=== PATIENT | female | born 1940 | race Asian ===

== ENCOUNTER → 2022-01-16 13:20 | Outpatient (BNVA) | payer MEDICARE, SELFPAY | PROVIDERS: PCP Internal Medicine; Visit Provider Internal Medicine Endocrinology, Diabetes & Metabolism | DX: E21.3 Hyperparathyroidism, unspecified (principal); E04.2 Nontoxic multinodular goiter; M81.0 Age-related osteoporosis without current pathological fracture; Z79.899 Other long term (current) drug therapy | CPT/HCPCS: 99212 ==

== ENCOUNTER 2022-01-29 13:47 | Outpatient (REF) | payer MEDICARE, SELFPAY ==
[2022-01-29 14:37] LABS: Calcium 11.3 mg/dL (8.4-10.2)
[2022-01-29 15:02] LABS: Vitamin D 25-OH Total 38.9 ng/mL (>30)
[2022-01-30 12:06] LABS: Calcium (PTHI) 11.1 mg/dL (8.6-10.4); PTHI 143 pg/mL (16-77)
== END 2022-01-29 13:48 | disposition home or self-care (01) ==
LOC: HO.LAB 13:47
PROVIDERS: Visit Provider Internal Medicine Endocrinology, Diabetes & Metabolism
DX: E21.3 Hyperparathyroidism, unspecified (principal)
CPT/HCPCS: 36415; 82040; 82306; 82310; 83970

== ENCOUNTER → 2022-02-14 14:29 | Outpatient (BNVA) | payer MEDICARE, SELFPAY | PROVIDERS: Visit Provider Internal Medicine Endocrinology, Diabetes & Metabolism | DX: E21.0 Primary hyperparathyroidism (principal) | CPT/HCPCS: 99212 ==

== ENCOUNTER 2022-03-18 13:24 | Outpatient (REF) | payer MEDICARE, SELFPAY ==
--- NOTE | ~2022-03-18 | MM_ITS ---
EXAMINATION: BONE DENSITOMETRY CLINICAL INDICATION: Hyperparathyroidism, unspecified. COMPARISON: Baseline BD dated 09/16/2018. This is the patient's baseline examination for the forearm radius 33%. TECHNIQUE: Using a [employer] DXA System (software version: 13.1) manufactured by [employer], dual-energy x-ray absorptiometry was performed of the lumbar spine, left hip, and left forearm radius 33%. The images are of good technical quality. Summary results are attached. FINDINGS: AP SPINE L1-L4: Current: BMD 0.753 g/cm2, Z-score -1.6, T-score -3.6, osteoporosis, 4.6% decrease from baseline (<5% change is not significant). Baseline: BMD 0.789 g/cm2. LEFT FEMUR, NECK: Current: BMD 0.623 g/cm2, Z-score -0.8, T-score -3.0, osteoporosis. Baseline: BMD 0.635 g/cm2. LEFT FEMUR, TOTAL: Current: BMD 0.554 g/cm2, Z-score -1.5, T-score -3.6, osteoporosis, 1.6% decrease from baseline (<5% change is not significant). Baseline: BMD 0.563 g/cm2. LEFT FOREARM RADIUS 33%: BMD 0.524 g/cm2, Z-score -1.3, T-score -4.0, osteoporosis. Prior: Not previously measured. IDENTIFIED RISK FACTORS: Osteoporosis, hyperparathyroidism, dementia. Early menopause, secondary osteoporosis. HISTORY OF FRACTURE: None listed. MEDICATIONS: Vitamin D. MM/XR DEXA axial skeleton IMPRESSION: 1. DIAGNOSIS: Osteoporosis based on the lowest T-score value of -4.0 in the forearm radius 33% applying World Health Organization criteria. 2. 10-YEAR FRACTURE RISK PREDICTION, FRAX: According to the guidelines, FRAX calculation should only be performed on patients in the osteopenia bone density category. Therefore, FRAX was not performed on this patient. 3. Treatment Recommendations: NOF guidelines recommend consideration for treatment in postmenopausal women and men age 50 and older presenting with the following: -A hip or vertebral (clinical or morphometric) fracture. -T-score less than or equal to -2.5 at the femoral neck or spine after appropriate evaluation to exclude secondary causes. -Low bone mass at the hip or spine and a 10-year fracture probability by FRAX of greater than or equal to 3% for hip fracture or greater than or equal to 20% for major osteoporotic fracture based on the [place] adapted WHO algorithm. 4. Other Recommendations: All treatment decisions require clinical judgment and consideration of individual patient factors, including patient preferences, comorbidities, previous drug use, risk factors not captured in the FRAX model (e.g. frailty, falls, vitamin D deficiency, increased bone turnover, interval significant decline in bone density) and possible under or overestimation of fracture risk by FRAX. Additional medical evaluation for secondary cause of low bone mineral density may be appropriate. FUTURE SCAN RECOMMENDATION: People with diagnosed cases of osteoporosis or at high risk for fracture should have regular bone mineral density tests. For patients eligible for Medicare, routine testing is allowed once every 2 years. The testing frequency can be increased to one year for patients who have rapidly progressing disease, those who are receiving or discontinuing medical therapy to restore bone mass, or have additional risk factors.
--- NOTE | ~2022-03-18 | US_ITS ---
EXAMINATION: US RETROPERITONEAL LIMITED (RENAL ONLY) CLINICAL INFORMATION: Hyperparathyroidism, unspecified. COMPARISON: None TECHNIQUE: Real-time imaging of the kidneys. FINDINGS: RIGHT KIDNEY: 9.0 x 4.4 x 4.5 cm (SAG x AP x TRV). The kidney is normal in size, contour, and echogenicity. Renal cortical thickness is normal. No calculi or focal parenchymal lesions. No hydronephrosis. LEFT KIDNEY: 10.2 x 5.1 x 4.6 cm (SAG x AP x TRV). The kidney is normal in size, contour, and echogenicity. Renal cortical thickness is normal. No calculi or focal parenchymal lesions. No hydronephrosis. US/US renal BI IMPRESSION: No hydronephrosis or nephrolithiasis.
== END 2022-03-18 13:25 | disposition home or self-care (01) ==
LOC: HO.US 13:24
PROVIDERS: Visit Provider Internal Medicine Endocrinology, Diabetes & Metabolism
DX: Z13.820 Encounter for screening for osteoporosis (principal); E21.3 Hyperparathyroidism, unspecified; Z78.0 Asymptomatic menopausal state; M81.0 Age-related osteoporosis without current pathological fracture
CPT/HCPCS: 76775; 77080

== ENCOUNTER 2022-05-26 10:55 | Outpatient (REF) | payer MEDICARE, SELFPAY ==
[2022-05-26 12:34] LABS: Albumin Level 4.1 g/dL (3.5-5.0); Calcium 10.1 mg/dL (8.4-10.2)
== END 2022-05-26 10:56 | disposition home or self-care (01) ==
LOC: HO.LAB 10:55
PROVIDERS: PCP Nurse Practitioner Family; Visit Provider Internal Medicine Endocrinology, Diabetes & Metabolism
DX: E21.3 Hyperparathyroidism, unspecified (principal)
CPT/HCPCS: 36415; 82040; 82310

== ENCOUNTER → 2022-05-27 10:28 | Outpatient (BNVA) | payer MEDICARE, SELFPAY | PROVIDERS: Visit Provider Internal Medicine Endocrinology, Diabetes & Metabolism | DX: E21.3 Hyperparathyroidism, unspecified (principal) | CPT/HCPCS: 99212 ==

== ENCOUNTER 2022-11-26 13:20 | Outpatient (REF) | payer OTHER, SELFPAY ==
[2022-11-26 15:31] LABS: Free T4 (Free Thyroxine) 0.98 ng/dL (0.71-1.85); Thyroid Stimulating Hormone 2.74 uIU/mL (0.32-4.0)
[2022-11-27 15:39] LABS: Calcium (PTHI) 9.5 mg/dL (8.6-10.4); PTHI 58 pg/mL (16-77)
== END 2022-11-26 13:21 | disposition home or self-care (01) ==
LOC: HO.LAB 13:20
PROVIDERS: Visit Provider Internal Medicine Endocrinology, Diabetes & Metabolism
DX: E21.3 Hyperparathyroidism, unspecified (principal); E04.2 Nontoxic multinodular goiter; M81.0 Age-related osteoporosis without current pathological fracture
CPT/HCPCS: 36415; 83970; 84439; 84443; 99212

== ENCOUNTER 2022-12-15 14:16 | Outpatient (REF) | payer OTHER, SELFPAY ==
--- NOTE | ~2022-12-15 | US_ITS ---
EXAMINATION: US THYROID CLINICAL INFORMATION: Nontoxic multinodular goiter. COMPARISON: Ultrasound thyroid 01/04/2020 and 11/04/2018. US-guided thyroid biopsy 12/30/2018. TECHNIQUE: Linear transducer grayscale and color Doppler examination with attention to the region of the thyroid. FINDINGS: SIZE: Measurements of the thyroid lobes and nodules are given in sagittal, anteroposterior and transverse dimensions respectively. Right Thyroid Lobe: 4.9 x 1.7 x 2.2 cm, volume 9.6 mL. Previously 5.6 x 1.7 x 2.1 cm, volume 10.6 mL. Parenchyma: The gland echotexture is heterogeneous. Thyroid vascularity is increased. Left Thyroid Lobe: 4.4 x 1.7 x 1.7 cm, volume 6.7 mL. Previously 5.0 x 1.4 x 1.6 cm, volume 6.0 mL. Parenchyma: The gland echotexture is heterogeneous. Thyroid vascularity is increased. Isthmus: 0.4 cm in maximum AP dimension. Previously 0.1 cm. Estimated total number of nodules greater than or equal to 1 cm: 4. [employer] nodules are described as follows: 1. Location: Right mid. Size: 2.8 x 1.3 x 1.8 cm, volume 3.4 mL. Previously: 2.3 x 1.3 x 1.9 cm, volume 3.0 mL. Nodule characteristics: Composition: Solid/almost completely solid (2). Echogenicity: Isoechoic (1). Shape: Not taller than wide (0). Margins: Ill-defined (0). Echogenic Foci: Punctate echogenic foci (3). ACR TI-RADS total points: 6 ACR TI-RADS category: 4 Significant change in size (>/= 20% in 2 dimensions and minimal increase of 2 mm or 50% or greater increase in volume): No Change in features: No Change in ACR TI-RADS risk category: No 2. Location: Right medial mid. Size: 0.9 x 0.4 x 0.8 cm, volume 0.1 mL. Previously: 0.9 x 0.4 x 0.7 cm, volume 0.1 mL. Nodule characteristics: Composition: Solid (2). Echogenicity: Isoechoic (1). Shape: Not taller than wide (0). Margins: Smooth (0). Echogenic Foci: None (0). ACR TI-RADS total points: 3 ACR TI-RADS category: 3 Significant change in size (>/= 20% in 2 dimensions and minimal increase of 2 mm or 50% or greater increase in volume): No Change in features: Change in ACR TI-RADS risk category: No 3. Location: Left superior. Size: 1.6 x 1.2 x 1.0 cm, volume 1.0 mL. Previously: New since the previous study. Nodule characteristics: Composition: Solid (2). Echogenicity: Isoechoic (1). Shape: Taller than wide (3). Margins: Ill-defined (0). Echogenic Foci: Punctate echogenic foci (3). ACR TI-RADS total points: 9 ACR TI-RADS category: 5 4. Location: Left mid. Size: 1.5 x 0.9 x 0.9 cm, volume 0.6 mL. Previously: 1.5 x 1.0 x 1.2 cm, volume 0.9 mL. Nodule characteristics: Composition: Solid/almost completely solid (2). Echogenicity: Isoechoic (1). Shape: Not taller than wide (0). Margins: Ill-defined (0). Echogenic Foci: Punctate echogenic foci (3). ACR TI-RADS total points: 6 ACR TI-RADS category: 4 Significant change in size (>/= 20% in 2 dimensions and minimal increase of 2 mm or 50% or greater increase in volume): No Change in features: No Change in ACR TI-RADS risk category: No 5. Location: Left inferior. Size: 1.4 x 0.8 x 1.2 cm, volume 0.7 mL. Previously: 1.7 x 0.6 x 1.3 cm, volume 0.7 mL. Nodule characteristics: Composition: Solid/almost completely solid (2). Echogenicity: Isoechoic (1). Shape: Not taller than wide (0). Margins: Smooth (0). Echogenic Foci: None (0). ACR TI-RADS total points: 3 ACR TI-RADS category: 3 Significant change in size (>/= 20% in 2 dimensions and minimal increase of 2 mm or 50% or greater increase in volume): No Change in features: No Change in ACR TI-RADS risk category: No NODES: No lymphadenopathy is seen in the tissue surrounding the thyroid gland. US/US thyroid IMPRESSION: 1. A 2.8 cm in maximal diameter right thyroid lobe interpolar nodule and a 1.6 cm in maximal diameter left thyroid lobe interpolar nodule meet ACR biopsy criteria and are amenable to ultrasound-guided biopsy, if clinically indicated and not already performed. 2. There is a mild asymmetric goiter, right lobe greater than left. 3. There is heterogeneous thyroid echotexture and increased vascularity, which can be associated with thyroiditis. ACR TI-RADS RECOMMENDATION REFERENCE: Ultrasound-guided fine-needle aspiration, followup ultrasound, no further follow up. * TR1 (0 point) and TR2 (2 points): No FNA or follow up. * TR3 (3 points): FNA if more than or equal to 2.5 cm in maximum dimension, followup ultrasound in 1, 3 and 5 years if 1.5 to 2.4 cm in maximum dimension. * TR4 (4-6 points): FNA if more than or equal to 1.5 cm in maximum dimension, followup ultrasound in 1, 2, 3 and 5 years if 1 to 1.4 cm in maximum dimension. * TR5 (more than or equal to 7 points): FNA if more than or equal to 1 cm in maximum dimension, followup ultrasound every year for 5 years if 0.5 to 0.9 cm in maximum dimension. * TR3, TR4 or TR5 nodules that are below the size threshold for followup receive no follow up.
== END 2022-12-15 14:17 | disposition home or self-care (01) ==
LOC: HO.US 14:16
PROVIDERS: Visit Provider Internal Medicine Endocrinology, Diabetes & Metabolism
DX: E04.2 Nontoxic multinodular goiter (principal)
CPT/HCPCS: 76536

== ENCOUNTER 2023-06-02 09:37 | Outpatient (AMB) | payer MEDICARE, SELFPAY ==
--- NOTE | 2023-06-02 09:41 | MHC.OFFVIS ---
Intake Vital Signs 06/02/23 09:45 Height 5 ft 5 in Weight 134 lb BMI 22.3 BP 137/74 Blood Pressure Location Lt brachial Pulse 72 Intake Visit Reasons: osteoporosis and MNG Intake Note: Patient presents for osteoporosis and MNG follow up visit. Information Interpreted: non-clinical & clinical (Mita Rojo) Accompanied by: Son Allergies No Known Allergies Allergy (Verified 06/02/23 09:47) Medication List - Last Reconciled 06/02/23 by Lamin Lazaro MD alendronate 70 mg PO QWEEK amlodipine 2.5 mg PO DAILY atorvastatin 10 mg PO DAILY cholecalciferol (vitamin D3) 50 mcg PO DAILY donepezil 10 mg PO BEDTIME HPI HPI Comments History of Present Illness Details This is a 83-year-old Mandarin female with a history of primary hyperparathyroidism and osteoporosis. s vitamin D3 2000 IU per day . No kidney stones in past. No fragility fx in past . S/P parathyroidectomy with removal of R inferor parathyroid She also has a history of a multinodular goiter status post FNA of a left midpole nodule and right nodule 12/30/2018 with benign cytology. Recent thyroid ultrasound November 2022 showed stability in size of the nodules On alendronate for osteoporosis [facility] Medical History (Updated 11/26/22 @ 13:56 by Lamin Lazaro MD) Hyperparathyroidism Multinodular goiter (nontoxic) Osteoporosis Surgical History History of back surgery Hx of oral surgery Family History Father Diabetes Mother No problems noted. Social History (Updated 11/26/22 @ 13:33 by SHELIA Herndon) Household Members: None Alcohol intake: never Patient Tobacco Use Status: Never used Tobacco Physical Exam Vital Signs: Last Vital Signs Pulse 72 06/02/23 09:45 BP 137/74 06/02/23 09:52 Const Other: Thyroid gland is normal size weighs by 15 g per day no thyroid nodules palpated. Reflexes 2+ DTR. Assessment & Plan Assessment & Plan (1) Osteoporosis: Code(s): M81.0 - Age-related osteoporosis without current pathological fracture Plan: Would stay on vitamin-D supplementation as well as alendronate. (2) Hyperparathyroidism: Code(s): E21.3 - Hyperparathyroidism, unspecified Plan: This 83-year-old female with a history of primary hyperparathyroidism status post parathyroidectomy with normalization of calcium and PTH (3) Multinodular goiter (nontoxic): Code(s): E04.2 - Nontoxic multinodular goiter Plan: She is status post FNA of a right and left thyroid nodule with benign cytology in the past. Ultrasound shows stability in the size of the nodules Will recheck TSH and free T4 . Continue to follow with serial ultrasound Orders: Orders Free T4 (Free Thyroxine) Today E04.2 - Nontoxic multinodular goiter, E21.3 - Hyperparathyroidism, unspecified, M81.0 - Age-related osteoporosis without current pathological fracture Thyroid Stimulating Hormone Today E04.2 - Nontoxic multinodular goiter, E21.3 - Hyperparathyroidism, unspecified, M81.0 - Age-related osteoporosis without current pathological fracture Coding Level of Care Code Est Pt Level 3 (28841) Diagnoses Osteoporosis M81.0 Hyperparathyroidism E21.3 Multinodular goiter (nontoxic) E04.2
[2023-06-02 09:45] VITALS: BP 137/74; PULSE 72; BMI 22.3
== END 2023-06-02 10:06 | disposition home or self-care (01) ==
PROVIDERS: PCP Internal Medicine; Referring Provider Internal Medicine; Visit Provider Internal Medicine Endocrinology, Diabetes & Metabolism
DX: M81.0 Age-related osteoporosis without current pathological fracture (principal); E21.3 Hyperparathyroidism, unspecified; E04.2 Nontoxic multinodular goiter
CPT/HCPCS: 99213

== ENCOUNTER → 2023-06-02 09:37 | Outpatient (BNVA) | payer MEDICARE, SELFPAY | PROVIDERS: Visit Provider Internal Medicine Endocrinology, Diabetes & Metabolism | DX: M81.0 Age-related osteoporosis without current pathological fracture (principal); E21.3 Hyperparathyroidism, unspecified; E04.2 Nontoxic multinodular goiter | CPT/HCPCS: 99212 ==

== ENCOUNTER 2023-06-02 10:09 | Outpatient (REF) | payer MEDICARE, SELFPAY ==
[2023-06-02 14:26] LABS: Free T4 (Free Thyroxine) 1.05 ng/dL (0.71-1.85)
== END 2023-06-02 10:10 | disposition home or self-care (01) ==
LOC: HO.10HDL 10:09
PROVIDERS: Visit Provider Internal Medicine Endocrinology, Diabetes & Metabolism
DX: M81.0 Age-related osteoporosis without current pathological fracture (principal); E04.2 Nontoxic multinodular goiter; E21.3 Hyperparathyroidism, unspecified
CPT/HCPCS: 36415; 84439; 84443

== ENCOUNTER 2024-06-03 11:47 | Outpatient (REF) | payer MEDICARE, SELFPAY ==
[2024-06-03 13:39] LABS: Vitamin D 25-OH Total 59.1 ng/mL (>30)
[2024-06-04 18:18] LABS: Calcium, Ionized 5.3 mg/dL (4.7-5.5)
== END 2024-06-03 11:48 | disposition home or self-care (01) ==
LOC: HO.LAB 11:47
PROVIDERS: Visit Provider Nurse Practitioner Adult Health
DX: M81.0 Age-related osteoporosis without current pathological fracture (principal)
CPT/HCPCS: 36415; 82040; 82306; 82310; 82330

== ENCOUNTER 2024-06-06 11:42 | Outpatient (REF) | payer MEDICARE, SELFPAY ==
[2024-06-12 16:09] LABS: N-Telopeptide 15 (see note); NTXCreaRU 101 mg/dL (20-275)
== END 2024-06-06 11:43 | disposition home or self-care (01) ==
LOC: HO.LNP 11:42
PROVIDERS: Visit Provider Nurse Practitioner Adult Health
DX: M81.0 Age-related osteoporosis without current pathological fracture (principal)
CPT/HCPCS: 82523

== ENCOUNTER 2024-06-07 09:10 | Outpatient (AMB) | payer MEDICARE, SELFPAY ==
--- NOTE | 2024-06-07 09:11 | A.OFFVIS_ITS ---
Vital Signs 06/07/24 09:15 Height 5 ft 3 in Weight 141 lb 5.061 oz BMI 25.0 BP 162/72 H Blood Pressure Location Lt brachial Position Sitting Pulse 59 Pulse Source Pulse Oximeter Intake Visit Reasons: osteoporosis and MNG/CONFIRMED Intake Note: Patient present today for Osteoporosis and MNG follow up visit. Transcribing Machine Operator Services: Transcribing Machine Operator Offered & Declined Accompanied by: Grand Child Allergies No Known Allergies Allergy (Verified 06/07/24 09:17) HPI Comments Details: This is a 84-year-old Mandarin female with a history of primary hyperparathyroidism and osteoporosis. s vitamin D3 2000 IU per day . No kidney stones in past. No fragility fx in past . S/P parathyroidectomy with removal of R inferor parathyroid She also has a history of a multinodular goiter status post FNA of a left midpole nodule and right nodule 12/30/2018 with benign cytology. Recent thyroid ultrasound November 2022 showed stability in size of the nodules On alendronate for osteoporosis. No fx since last visit [facility] Medical History (Updated 11/26/22 @ 13:56 by Lamin Lazaro MD) Osteoporosis Multinodular goiter (nontoxic) Hyperparathyroidism Surgical History History of back surgery Hx of oral surgery Family History Father Diabetes Mother No problems noted. Social History (Updated 11/26/22 @ 13:33 by SHELIA Herndon) Household Members: None Alcohol intake: never Patient Tobacco Use Status: Never used Tobacco Assessment & Plan Assessment & Plan (1) Osteoporosis: Code(s): M81.0 - Age-related osteoporosis without current pathological fracture Category: Medical Plan: Would stay on vitamin-D supplementation as well as alendronate. Urine NTX is pending Will check urine NTX when available (2) Hyperparathyroidism: Code(s): E21.3 - Hyperparathyroidism, unspecified Category: Medical Plan: This 83-year-old female with a history of primary hyperparathyroidism status post parathyroidectomy with normalization of calcium and PTH repeat calcium recently is normal (3) Multinodular goiter (nontoxic): Code(s): E04.2 - Nontoxic multinodular goiter Category: Medical Plan: She is status post FNA of a right and left thyroid nodule with benign cytology in the past. Ultrasound shows stability in the size of the nodules Will recheck TSH and free T4 . Will also obtain repeat thyroid ultrasound Orders: Orders Free T4 (Free Thyroxine) Today E04.2 - Nontoxic multinodular goiter Thyroid Stimulating Hormone Today E04.2 - Nontoxic multinodular goiter US thyroid Today E04.2 - Nontoxic multinodular goiter Coding Level of Care Code Est Pt Level 3 (82858) Diagnoses Osteoporosis M81.0 Hyperparathyroidism E21.3 Multinodular goiter (nontoxic) E04.2
[2024-06-07 09:15] VITALS: BP 162/72; PULSE 59; BMI 25.0
== END 2024-06-07 09:41 | disposition home or self-care (01) ==
PROVIDERS: PCP Internal Medicine; Visit Provider Internal Medicine Endocrinology, Diabetes & Metabolism
DX: M81.0 Age-related osteoporosis without current pathological fracture (principal); E21.3 Hyperparathyroidism, unspecified; E04.2 Nontoxic multinodular goiter
CPT/HCPCS: 99213

== ENCOUNTER → 2024-06-07 09:10 | Outpatient (BNVA) | payer MEDICARE, SELFPAY | PROVIDERS: PCP Internal Medicine; Visit Provider Internal Medicine Endocrinology, Diabetes & Metabolism | DX: M81.0 Age-related osteoporosis without current pathological fracture (principal); E21.3 Hyperparathyroidism, unspecified; E04.2 Nontoxic multinodular goiter | CPT/HCPCS: 99212 ==

== ENCOUNTER 2024-06-23 09:48 | Outpatient (REF) | payer MEDICARE, SELFPAY ==
--- NOTE | ~2024-06-23 | US_ITS ---
EXAMINATION: US THYROID CLINICAL INFORMATION: Nontoxic multinodular goiter, fine needle aspiration December 30, 2018. COMPARISON: 12/15/2022, 01/04/2020, 11/04/2018. TECHNIQUE: Linear transducer grayscale and color Doppler examination with attention to the region of the thyroid. FINDINGS: SIZE: Measurements of the thyroid lobes and nodules are given in sagittal, anteroposterior and transverse dimensions respectively. Right Thyroid Lobe: 5.0 x 1.5 x 2.5 cm, volume 9.6 mL. Parenchyma: The gland echotexture is heterogeneous. Thyroid vascularity is increased. Left Thyroid Lobe: 4.1 x 1.7 x 1.5 cm, volume 5.4 mL. Parenchyma: The gland echotexture is heterogeneous. Thyroid vascularity is increased. Isthmus: 0.2 cm in maximum AP dimension. Estimated total number of nodules greater than or equal to 1 cm: 4. [employer] nodules are described as follows: 1. Location: Right mid. Size: 2.7 x 1.4 x 1.9 cm, volume 3.8 mm, previously 2.8 x 1.3 x 1.8 cm, volume of 3.4 mL. Nodule characteristics: Composition: Solid/almost completely solid (2). Echogenicity: Isoechoic (1). Shape: Not taller than wide (0). Margins: Ill-defined (0). Echogenic Foci: Punctate echogenic foci (3). ACR TI-RADS total points: 6, previously 6. ACR TI-RADS category: 4, previously 4. 2. Location: Right medial midpole. Size: 0.8 x 0.3 x 1.1 cm, volume 0.1 mm, previously 0.9 x 0.4 x 0.8 cm, volume 0.1 mL. Nodule characteristics: Composition: Solid/almost completely solid (2). Echogenicity: Isoechoic (1). Shape: Not taller than wide (0). Margins: Smooth (0). Echogenic Foci: None (0). ACR TI-RADS total points: 3, previously 3. ACR TI-RADS category: 3, previously 3. 3. Location: Left upper. Size: 1.1 x 0.8 x 1.0 cm, volume 0.5 mL, volume 1.6 x 1.2 x 1.0 cm, volume 1.0 mL mL. Nodule characteristics: Composition: Solid (2). Echogenicity: Isoechoic (1). Shape: Not taller than wide (0). Margins: Ill-defined (0). Echogenic Foci: Punctate echogenic foci (3). ACR TI-RADS total points: 6, previously 9. ACR TI-RADS category: 4, previously 5. 4. Location: Left mid. Size: 1.3 x 0.8 x 1.1 cm, volume 0.6 mm, previously 1.5 x 0.9 x 0.9 cm, volume 0.6 mL. Nodule characteristics: Composition: Solid/almost completely solid (2). Echogenicity: Isoechoic (1). Shape: Not taller than wide (0). Margins: Ill-defined (0). Echogenic Foci: Punctate echogenic foci (3). ACR TI-RADS total points: 6, previously 6. ACR TI-RADS category: 4, previously 4. 5. Location: Left lower. Size: 1.7 x 0.9 x 1.4 cm, volume 1.1 mL, previously 1.4 x 0.8 x 1.2 cm, volume 0.7 mL Nodule characteristics: Composition: Solid/almost completely solid (2). Echogenicity: Isoechoic (1). Shape: Not taller than wide (0). Margins: Smooth (0). Echogenic Foci: None (0). ACR TI-RADS total points: 3, previously 3. ACR TI-RADS category: 3, previously 3. NODES: No lymphadenopathy is seen in the tissue surrounding the thyroid gland. US/US thyroid IMPRESSION: Multinodular thyroid gland. 2.7 cm right mid TR4 nodule meets criteria for biopsy. Fine-needle aspiration recommended if not already performed. Additional thyroid nodules as detailed above for which annual surveillance is recommended. ACR TI-RADS RECOMMENDATION REFERENCE: Ultrasound-guided fine-needle aspiration, followup ultrasound, no further follow up. * TR1 (0 point) and TR2 (2 points): No FNA or follow up. * TR3 (3 points): FNA if more than or equal to 2.5 cm in maximum dimension, followup ultrasound in 1, 3 and 5 years if 1.5 to 2.4 cm in maximum dimension. * TR4 (4-6 points): FNA if more than or equal to 1.5 cm in maximum dimension, followup ultrasound in 1, 2, 3 and 5 years if 1 to 1.4 cm in maximum dimension. * TR5 (more than or equal to 7 points): FNA if more than or equal to 1 cm in maximum dimension, followup ultrasound every year for 5 years if 0.5 to 0.9 cm in maximum dimension. * TR3, TR4 or TR5 nodules that are below the size threshold for followup receive no follow up. Electronically signed by: Jes Tang MD 07/06/2024 10:23 AM EDT
--- NOTE | ~2024-06-23 | MM_ITS ---
EXAMINATION: BONE DENSITOMETRY CLINICAL INDICATION: Hyperparathyroidism. COMPARISON: Previous BD dated 03/18/2022 and baseline BD dated 09/16/2018. TECHNIQUE: Using a [employer] DXA System (software version: 13.1) manufactured by [employer], dual-energy x-ray absorptiometry was performed of the lumbar spine, left hip, and left forearm radius 33%. The images are of good technical quality. Summary results are attached. FINDINGS: LEFT FEMUR, NECK: Current: BMD 0.634 g/cm2, Z-score -0.6, T-score -2.9, osteoporosis. Prior: BMD 0.623 g/cm2. Baseline: BMD 0.635 g/cm2. LEFT FEMUR, TOTAL: Current: BMD 0.570 g/cm2, Z-score -1.3, T-score -3.5, osteoporosis, 2.9% increase from previous, 1.2% increase from baseline (<5% change is not significant). Prior: BMD 0.554 g/cm2. Baseline: BMD 0.563 g/cm2. AP SPINE L1-L4: Current: BMD 0.855 g/cm2, Z-score -0.7, T-score -2.7, osteoporosis, 13.5% increase from previous, 8.4% increase from baseline (<5% change is not significant). Prior: BMD 0.753 g/cm2. Baseline: BMD 0.789 g/cm2. LEFT FOREARM RADIUS 33%: BMD 0.558 g/cm2, Z-score -0.7, T-score -3.6, osteoporosis, 6.5% increase from baseline (<5% change is not significant). Baseline: BMD 0.524 g/cm2. IDENTIFIED RISK FACTORS: Menopause, dementia, hyperparathyroidism. HISTORY OF FRACTURE: None listed. MEDICATIONS: Vitamin D. MM/XR DEXA appendicular skeleton IMPRESSION: 1. DIAGNOSIS: Osteoporosis based on the lowest T-score value of -3.6 in the forearm radius 33% applying World Health Organization criteria. 2. 10-YEAR FRACTURE RISK PREDICTION, FRAX: According to the guidelines, FRAX calculation should only be performed on patients in the osteopenia bone density category. Therefore, FRAX was not performed on this patient. 3. Treatment Recommendations: NOF guidelines recommend consideration for treatment in postmenopausal women and men age 50 and older presenting with the following: -A hip or vertebral (clinical or morphometric) fracture. -T-score less than or equal to -2.5 at the femoral neck or spine after appropriate evaluation to exclude secondary causes. -Low bone mass at the hip or spine and a 10-year fracture probability by FRAX of greater than or equal to 3% for hip fracture or greater than or equal to 20% for major osteoporotic fracture based on the [place] adapted WHO algorithm. 4. Other Recommendations: All treatment decisions require clinical judgment and consideration of individual patient factors, including patient preferences, comorbidities, previous drug use, risk factors not captured in the FRAX model (e.g. frailty, falls, vitamin D deficiency, increased bone turnover, interval significant decline in bone density) and possible under or overestimation of fracture risk by FRAX. Additional medical evaluation for secondary cause of low bone mineral density may be appropriate. FUTURE SCAN RECOMMENDATION: People with diagnosed cases of osteoporosis or at high risk for fracture should have regular bone mineral density tests. For patients eligible for Medicare, routine testing is allowed once every 2 years. The testing frequency can be increased to one year for patients who have rapidly progressing disease, those who are receiving or discontinuing medical therapy to restore bone mass, or have additional risk factors. Electronically signed by: Fredrick Hernandez MD 06/29/2024 09:03 AM [facility] HERNANDEZ
== END 2024-06-23 09:49 | disposition home or self-care (01) ==
LOC: HO.MAMMO 09:48
PROVIDERS: PCP Internal Medicine; Visit Provider Internal Medicine Endocrinology, Diabetes & Metabolism
DX: Z13.820 Encounter for screening for osteoporosis (principal); E21.3 Hyperparathyroidism, unspecified; E04.2 Nontoxic multinodular goiter
CPT/HCPCS: 76536; 77081

== ENCOUNTER 2024-10-07 09:12 | Outpatient (REF) | payer MEDICARE, SELFPAY ==
[2024-10-07 12:38] LABS: Albumin Level 4.2 g/dL (3.5-5.0); Anion Gap 11 (12-20); Blood Urea Nitrogen 18 mg/dL (9-16); Calcium 9.7 mg/dL (8.4-10.2); Carbon Dioxide 30 mmol/L (22-29); Chloride 108 mmol/L (96-108); Estimated Glomerular Filt Rate 53; Glucose Random 87 mg/dL (60-115); Potassium 4.2 mmol/L (3.3-5.1); Sodium 145 mmol/L (135-145)
[2024-10-07 12:51] LABS: Parathyroid Hormone Intact 53.3 pg/mL (8.7-77.1)
[2024-10-07 12:55] LABS: Free T4 (Free Thyroxine) 1.11 ng/dL (0.71-1.85); TSH reflex Free T4 2.63 uIU/mL (0.32-4.0); Vitamin D 25-OH Total 63.1 ng/mL (>30)
[2024-10-10 15:02] LABS: Calcium, Ionized 5.2 mg/dL (4.7-5.5)
[2024-10-13 15:49] LABS: Alkaline Phosphatase Bone 11.1 mcg/L (see note)
== END 2024-10-07 09:13 | disposition home or self-care (01) ==
LOC: HO.LAB 09:12
PROVIDERS: PCP Internal Medicine; Visit Provider Student in an Organized Health Care Education/Training Program
DX: E04.2 Nontoxic multinodular goiter (principal); M81.0 Age-related osteoporosis without current pathological fracture; M54.50 Low back pain, unspecified; G89.29 Other chronic pain
CPT/HCPCS: 36415; 80048; 82040; 82306; 82330; 83970; 84075; 84439; 84443; 99212

== ENCOUNTER 2024-10-07 09:12 | Outpatient (AMB) | payer MEDICARE, SELFPAY ==
--- NOTE | 2024-10-07 09:40 | MHC.OFFVIS ---
Vital Signs 10/07/24 09:42 Weight 143 lb 15.39 oz BP 140/68 H Blood Pressure Location Rt brachial Position Sitting Pulse 64 Pulse Source Pulse Oximeter Intake Visit Reasons: Multinodular goiter-confirmed Intake Note: Patient present today for Multinodular goiter office visit. Mathematics Department Chair Required: Yes Mathematics Department Chair [facility] Mathematics Department Chair Services: Mathematics Department Chair Offered & Declined Accompanied by: Son Allergies No Known Allergies Allergy (Verified 10/07/24 09:44) Medication List - Last Reconciled 10/07/24 by Angelica Land MD alendronate 70 mg PO QWEEK amlodipine 2.5 mg PO DAILY atorvastatin 10 mg PO DAILY cholecalciferol (vitamin D3) 50 mcg PO DAILY donepezil 10 mg PO BEDTIME memantine 10 mg PO QPM HPI Comments Details: This is a 84-year-old Mandarin female with a history of primary hyperparathyrodism s/p right inferior parathyroidectomy and osteoporosis. Also follows for MNG. primary hyperparathyroidism osteoporosis s/p right inferior parathyroidectomy 07/2022, with Dr. Eric Marie at [facility] , intraop PTH dropped from 420 to 27 osteoporosis. on fosamax 70 mg weekly unclear on how long she has been on this but patient sons endorses at least been on it for the past 5 years s vitamin D3 2000 IU per day . No kidney stones in past. No fragility fx Dexa 06/25 spine t score -2.7 ,13.7 %increase from 2022 in BMD , left femu nec k-2.9 and total femor -3.5 , 2.9 % increase from 2022 foraearm -3.6 6.5 % increase from baseline Lost 2 inches of height since 1 years Complaining of worsening back pain for the past 1 year HAd a recent fall as fell on knees last week, no known fractures She has all dentures MNG She also has a history of a multinodular goiter unclear year of diagnosis status post FNA of a left midpole nodule and right nodule 12/30/2018 with benign cytology. Recent thyroid ultrasound June 2024 showed stability in size of the nodules Denies compressive symptoms No hypo/hyperthyroid symptoms No family history of thyroid cancer No head or neck radiation history Physical exam General: sitting comfortably in no acute distress HEENT: normocephalic/atraumatic, moist oral mucosa Neck: supple, 2 cm palpable right-sided thyroid nodule , no dorsocervical or supraclavicular fat pads Cardiac: normal heart sounds Pulm: normal breath sounds B/L, no added breath sounds Abd: not distended, no tenderness Extremities: no edema, no signs of myxedema Neuro: AAO x3, Speech: normal, no facial droop, moving all 4 extremities MSK: Tenderness in lower back, as well as unstable gait Laboratory Tests 11/04/18 04/16/19 01/29/22 08:00 08:00 13:58 Calcium 11.3 H Ionized Calcium Albumin 4.0 N-Telopeptide X-linked 42 58 25-OH Vitamin D Total TSH Free T4 PTH Intact 143 H 05/26/22 11/26/22 06/02/23 11:10 14:18 10:15 Calcium 10.1 D Ionized Calcium Albumin 4.1 N-Telopeptide X-linked 25-OH Vitamin D Total TSH 2.70 Free T4 1.05 PTH Intact 58 06/03/24 06/06/24 12:04 09:15 Calcium 10.0 Ionized Calcium 5.3 Albumin 4.0 N-Telopeptide X-linked 15 25-OH Vitamin D Total 59.1 TSH Free T4 PTH Intact US THYROID 06/25 CLINICAL INFORMATION: Nontoxic multinodular goiter, fine needle aspiration December 30, 2018. COMPARISON: 12/15/2022, 01/04/2020, 11/04/2018. TECHNIQUE: Linear transducer grayscale and color Doppler examination with attention to the region of the thyroid. FINDINGS: SIZE: Measurements of the thyroid lobes and nodules are given in sagittal, anteroposterior and transverse dimensions respectively. Right Thyroid Lobe: 5.0 x 1.5 x 2.5 cm, volume 9.6 mL. Parenchyma: The gland echotexture is heterogeneous. Thyroid vascularity is increased. Left Thyroid Lobe: 4.1 x 1.7 x 1.5 cm, volume 5.4 mL. Parenchyma: The gland echotexture is heterogeneous. Thyroid vascularity is increased. Isthmus: 0.2 cm in maximum AP dimension. Estimated total number of nodules greater than or equal to 1 cm: 4. Strategic Debriefing Officer nodules are described as follows: 1. Location: Right mid. Size: 2.7 x 1.4 x 1.9 cm, volume 3.8 mm, previously 2.8 x 1.3 x 1.8 cm, volume of 3.4 mL. Nodule characteristics: Composition: Solid/almost completely solid (2). Echogenicity: Isoechoic (1). Shape: Not taller than wide (0). Margins: Ill-defined (0). Echogenic Foci: Punctate echogenic foci (3). ACR TI-RADS total points: 6, previously 6. ACR TI-RADS category: 4, previously 4. 2. Location: Right medial midpole. Size: 0.8 x 0.3 x 1.1 cm, volume 0.1 mm, previously 0.9 x 0.4 x 0.8 cm, volume 0.1 mL. Nodule characteristics: Composition: Solid/almost completely solid (2). Echogenicity: Isoechoic (1). Shape: Not taller than wide (0). Margins: Smooth (0). Echogenic Foci: None (0). ACR TI-RADS total points: 3, previously 3. ACR TI-RADS category: 3, previously 3. 3. Location: Left upper. Size: 1.1 x 0.8 x 1.0 cm, volume 0.5 mL, volume 1.6 x 1.2 x 1.0 cm, volume 1.0 mL mL. Nodule characteristics: Composition: Solid (2). Echogenicity: Isoechoic (1). Shape: Not taller than wide (0). Margins: Ill-defined (0). Echogenic Foci: Punctate echogenic foci (3). ACR TI-RADS total points: 6, previously 9. ACR TI-RADS category: 4, previously 5. 4. Location: Left mid. Size: 1.3 x 0.8 x 1.1 cm, volume 0.6 mm, previously 1.5 x 0.9 x 0.9 cm, volume 0.6 mL. Nodule characteristics: Composition: Solid/almost completely solid (2). Echogenicity: Isoechoic (1). Shape: Not taller than wide (0). Margins: Ill-defined (0). Echogenic Foci: Punctate echogenic foci (3). ACR TI-RADS total points: 6, previously 6. ACR TI-RADS category: 4, previously 4. 5. Location: Left lower. Size: 1.7 x 0.9 x 1.4 cm, volume 1.1 mL, previously 1.4 x 0.8 x 1.2 cm, volume 0.7 mL Nodule characteristics: Composition: Solid/almost completely solid (2). Echogenicity: Isoechoic (1). Shape: Not taller than wide (0). Margins: Smooth (0). Echogenic Foci: None (0). ACR TI-RADS total points: 3, previously 3. ACR TI-RADS category: 3, previously 3. NODES: No lymphadenopathy is seen in the tissue surrounding the thyroid gland. US/US thyroid IMPRESSION: Multinodular thyroid gland. 2.7 cm right mid TR4 nodule meets criteria for biopsy. Fine-needle aspiration recommended if not already performed. Additional thyroid nodules as detailed above for which annual surveillance is recommended. BONE DENSITOMETRY 06/25 CLINICAL INDICATION: Hyperparathyroidism. COMPARISON: Previous BD dated 03/18/2022 and baseline BD dated 09/16/2018. TECHNIQUE: Using a [employer] DXA System (software version: 13.1) manufactured by [employer], dual-energy x-ray absorptiometry was performed of the lumbar spine, left hip, and left forearm radius 33%. The images are of good technical quality. Summary results are attached. FINDINGS: LEFT FEMUR, NECK: Current: BMD 0.634 g/cm2, Z-score -0.6, T-score -2.9, osteoporosis. Prior: BMD 0.623 g/cm2. Baseline: BMD 0.635 g/cm2. LEFT FEMUR, TOTAL: Current: BMD 0.570 g/cm2, Z-score -1.3, T-score -3.5, osteoporosis, 2.9% increase from previous, 1.2% increase from baseline (<5% change is not significant). Prior: BMD 0.554 g/cm2. Baseline: BMD 0.563 g/cm2. AP SPINE L1-L4: Current: BMD 0.855 g/cm2, Z-score -0.7, T-score -2.7, osteoporosis, 13.5% increase from previous, 8.4% increase from baseline (<5% change is not significant). Prior: BMD 0.753 g/cm2. Baseline: BMD 0.789 g/cm2. LEFT FOREARM RADIUS 33%: BMD 0.558 g/cm2, Z-score -0.7, T-score -3.6, osteoporosis, 6.5% increase from baseline (<5% change is not significant). Baseline: BMD 0.524 g/cm2. IDENTIFIED RISK FACTORS: Menopause, dementia, hyperparathyroidism. HISTORY OF FRACTURE: None listed. MEDICATIONS: Vitamin D. [facility] Medical History (Updated 10/07/24 @ 10:43 by Angelica Land MD) Loss of height Back pain Osteoporosis Multinodular goiter (nontoxic) Hyperparathyroidism Surgical History Hx of oral surgery History of back surgery Family History Father Diabetes Mother No problems noted. Social History Household Members: None Alcohol intake: never Patient Tobacco Use Status: Never used Tobacco Physical Exam Vital Signs: Last Vital Signs Pulse 64 10/07/24 09:42 BP 140/68 H 10/07/24 09:42 Assessment & Plan Assessment & Plan (1) Multinodular goiter (nontoxic): Code(s): E04.2 - Nontoxic multinodular goiter Category: Medical Plan: 84-year-old female with no family history of thyroid cancer, with no personal history of head or neck radiation who has had thyroid nodules at least since 2019. status post FNA of a left midpole nodule and right nodule 12/30/2018 with benign cytology. Recent thyroid ultrasound June 2024 showed stability in size of the nodules Plan: -repeat thyroid ultrasound June 2025 -ordered TSH, free T4. To be done today (2) Osteoporosis: Code(s): M81.0 - Age-related osteoporosis without current pathological fracture Category: Medical Qualifiers: Osteoporosis type: age-related Presence of current pathological fracture: without current pathological fracture Qualified Code(s): M81.0 - Age-related osteoporosis without current pathological fracture Plan: Patient with a history of primary hyperparathyroidism, status post left inferior parathyroidectomy in July [address] Eric Barth at [facility] who subsequently had resolution of hypercalcemia as well as normalization of her parathyroid hormone levels. She has been on Fosamax 70 mg weekly for over 5 years, however most recent bone density done in June 2024 still shows persistent osteoporosis with spine t score -2.7 ,13.7 %increase from 2022 in BMD , left femur nec k-2.9 and total femor -3.5 , 2.9 % increase from 2022 foraearm -3.6 , 6.5 % increase from baseline Unfortunately I do not think the Fosamax was stopped to allow for adequate bone accrual. She has had significant increase in bone density of the lumbar spine as well as the forearm, however bone density in the hip remained stable. Her urine NTX level is also low at 15. I will also check her CTX levels. If those are also consistent with suppressed resorption and given persistent osteoporosis I think I would like to take her off Fosamax over the next year to allow for more bone accrual subsequent to her parathyroidectomy. I will see her back in 6 weeks with these results. We will plan to stop the Fosamax and then repeat a bone density in 2 years, as well as keep an eye on bone resorption markers at 6 months and 1 year marietta. If she continues to have severe osteoporosis with T-scores at -3.5, I might plan to start her on Prolia. She has had history of colon cancer, though no radiation therapy with given prior history of cancer, might stay away from anabolic. She is also complaining of worsening back pain for the past year and she has lost 2 in of height, we will evaluate for fractures in the back she is also having significant pain on the right side of her hip and she did have a fall about a week. We will evaluate with the x-rays. Plan: -do bone resorption markers with CTX and bone alkaline phosphatase levels -continue vitamin-D 2000 units daily -she has minimal nutritional intake of calcium, advised about taking 2-3 servings of calcium daily - ordered x-rays of the thoracic, lumbar spine as well as right hip, follow up in 6 weeks to discuss results (3) Back pain: Code(s): M54.9 - Dorsalgia, unspecified Category: Medical Qualifiers: Back pain location: low back pain Chronicity: chronic Back pain laterality: right Sciatica presence: without sciatica Qualified Code(s): M54.50 - Low back pain, unspecified; G89.29 - Other chronic pain Plan: See above (4) Loss of height: Code(s): R29.890 - Loss of height Category: Medical Plan: See above Plan I spent 40 minutes in reviewing the record, seeing the patient and documenting in the medical record. Orders: Orders Albumin Level Today E04.2 - Nontoxic multinodular goiter, M81.0 - Age-related osteoporosis without current pathological fracture Free T4 (Free Thyroxine) Today E04.2 - Nontoxic multinodular goiter, M81.0 - Age-related osteoporosis without current pathological fracture Vitamin D 25-OH Total Today E04.2 - Nontoxic multinodular goiter, M81.0 - Age-related osteoporosis without current pathological fracture Basic Metabolic Panel Today E04.2 - Nontoxic multinodular goiter, M81.0 - Age-related osteoporosis without current pathological fracture Parathyroid Hormone Intact Today E04.2 - Nontoxic multinodular goiter, M81.0 - Age-related osteoporosis without current pathological fracture XR thoracic spine 2V Today M54.9 - Dorsalgia, unspecified, M81.0 - Age-related osteoporosis without current pathological fracture, R29.890 - Loss of height XR lumbar spine 2-3V Today M54.9 - Dorsalgia, unspecified, M81.0 - Age-related osteoporosis without current pathological fracture, R29.890 - Loss of height US thyroid 06/12/25 E04.2 - Nontoxic multinodular goiter Collagen Type I C-Telopeptide Today E04.2 - Nontoxic multinodular goiter, M81.0 - Age-related osteoporosis without current pathological fracture Calcium Today E04.2 - Nontoxic multinodular goiter, M81.0 - Age-related osteoporosis without current pathological fracture TSH reflex Free T4 Today E04.2 - Nontoxic multinodular goiter, M81.0 - Age-related osteoporosis without current pathological fracture Alkaline Phosphatase Bone Today E04.2 - Nontoxic multinodular goiter, M81.0 - Age-related osteoporosis without current pathological fracture Calcium, Ionized Today E04.2 - Nontoxic multinodular goiter, M81.0 - Age-related osteoporosis without current pathological fracture XR hip RT min 2V Today M54.9 - Dorsalgia, unspecified, M81.0 - Age-related osteoporosis without current pathological fracture, R29.890 - Loss of height Patient Instructions: Do blood work today Do Xrays , someone will call you to schedule this Follow up in 6 weeks to discuss results Continue fosamax 70 mg weekly Continue vitamin D 2000 units daily Incorporate at least 2-3 servings of calcium rich foods in diet , milk, cheese , yogurt Coding Level of Care Code Est Pt Level 5 (08147) Diagnoses Multinodular goiter (nontoxic) E04.2 Age-related osteoporosis without current pathological fracture M81.0 Osteoporosis type: age-related Presence of current pathological fracture: without current pathological fracture Chronic right-sided low back pain without sciatica M54.50; G89.29 Back pain location: low back pain Chronicity: chronic Back pain laterality: right Sciatica presence: without sciatica Loss of height R29.890 Time Spent (min) 40
[2024-10-07 09:42] VITALS: BP 140/68; PULSE 64
== END 2024-10-07 10:32 | disposition home or self-care (01) ==
PROVIDERS: PCP Internal Medicine; Visit Provider Student in an Organized Health Care Education/Training Program
DX: E04.2 Nontoxic multinodular goiter (principal); M81.0 Age-related osteoporosis without current pathological fracture; M54.50 Low back pain, unspecified; G89.29 Other chronic pain
CPT/HCPCS: 99215

== ENCOUNTER 2024-10-08 08:34 | Outpatient (REF) | payer MEDICARE, SELFPAY ==
[2024-10-08 10:36] LABS: Calcium 9.6 mg/dL (8.4-10.2)
[2024-10-12 13:29] LABS: Collagen Type I C-Telopeptide 142 pg/mL (see note)
== END 2024-10-08 08:35 | disposition home or self-care (01) ==
LOC: HO.XRAY 08:34
PROVIDERS: Visit Provider Student in an Organized Health Care Education/Training Program
DX: M81.0 Age-related osteoporosis without current pathological fracture (principal); E04.2 Nontoxic multinodular goiter; M54.9 Dorsalgia, unspecified
CPT/HCPCS: 36415; 72070; 72100; 73502; 82310; 82523

== ENCOUNTER → 2024-12-02 09:45 | Outpatient (BNVA) | payer MEDICARE, SELFPAY | PROVIDERS: PCP Internal Medicine; Visit Provider Student in an Organized Health Care Education/Training Program | DX: M81.0 Age-related osteoporosis without current pathological fracture (principal); M54.50 Low back pain, unspecified; E04.2 Nontoxic multinodular goiter; G89.29 Other chronic pain | CPT/HCPCS: 99212 ==

== ENCOUNTER 2025-05-31 10:10 | Outpatient (REF) | payer MEDICARE, SELFPAY ==
--- NOTE | ~2025-05-31 | US_ITS ---
EXAMINATION: US THYROID HISTORY: E04.2 - Nontoxic multinodular goiter TECHNIQUE: Real-time grayscale ultrasound imaging was performed and images were reviewed. COMPARISON: Comparison is made with the prior examination dated 06/23/2024. FINDINGS: SIZE: The right thyroid lobe measures 5.3 x 1.7 x 2.2 cm. The left thyroid lobe measures 4.4 x 1.9 x 1.9 cm. The isthmus measures 3 mm. FLOW: Flow to the gland is increased. ECHOGENICITY: The echotexture of the gland is heterogeneous. NODULES: Multiple bilateral thyroid nodules are identified as described below: Nodule #: 1 Location: Midportion of the right thyroid lobe measuring 2.7 x 1.3 x 1.8 cm (previously 2.7 x 1.4 x 1.9 cm). Shape: Wider than tall (0 points) Margins: Smooth (0 points) Echotexture: Isoechoic (1 point) Composition: Mixed (1 point) Calcifications: Punctate calcifications (3 points) Total points: 5 TIRADS: TR4: Moderately suspicious. Nodule #: 2 Location: Mid to lower pole of the right thyroid lobe measuring 1.0 x 0.4 x 1.0 cm (previously 0.8 x 0.3 x 1.1 cm). Shape: Wider than tall (0 points) Margins: Smooth (0 points) Echotexture: Isoechoic (1 point) Composition: Mixed (1 point) Calcifications: Punctate calcifications (3 points) Total points: 5 TIRADS: TR4: Moderately suspicious. Nodule #: 3 Location: Upper pole of the left thyroid lobe measuring 1.7 x 1.1 x 1.2 cm (previously 1.0 x 0.8 x 1.3 cm). Shape: Wider than tall (0 points) Margins: Smooth (0 points) Echotexture: Isoechoic (1 point) Composition: Solid (2 points) Calcifications: None (0 points) Total points: 3 TIRADS: TR3: Mildly suspicious. Nodule #: 4 Location: Midportion of the left thyroid lobe measuring 2.1 x 1.0 x 1.6 cm (previously 0.7 x 0.9 x 1.4 cm). Shape: Wider than tall (0 points) Margins: Smooth (0 points) Echotexture: Isoechoic (1 point) Composition: Solid (2 points) Calcifications: None (0 points) Total points: 3 TIRADS: TR3: Mildly suspicious. Nodule #: 5 Location: Lower pole of the left thyroid lobe measuring 0.9 x 0.5 x 1.0 cm (not seen previously). Shape: Wider than tall (0 points) Margins: Smooth (0 points) Echotexture: Isoechoic (1 point) Composition: Mixed (1 point) Calcifications: None (0 points) Total points: 2 TIRADS: TR2: Not suspicious US/US thyroid IMPRESSION: Multinodular thyroid gland. Nodule #1 above in the midportion of the right thyroid lobe meets ACR TI-RADS guidelines for ultrasound-guided fine-needle aspiration if this has not already been performed. The remaining nodules can be followed. ACR TI-RADS Guidelines TR1 (0 points): Benign. No follow-up or biopsy required TR2 (2 points): Not Suspicious. No biopsy or follow up indicated TR3 (3 points): Mildly Suspicious. FNA if >= 2.5 cm, Follow if >= 1.5 cm TR4 (4-6 points): Moderately Suspicious. FNA if >= 1.5 cm, Follow if >= 1.0 cm TR5 (>=7 points): Highly Suspicious. FNA if >= 1.0 cm, Follow if >= 0.5 cm Electronically signed by: Lamin Mesa MD 05/31/2025 11:31 AM EDT
--- OUTSIDE RECORDS SUMMARY | 2025-05-31 11:00 | XMS_ITS | Encounter Summary ---
Author Organization [facility] Address [address] [place] [address] Phone Care Team Providers Care Threading Machine Tender Name Role Phone Jodie Holden MD Primary Care Pro vider Milton Houser MD Primary Care Provider [phone] Encounter Details Date Type Department Care Team (Late st Contact Info) Description 05/20/2022 Procedure Pass [facility] Associate Artistic Director Center [address] [address] [place] [address] Social History Tobacco Use Types Packs/Day Years Used Date Smoking Tobacco: Never Smokeless Tobacco: Never Alcohol Use Standard Drinks/Week Comments Never 0 (1 standard drink = 0.6 oz pur e alcohol) Comments Unknown Sex and Gender Information Value Date Recorded Sex Assigned at Not on file Legal Sex Female 2:48 PM EST Gender Identity Not on file Sexual Orientation Not on file documented as of this encounter Plan of Treatment Upcoming Encounters Date Type Department Care Team (Late st Contact Info) Description 06/13/2025 1:30 PM EDT Procedure visit [facility] [address] [place] [address] Gonzales Chappell MD, PhD [address] [facility] [place] [address] [email or web address] 06/29/2025 11:30 AM EDT Office Visit [facility] Department of Neurology [address] [place] [address] Mook Delgadillo PA-C [address] [place] [address] [email or web address] documented as of this encounter Visit Diagnoses Not on filedocumented in this encounter Care Teams Threading Machine Tender Relationship Specialty Start Date End Date Jodie Holden MD [address] [place] [address] PCP - General Internal Medicine 11/11/19 10/20/23 Milton Houser MD [address] [place] [id number] PCP - General Internal Medicine 10/21/23 documented as of this encounter Additional Source Comments The information contained in this document represents components of the legal health record. It is not the complete legal health record.[facility]
--- OUTSIDE RECORDS SUMMARY | 2025-05-31 11:00 | XMS_ITS | Clinical Summary ---
Author Organization [facility] [address] [facility] Building Address [address] [place] [address] Phone Care Team Providers Care Machine Hoop Maker Helper Name Role Phone Milton Houser MD Primary Care Provider [phone] Allergies No known active allergies Medications donepeziL (ARICEPT) 10 mg tablet Take 1 tablet (10 mg total) by mouth at bedtime. 02/26/20 23 Active loratadine (CLARITIN) 10 mg tablet Take 1 Tab by mouth daily as needed for Allergies (or ear symptoms) for up to 360 days. 01/16/20 20 Active UNABLE TO FIND Misc. 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 LOSS PREVENTION OPERATIONS MANAGER) Misc 1 Units by Does not apply route See Admin Instructions. Use to exercise legs twice daily for leg strengthening 12/08/19 19 Active memantine (NAMENDA) 10 mg tablet Take 1 tablet (10 mg total) by mouth 1 (one) time each day. 08/19/20 24 Active cholecalciferol (VITAMIN D-3) 25 mcg (1,000 unit) tablet TAKE 1 TABLET BY MOUTH TWICE A DAY 180 tablet 1 12/12/19 25 Active amLODIPine (NORVASC) 5 mg tabletIndication s:Primary hypertension TAKE 1 TABLET BY MOUTH 1 TIME EACH DAY. 90 tablet 1 02/28/20 25 Active atorvastatin (LIPITOR) 10 mg tabletIndication s:Hypercholester olemia TAKE 1 TABLET BY MOUTH 1 TIME EACH DAY. 90 tablet 1 02/28/20 25 Active Active Problems Problem Noted Date Diagnosed Date Postmenopausal bleeding 04/12/2025 Alzheimer's disease ([facility] V24, [facility] V28) 0 12/05/2024 History of colon cancer 10/11/2024 Assessment & Plan (04/27/2025 10:29 AM EDT): Pt declines further colonoscopies due to age Hx of parathyroidectomy 12/15/2022 Dermatochalasis of both eyelids 02/14/2021 Overview (08/05/2024): Skin overhanging upper lashes, visual field testing showing significant blockage, but patient declined to proceed with surgery; evaluated with Dr. Hilario at [facility] 02/14/2021 Insomnia 12/25/2019 Right knee pain 08/30/2017 Hyperparathyroidism ([facility] V24) 02/19/2017 Overview (08/05/2024): [facility], Dr. Kami Alan, declined surgical management Ongoing hypercalcemia and bone loss on sensipar and alendronate, has declined surgical management Vitamin D deficiency 10/29/2016 Overview (08/05/2024): PTH elevated Stable on 2000 IUs daily Hypertension 07/18/2016 Chronic gastritis 07/03/2016 Overview (08/05/2024): Upper endoscopy 2015 Hypercalcemia 06/11/2015 Iron deficiency anemia 06/11/2015 Mixed hyperlipidemia 06/11/2015 Osteoporosis 06/11/2015 Encounters Date Type Department Care Team Description 04/27/2025 10:10 AM EDT Consult Gastroenterology - [address] [place] [phone] Janneth Vaz, MIHIR Pain at surgical incision (Primary Dx); History of colon cancer 04/03/2025 Telephone Gastroenterology - [address] [place] [phone] Josh Vega MD 03/22/2025 9:30 AM EDT Office Visit [facility] - [facility] [address] [facility] [place] [phone] Malena Roberts NP Primary hypertension (Primary Dx); Mixed hyperlipidemia; Hyperparathyroidism ([facility] V24); Osteoporosis, unspecified osteoporosis type, unspecified pathological fracture presence; Iron deficiency anemia, unspecified iron deficiency anemia type; 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 ([facility] V24, [facility] V28); History of colon cancer from Last 3 Months Immunizations Name Administration Dates Next Due Influenza, Unspecified 09/18/2024 Pneumococcal conjugate 20 va lent (Prevnar 20, PCV 20) 2mo and older 03/21/2024 Surgical History Surgery Date Site/Laterality Comments OTHER SURGICAL HISTORY PROCEDURE: MAMMOGRAM UPPER GASTROINTESTINAL ENDOSCOPY 2015 PROCEDURE: UPPER GI ENDOSCOPY/EXAM COLONOSCOPY 12/21/2015 PROCEDURE: HISTORICAL COLONOSCOPY; COMMENT: repeat surveillance 07/15/17 [facility] 01/15/16 PROCEDURE: HISTORICAL BOWEL RESECTION; COMMENT: R hemicolectomy / adenocarcinoma Medical History Medical History Date Comments Mixed hyperlipidemia 06/11/2015 DX:Mixed hy perlipidemia Osteoporosis 06/11/2015 DX:Osteoporosis Hypercalcemia 06/11/2015 DX:Hypercalcemia Chronic gastritis 07/03/2016 DX:Chronic gas tritis; COMMENT: Upper endoscopy 2015 Colon cancer ([facility] V24, [facility] V28) 07/03/2016 DX:Colon cancer ([facility]); COMME NT: S/P right hemicolectomy 01/15/16 Iron deficiency anemia 06/11/2015 DX:Iron d eficiency anemia Family History Medical History Relation Name Comments Coronary artery disease Father HTN, Diabetes, age 75 Diabetes Sister 1 elevated choles terol Relation Name Status Comments Father Sister 1 Sister 2 Social History Tobacco Use Types Packs/Day Years Used Date Smoking Tobacco: Never Smokeless Tobacco: Never Tobacco Cessation:Counseling Given: Not Answered Alcohol Use Standard Drinks/Week Comments No 0 (1 standard drink = 0.6 oz pur e alcohol) Comments No Sex and Gender Information Value Date Recorded Sex Assigned at Female 11/22/2024 9:00 AM EST Legal Sex Female 10:31 PM EST Gender Identity Female 11/22/2024 9:00 AM EST Sexual Orientation Straight 11/22/2024 9: 00 AM EST Obstetrics History Last Filed Vital Signs Vital Sign Reading Time Taken Comments Blood Pressure 124/62 03/22/2025 9:33 AM EDT Pulse 66 03/22/2025 9:33 AM EDT Temperature - - Respiratory Rate - - Oxygen Saturation - - Inhaled Oxygen Concentration - - Weight 64.9 kg (143 lb) 04/27/2025 10:14 AM EDT Height 162.6 cm (5' 4 ) 04/27/2025 10:14 AM EDT Body Mass Index 24.55 04/27/2025 10:14 AM EDT Plan of Treatment Upcoming Encounters Date Type Department Care Team (Late st Contact Info) Description 07/24/2025 8:30 AM EDT Office Visit Internal Medicine - [address] [phone] Malena Roberts NP [address] [place] [id number] Health Maintenance Due Date Last Done Comments Hepatitis A Vaccines (1 of 2 - Risk 2-dose series) 1959 Zoster Vaccines (1 of 2) 1959 RSV Immunization Adult Patients (1 - 1-dose 75+ series) 2017 Falls Risk Assessment 10/11/2022 Medicare Annual Wellness Visit 10/11/2022 Social Influencers of Health Screening 10/11/2022 COVID-19 Vaccine ( season) 2024 04/17/2023, 08/18/2022, 12/09/2020, Additional history exists Depression Screening 11/02/2024 Influenza Vaccine (#1) 2025 09/18/2024, 2022 Colorectal Cancer Screening: Colonoscopy 08/09/2025 08/09/2020 Hypertension/CHF/CAD Annual BMP Blood Test 09/20/2025 09/20/2024, 06/29/2023 Cholesterol Screening (Lipid Panel) 09/20/2029 09/20/2024, 06/29/2023 Osteoporosis Screening (Bone Density Screening) 08/15/2031 08/15/2021 Pneumococcal Vaccine: 50+ Years Completed 03/21/2024 DTaP,Tdap,and Td Vaccines Discontinued HIB Vaccines Aged Out No longer eligi ble based on patient's age to complete this topic HPV Vaccines Aged Out No longer eligi ble based on patient's age to complete this topic Hepatitis B Vaccines Aged Out No long er eligible based on patient's age to complete this topic IPV Vaccines Aged Out No longer eligi ble based on patient's age to complete this topic MMR Vaccines Aged Out No longer eligi ble based on patient's age to complete this topic Meningococcal ACWY Vaccine Aged Out N o longer eligible based on patient's age to complete this topic Meningococcal B Vaccine Aged Out No l onger eligible based on patient's age to complete this topic RSV Immunization Patients Under 20 months Aged Out No longer eligible based on patient's age to complete this topic Varicella Vaccines Aged Out No longer eligible based on patient's age to complete this topic Procedures Procedure Name Priority Date/Time Associated Diagnosis Comments COMPREHENSIVE METABOLIC PANEL Routine 09/20/2024 9:05 AM EST Hypercholesterolemia LIPID PANEL WITH REFLEX TO DIRECT LDL Routine 09/20/2024 9:05 AM EST Hypercholesterolemia DXA BONE DENSITY STUDY 1+ SITS AXIAL SKEL Routine 08/15/2021 2:23 PM EDT Unspecified menopausal and perimenopausal disorder HM COLONOSCOPY Routine 08/09/2020 from Last 3 Months or Most Recently Relevant to Health Maintenance Results * Lipid panel with reflex to direct LDL (09/20/2024 9:05 AM EST) Cholesterol 157 0 - 200 mg/dL LAB CHEMISTRY METHOD 09/20/2024 12:18 PM [facility] Triglycerides 74 0 - 150 mg/dL LAB CHEMISTRY METHOD 09/20/2024 12:18 PM [facility] HDL 61 >=40 mg/dL LAB CHEMISTRY METHOD 09/20/2024 12:18 PM [facility] LDL Calculated 81 0 - 100 mg/dL LAB CHEMISTRY METHOD 09/20/2024 12:18 PM [facility] VLDL Cholesterol Rafal 14.8 mg/dL LAB CHEMISTRY METHOD 09/20/2024 12:18 PM [facility] Non HDL Chol. (LDL+VLDL) 96 <145 mg/dL LAB CHEMISTRY METHOD 09/20/2024 12:18 PM [facility] Chol/HDL Ratio 2.6 0.0 - 4.4 LAB CHEMISTRY METHOD 09/20/2024 12:18 PM [facility] Blood Venous blood specimen / Unknown Venipuncture / Unknown 09/20/2024 9:05 AM EST 09/20/2024 9:05 AM EST us Malena Roberts NP LAB BLOOD ORDERABLES Final Resul t [facility] [address] [place] [address], [place] [phone] * (ABNORMAL) Comprehensive metabolic panel (09/20/2024 9:05 AM EST) Sodium 145 133 - 145 mmol/L LAB CHEMISTRY METHOD 09/20/2024 12:18 PM [facility] Potassium 4.1 3.5 - 5.5 mmol/L LAB CHEMISTRY METHOD 09/20/2024 12:18 PM [facility] Chloride 110 96 - 110 mmol/L LAB CHEMISTRY METHOD 09/20/2024 12:18 PM [facility] CO2 28 21 - 32 mmol/L LAB CHEMISTRY METHOD 09/20/2024 12:18 PM [facility] Anion Gap 7 3 - 11 LAB CHEMISTRY METHOD 09/20/2024 12:18 PM [facility] Glucose 88 70 - 100 mg/dL LAB CHEMISTRY METHOD 09/20/2024 12:18 PM [facility] BUN 16 5 - 25 mg/dL LAB CHEMISTRY METHOD 09/20/2024 12:18 PM [facility] Creatinine 1.04 0.50 - 1.10 mg/dL LAB CHEMISTRY METHOD 09/20/2024 12:18 PM [facility] eGFR 54(L) >=60 mL/min/1. 73m2 LAB CHEMISTRY METHOD 09/20/2024 12:18 PM [facility] Comment:Calculation based on the Chronic Kidney Disease Epidemiology Collaboration (CKD-EPI) equation refit without adjustment for race. BUN/Creatinine Ratio 15.4 LAB CHEMISTRY METHOD 09/20/2024 12:18 PM [facility] Calcium 9.2 8.5 - 10.5 mg/dL LAB CHEMISTRY METHOD 09/20/2024 12:18 PM [facility] AST (SGOT) 18 10 - 42 unit/L LAB CHEMISTRY METHOD 09/20/2024 12:18 PM [facility] ALT (SGPT) 14 10 - 60 unit/L LAB CHEMISTRY METHOD 09/20/2024 12:18 PM [facility] Alkaline Phosphatase 61 42 - 121 unit/L LAB CHEMISTRY METHOD 09/20/2024 12:18 PM [facility] Total Protein 6.1 6.0 - 8.0 g/dL LAB CHEMISTRY METHOD 09/20/2024 12:18 PM [facility] Albumin 3.1(L) 3.2 - 5.0 g/dL LAB CHEMISTRY METHOD 09/20/2024 12:18 PM [facility] Total Bilirubin 0.5 0.0 - 1.4 mg/dL LAB CHEMISTRY METHOD 09/20/2024 12:18 PM [facility] Blood Venous blood specimen / Unknown Venipuncture / Unknown 09/20/2024 9:05 AM EST 09/20/2024 9:05 AM EST us Malena Roberts NP LAB BLOOD ORDERABLES Final Resul t [facility] [address] [place] [address], * DXA BONE DENSITY STUDY 1+ SITS AXIAL SKEL (08/15/2021 2:23 PM EDT) Anatomical Region Laterality Modality Bone Densitometr y 04/04/2021 3:29 PM EDT Narrative 08/15/2021 6:17 PM EDT BONE DENSITY Lumbar Spine T-score is -3.4 (SD relative to 20-29 y/o adult) Z-score is -0.7 (SD relative to age matched peers) This is consistent with osteoporosis by criteria defined by the WHO. Left Hip T-score is -3.6 Z-score is -1.3 This is consistent with osteoporosis by criteria defined by the WHO. Comparison exam(s): significant increase in bone density of lumbar spine when compared to most recent bone density examination Confidence level is +/-95%. Impression: Based on the World Health Organization criteria, Pamela Bustamante should be classified as having osteoporosis. The [facility] Department of Internal Medicine recommends using National Osteoporosis Foundation (NOF) guidelines in treatment decisions related to osteoporosis. NOF guidelines suggest considering treatment for postmenopausal women and men aged 50 or older presenting with the following: History of hip or vertebral fracture. T-score less than or equal to -2.5 (DXA) at the femoral neck, total hip, or spine, after appropriate evaluation to exclude secondary causes. Low bone mass (T-score between -1.0 and -2.5 at the femoral neck or spine) AND a 10-year probability of a hip fracture greater than or equal to 3% OR a 10-year probability of a major osteoporosis-related fracture greater than or equal to 20% based on the [place]-adapted WHO algorithm Please note that all treatment decisions require clinical judgment and consideration of individual patient factors, including patient preferences, co-morbidities, previous drug use, risk factors not captured in the FRAX model (e.g., frailty, falls, vitamin D deficiency, increased bone turnover, interval significant decline in bone density) and possible under- or over-estimation of fracture risk by FRAX. Procedure Note Sania Gomez MD - 10/21/2022 BONE DENSITY Lumbar Spine T-score is -3.4 (SD relative to 20-29 y/o adult) Z-score is -0.7 (SD relative to age matched peers) This is consistent with osteoporosis by criteria defined by the WHO. Left Hip T-score is -3.6 Z-score is -1.3 This is consistent with osteoporosis by criteria defined by the WHO. Comparison exam(s): significant increase in bone density of lumbar spinewhen compared to most recent bone density examination Confidence level is +/-95%. Impression: Based on the World Health Organization criteria, Pamela Bustamante should beclassified as having osteoporosis. The [facility] Department of Internal Medicine recommendsusing National Osteoporosis Foundation (NOF) guidelines in treatmentdecisions related to osteoporosis. NOF guidelines suggest consideringtreatment for postmenopausal women and men aged 50 or older presentingwith the following: History of hip or vertebral fracture. T-score less than or equal to -2.5 (DXA) at the femoral neck, total hip,or spine, after appropriate evaluation to exclude secondary causes. Low bone mass (T-score between -1.0 and -2.5 at the femoral neck or spine)AND a 10-year probability of a hip fracture greater than or equal to 3% ORa 10-year probability of a major osteoporosis-related fracture greaterthan or equal to 20% based on the [place]-adapted WHO algorithm Please note that all treatment decisions require clinical judgment andconsideration of individual patient factors, including patientpreferences, co-morbidities, previous drug use, risk factors not capturedin the FRAX model (e.g., frailty, falls, vitamin D deficiency, increasedbone turnover, interval significant decline in bone density) and possibleunder- or over-estimation of fracture risk by FRAX. Alfredito VALDES IMG DXA PROCEDURES Final Result * Colonoscopy (08/09/2020) [facility] Colonoscopy no interpretation , abstracted Anatomical Region Laterality Modality Other Historical Provider HEALTH MAINTENANCE Final Result from Last 3 Months or Most Recently Relevant to Health Maintenance Insurance MEDICAID - [place] [employer] MEDICARE Care Teams Machine Hoop Maker Helper Relationship Specialty Start Date End Date Milton Houser MD [address] [place] [id number] PCP - General Internal Medicine 09/14/24
[2025-05-31 12:38] LABS: Albumin Level 4.3 g/dL (3.5-5.0); Calcium 9.6 mg/dL (8.4-10.2); Magnesium 2.3 mg/dL (1.6-2.6)
[2025-05-31 13:51] LABS: Parathyroid Hormone Intact 37.0 pg/mL (8.7-77.1)
[2025-06-01 20:08] LABS: Calcium, Ionized 5.4 mg/dL (4.7-5.5)
[2025-06-02 22:39] LABS: Prot Elec - Albumin 4.0 g/dL (3.8-4.8); Prot Elec - Alpha1 0.3 g/dL (0.2-0.3); Prot Elec - Alpha2 0.8 g/dL (0.5-0.9); Prot Elec - Beta 1 0.4 g/dL (0.4-0.6); Prot Elec - Beta 2 0.3 g/dL (0.2-0.5); Prot Elec - Gamma 1.1 g/dL (0.8-1.7); Prot Elec - Total Protein 6.9 g/dL (6.1-8.1)
== END 2025-05-31 10:11 | disposition home or self-care (01) ==
LOC: HO.US 10:10
PROVIDERS: PCP Internal Medicine; Visit Provider Student in an Organized Health Care Education/Training Program
DX: M81.0 Age-related osteoporosis without current pathological fracture (principal); E04.2 Nontoxic multinodular goiter
CPT/HCPCS: 36415; 76536; 82040; 82306; 82310; 82330; 82784; 83735; 83970; 84075; 84100; 84165; 84443; 86334

== ENCOUNTER → 2025-05-31 10:40 | Outpatient (BNV) | payer MEDICARE, SELFPAY | PROVIDERS: PCP Internal Medicine; Visit Provider Radiology Diagnostic Radiology | DX: E04.2 Nontoxic multinodular goiter (principal) | CPT/HCPCS: 76536 ==

== ENCOUNTER 2025-06-02 08:01 | Outpatient (REF) | payer MEDICARE, SELFPAY ==
--- OUTSIDE RECORDS SUMMARY | 2025-06-02 08:05 | XMS_ITS | Encounter Summary ---
Author Organization [facility] Address [address] [place] [address] Phone Care Team Providers Care Improvement Intern Name Role Phone Jodie Holden MD Primary Care Pro vider Milton Houser MD Primary Care Provider [phone] Encounter Details Date Type Department Care Team (Late st Contact Info) Description 05/20/2022 Procedure Pass [facility] [address] [place] [address] Social History Tobacco Use Types Packs/Day Years [...] Description 06/13/2025 1:30 PM EDT Procedure visit [facility] [address] [place] [address] Gonzales Chappell MD, PhD [address] [facility] [place] [address] [email or web address] 06/29/2025 11:30 AM EDT Office Visit [facility] Department of Neurology [address] [place] [address] Mook Delgadillo PA-C [address] [place] [address] [email or web address] documented as of this encounter Visit Diagnoses Not on filedocumented in this encounter Care Teams Improvement Intern Relationship Specialty Start Date End Date Jodie Holden MD [address] [place] [address] PCP - General Internal Medicine 11/11/19 10/20/23 Milton Houser MD [address] [place] [id number] PCP - General Internal Medicine 10/21/23 documented as of this encounter Additional Source Comments The information contained in this document represents components of the legal health record. It is not the complete legal health record.[facility]
--- OUTSIDE RECORDS SUMMARY | 2025-06-02 08:06 | XMS_ITS | Clinical Summary ---
Author Organization [facility] [address] [facility] Building Address [address] [place] [address] Phone Care Team Providers Care De Icer Installer Name Role Phone Milton Houser MD Primary Care Provider [phone] Allergies No known active allergies Medications donepeziL (ARICEPT) 10 mg tablet Take 1 tablet (10 mg total) by mouth at bedtime. 02/26/20 23 Active loratadine (CLARITIN) 10 mg tablet Take 1 Tab by mouth daily as needed for Allergies (or ear symptoms) for up to 360 days. 01/16/20 20 Active UNABLE TO FIND Misc. 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 SPECIALIST) Misc 1 Units by Does not apply [...] Diagnosed Date Postmenopausal bleeding 04/12/2025 Alzheimer's disease ([facility] V24, [facility] V28) 0 12/05/2024 History of colon cancer 10/11/2024 Assessment & Plan (04/27/2025 10:29 AM EDT): Pt declines further colonoscopies due to age Hx of parathyroidectomy 12/15/2022 Dermatochalasis of both eyelids 02/14/2021 Overview (08/05/2024): Skin overhanging upper lashes, visual field testing showing significant blockage, but patient declined to proceed with surgery; evaluated with Dr. Hilario at [facility] 02/14/2021 Insomnia 12/25/2019 Right knee pain 08/30/2017 Hyperparathyroidism ([facility] V24) 02/19/2017 Overview (08/05/2024): [facility], Dr. Kami Alan, declined surgical [...] EDT Consult Gastroenterology - [address] [facility] [address] [place] [phone] Janneth Vaz, MIHIR Pain at surgical incision (Primary Dx); History of colon cancer 04/03/2025 Telephone Gastroenterology - [address] [place] [phone] Josh Vega MD 03/22/2025 9:30 AM EDT Office Visit Internal Medicine - [facility] [address] [facility] [place] [address] Malena Roberts NP Primary hypertension (Primary Dx); Mixed hyperlipidemia; Hyperparathyroidism ([facility] V24); Osteoporosis, unspecified osteoporosis type, unspecified pathological fracture presence; Iron deficiency anemia, unspecified iron deficiency anemia type; 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 ([facility] V24, [facility] V28); History of colon cancer from [...] tritis; COMMENT: Upper endoscopy 2015 Colon cancer ([facility] V24, [facility] V28) 07/03/2016 DX:Colon cancer ([facility]); COMME NT: S/P right hemicolectomy 01/15/16 [...] AM EDT Office Visit Internal Medicine - [address] [phone] Malena Roberts NP [address] [place] [id number] Health Maintenance Due Date Last Done Comments [...] Procedure Name Priority Date/Time Associated Diagnosis Comments EXTERNAL ULTRASOUND REPORT 05/31/2025 COMPREHENSIVE METABOLIC PANEL Routine 09/20/2024 9:05 AM EST Hypercholesterolemia LIPID PANEL WITH REFLEX TO DIRECT LDL Routine 09/20/2024 9:05 AM EST Hypercholesterolemia DXA BONE DENSITY STUDY 1+ SITS AXIAL SKEL Routine 08/15/2021 2:23 PM EDT Unspecified menopausal and perimenopausal disorder HM COLONOSCOPY Routine 08/09/2020 from Last 3 Months or Most Recently Relevant to Health Maintenance Results * External Ultrasound Report (05/31/2025) Anatomical Region Laterality Modality Ultrasound [facility] PROCEDURES Final Result * Lipid panel with reflex to direct LDL (09/20/2024 9:05 AM EST) Cholesterol 157 0 - 200 mg/dL LAB CHEMISTRY METHOD 09/20/2024 12:18 PM EST [facility] Triglycerides 74 0 - 150 mg/dL LAB CHEMISTRY METHOD 09/20/2024 12:18 PM EST [facility] HDL 61 >=40 mg/dL LAB CHEMISTRY METHOD 09/20/2024 12:18 PM EST [facility] LDL Calculated 81 0 - 100 mg/dL LAB CHEMISTRY METHOD 09/20/2024 12:18 PM [facility] VLDL Cholesterol Rafal 14.8 mg/dL LAB CHEMISTRY METHOD 09/20/2024 12:18 PM [facility] Non HDL Chol. (LDL+VLDL) 96 <145 mg/dL LAB CHEMISTRY METHOD 09/20/2024 12:18 PM [facility] Chol/HDL Ratio 2.6 0.0 - 4.4 LAB CHEMISTRY METHOD 09/20/2024 12:18 PM [facility] Blood Venous blood specimen / Unknown Venipuncture / Unknown 09/20/2024 9:05 AM EST 09/20/2024 9:05 AM EST us Malena Roberts NP LAB BLOOD ORDERABLES Final Resul t [facility] [address] [place] [address], * (ABNORMAL) Comprehensive metabolic panel (09/20/2024 9:05 AM EST) Sodium 145 133 - 145 mmol/L LAB CHEMISTRY METHOD 09/20/2024 12:18 PM [facility] Potassium 4.1 3.5 - 5.5 mmol/L LAB CHEMISTRY METHOD 09/20/2024 12:18 PM [facility] Chloride 110 96 - 110 mmol/L LAB CHEMISTRY METHOD 09/20/2024 12:18 PM [facility] CO2 28 21 - 32 mmol/L LAB CHEMISTRY METHOD 09/20/2024 12:18 PM [facility] Anion Gap 7 3 - 11 LAB CHEMISTRY METHOD 09/20/2024 12:18 PM [facility] Glucose 88 70 - 100 mg/dL LAB CHEMISTRY METHOD 09/20/2024 12:18 PM [facility] BUN 16 5 - 25 mg/dL LAB CHEMISTRY METHOD 09/20/2024 12:18 PM [facility] Creatinine 1.04 0.50 - 1.10 mg/dL LAB CHEMISTRY METHOD 09/20/2024 12:18 PM [facility] eGFR 54(L) >=60 mL/min/1. 73m2 LAB CHEMISTRY METHOD 09/20/2024 12:18 PM [facility] Comment:Calculation based on the Chronic Kidney Disease Epidemiology Collaboration (CKD-EPI) equation refit without adjustment for race. BUN/Creatinine Ratio 15.4 LAB CHEMISTRY METHOD 09/20/2024 12:18 PM [facility] Calcium 9.2 8.5 - 10.5 mg/dL LAB CHEMISTRY METHOD 09/20/2024 12:18 PM [facility] AST (SGOT) 18 10 - 42 unit/L LAB CHEMISTRY METHOD 09/20/2024 12:18 PM [facility] ALT (SGPT) 14 10 - 60 unit/L LAB CHEMISTRY METHOD 09/20/2024 12:18 PM [facility] Alkaline Phosphatase 61 42 - 121 unit/L LAB CHEMISTRY METHOD 09/20/2024 12:18 PM [facility] Total Protein 6.1 6.0 - 8.0 g/dL LAB CHEMISTRY METHOD 09/20/2024 12:18 PM [facility] Albumin 3.1(L) 3.2 - 5.0 g/dL LAB CHEMISTRY METHOD 09/20/2024 12:18 PM [facility] Total Bilirubin 0.5 0.0 - 1.4 mg/dL LAB CHEMISTRY METHOD 09/20/2024 12:18 PM [facility] Blood Venous blood specimen / Unknown Venipuncture / Unknown 09/20/2024 9:05 AM EST 09/20/2024 9:05 AM EST us Malena Roberts NP LAB BLOOD ORDERABLES Final Resul t [facility] [address] [place] [address], * DXA BONE DENSITY STUDY 1+ SITS [...] should be classified as having osteoporosis. [facility] Department of Internal Medicine recommends using National [...] [place] should beclassified as having osteoporosis. [facility] Department of Internal Medicine recommendsusing National Osteoporosis [...] of fracture risk by FRAX. Alfredito VALDES IMRupinder DXA PROCEDURES Final Result * Colonoscopy (08/09/2020) [facility] Colonoscopy no interpretation , abstracted Anatomical Region Laterality Modality Other Historical Provider HEALTH MAINTENANCE Final Result from Last 3 Months or Most Recently Relevant to Health Maintenance Insurance MEDICAID - [place] [employer] MEDICARE Care Teams De Icer Installer Relationship Specialty Start Date End Date Milton Houser MD [address] [place] [id number] PCP - General Internal Medicine 09/14/24
[2025-06-02 09:55] LABS: Creatinine, mg/dL 35.39
[2025-06-02 10:30] LABS: Total Volume 24 Hour Urine 2675 mL
[2025-06-03 16:19] LABS: Calcium/Creatinine Ratio 84 mg/g creat (30-275); Creatinine 24Hr Urine 0.99 g/24 h (0.50-2.15)
[2025-06-05 22:19] LABS: Collagen Type I C-Telopeptide 92 pg/mL (see note)
== END 2025-06-02 08:02 | disposition home or self-care (01) ==
LOC: HO.LAB 08:01
PROVIDERS: PCP Internal Medicine; Visit Provider Student in an Organized Health Care Education/Training Program
DX: M81.0 Age-related osteoporosis without current pathological fracture (principal); E04.2 Nontoxic multinodular goiter
CPT/HCPCS: 36415; 82340; 82523; 82570

== ENCOUNTER 2025-06-19 10:16 | Outpatient (AMB) | payer MEDICARE, SELFPAY ==
--- NOTE | 2025-06-19 10:18 | A.OFFVIS_ITS ---
Vital Signs 06/19/25 10:19 Height 5 ft 3 in Weight 145 lb 8.081 oz BMI 25.8 BP 156/78 H Blood Pressure Location Lt brachial Position Sitting Pulse 65 Pulse Source Pulse Oximeter Pulse Oximetry (%) 94 Oxygen Delivery Method Room Air Intake Visit Reasons: Multinodular goiter Intake Note: Patient present today for Multinodular goiter office visit. General Education Professor Required: Yes General Education Professor Language: Slovenian - Traditional General Education Professor Services: General Education Professor Offered & Declined Accompanied by: Son Allergies No Known Allergies Allergy (Verified 06/19/25 10:23) Medication List - Last Reconciled 06/19/25 by Angelica Land MD amlodipine 2.5 mg PO DAILY atorvastatin 10 mg PO DAILY cholecalciferol (vitamin D3) 50 mcg PO DAILY donepezil 10 mg PO BEDTIME memantine 10 mg PO QPM HPI Comments Details: This is a 84-year-old Mandarin female with a history of primary hyperparathyrodism s/p right inferior parathyroidectomy and osteoporosis. Also follows for MNG. primary hyperparathyroidism osteoporosis s/p right inferior parathyroidectomy 07/2022, with Dr. Eric Marie at [facility] , intraop PTH dropped from 420 to 27 osteoporosis. on fosamax 70 mg weekly unclear on how long she has been on this but patient sons endorses at least been on it for the past 5 years s vitamin D3 2000 IU per day . No kidney stones in past. No fragility fx Dexa 06/25 spine t score -2.7 ,13.7 %increase from 202 in BMD , left femu nec k-2.9 and total femor -3.5 , 2.9 % increase from 2022 foraearm -3.6 6.5 % increase from baseline Lost 2 inches of height since 1 years Complaining of worsening back pain for the past 1 year HAd a recent fall as fell on knees last week, no known fractures She has all dentures Interval history 12/02/24 Labs 10/07/2024 showed CTX of 142, vitamin-D level 63.1, GFR 53, calcium 9.7, with albumin of 4.2, ionized calcium 5.2, bone specific alkaline phosphatase 11.1, PTH 53.3 X-rays of the spine, hip did not show any fracture. Interval history 06/19/25 Stopped Fosamax November 2024 Vitamin D 2000 units daily Calcium 300 mg BID tablet daily, no milk yogurt cheese No falls or fractures Labs from May 2025 showed normal protein electrophoresis, normal immunofixation, low 24 hour urine calcium levels, normal calcium, PTH, vitamin-D of 66. CTX 92, BSAP 11. MNG She also has a history of a multinodular goiter unclear year of diagnosis status post FNA of a left midpole nodule and right nodule 12/30/2018 with benign cytology. Recent thyroid ultrasound June 2024 showed stability in size of the nodules Denies compressive symptoms No hypo/hyperthyroid symptoms No family history of thyroid cancer No head or neck radiation history Interval history Normal TFTs from this year summer 2024 Ultrasound thyroid 05/31/2025, I reviewed the images myself which show right mid lobe nodule 2.7 cm TR 4 category remained stable in size. Right mid to lower pole 1 cm nodule TR 4 category also remained stable in size. The left superior nodule has increased in size but it is a TR 3 nodule which measures 1.7 cm in still does not meet criteria for biopsy. We will continue to monitor this. The left mid lobe nodule has also increased significantly in size to 2.1 cm in the largest dimension from 1.4 cm in the largest dimension previously, it is a TR 3 nodule. This likely the nodule that was biopsied in 2019 with benign cytology however now with significant increase in size, meets criteria for biopsy. A 0.9 cm left inferior pole TR 2 category nodule noted. Physical exam General: sitting comfortably in no acute distress HEENT: normocephalic/atraumatic, moist oral mucosa Neck: supple, 2 cm palpable right-sided thyroid nodule , no dorsocervical or supraclavicular fat pads Cardiac: normal heart sounds Pulm: normal breath sounds B/L, no added breath sounds Abd: not distended, no tenderness Extremities: no edema, no signs of myxedema Neuro: AAO x3, Speech: normal, no facial droop, moving all 4 extremities Laboratory Tests 11/04/18 04/16/19 01/29/22 08:00 08:00 13:58 Calcium 11.3 H Ionized Calcium Albumin 4.0 N-Telopeptide X-linked 42 58 25-OH Vitamin D Total TSH Free T4 PTH Intact 143 H 05/26/22 11/26/22 06/02/23 11:10 14:18 10:15 Calcium 10.1 D Ionized Calcium Albumin 4.1 N-Telopeptide X-linked 25-OH Vitamin D Total TSH 2.70 Free T4 1.05 PTH Intact 58 06/03/24 06/06/24 12:04 09:15 Calcium 10.0 Ionized Calcium 5.3 Albumin 4.0 N-Telopeptide X-linked 15 25-OH Vitamin D Total 59.1 TSH Free T4 PTH Intact Laboratory Tests 10/07/24 10/08/24 11:17 09:04 Sodium 145 Potassium 4.2 Creatinine 1.00 Estimated GFR 53 Random Glucose 87 Calcium 9.7 9.6 Ionized Calcium 5.2 Alk Phos Bone Specific 11.1 Albumin 4.2 Collgn I C-Telopeptide 142 25-OH Vitamin D Total 63.1 TSH 2.63 Free T4 1.11 PTH Intact 53.3 Laboratory Tests 10/07/24 10/08/24 05/31/25 11:17 09:04 10:37 Creatinine 1.00 Estimated GFR 53 Calcium 9.6 Ionized Calcium 5.4 Phosphorus 3.7 Alk Phos Bone Specific 11.0 Albumin 4.3 Collgn I C-Telopeptide 142 25-OH Vitamin D Total 66.5 TSH 2.80 PTH Intact 37.0 Ur 24 Hour Volume Ur Creatinine mg/dL Ur Creatinine 24 Hour Ur Calcium 24 Hr Calcium/Creat 24 Hr IgG Total 1094 IgA Total 246 IgM 144 06/02/25 06/02/25 07:00 08:08 Creatinine Estimated GFR Calcium Ionized Calcium Phosphorus Alk Phos Bone Specific Albumin Collgn I C-Telopeptide 92 25-OH Vitamin D Total TSH PTH Intact Ur 24 Hour Volume 2675 Ur Creatinine mg/dL 35.39 Ur Creatinine 24 Hour 0.9 L Ur Calcium 24 Hr 83 Calcium/Creat 24 Hr 84 IgG Total IgA Total IgM EXAMINATION: US THYROID 05/31/25 HISTORY: E04.2 - Nontoxic multinodular goiter TECHNIQUE: Real-time grayscale ultrasound imaging was performed and images were reviewed. COMPARISON: Comparison is made with the prior examination dated 06/23/2024. FINDINGS: SIZE: The right thyroid lobe measures 5.3 x 1.7 x 2.2 cm. The left thyroid lobe measures 4.4 x 1.9 x 1.9 cm. The isthmus measures 3 mm. FLOW: Flow to the gland is increased. ECHOGENICITY: The echotexture of the gland is heterogeneous. NODULES: Multiple bilateral thyroid nodules are identified as described below: Nodule #: 1 Location: Midportion of the right thyroid lobe measuring 2.7 x 1.3 x 1.8 cm (previously 2.7 x 1.4 x 1.9 cm). Shape: Wider than tall (0 points) Margins: Smooth (0 points) Echotexture: Isoechoic (1 point) Composition: Mixed (1 point) Calcifications: Punctate calcifications (3 points) Total points: 5 TIRADS: TR4: Moderately suspicious. Nodule #: 2 Location: Mid to lower pole of the right thyroid lobe measuring 1.0 x 0.4 x 1.0 cm (previously 0.8 x 0.3 x 1.1 cm). Shape: Wider than tall (0 points) Margins: Smooth (0 points) Echotexture: Isoechoic (1 point) Composition: Mixed (1 point) Calcifications: Punctate calcifications (3 points) Total points: 5 TIRADS: TR4: Moderately suspicious. Nodule #: 3 Location: Upper pole of the left thyroid lobe measuring 1.7 x 1.1 x 1.2 cm (previously 1.0 x 0.8 x 1.3 cm). Shape: Wider than tall (0 points) Margins: Smooth (0 points) Echotexture: Isoechoic (1 point) Composition: Solid (2 points) Calcifications: None (0 points) Total points: 3 TIRADS: TR3: Mildly suspicious. Nodule #: 4 Location: Midportion of the left thyroid lobe measuring 2.1 x 1.0 x 1.6 cm (previously 0.7 x 0.9 x 1.4 cm). Shape: Wider than tall (0 points) Margins: Smooth (0 points) Echotexture: Isoechoic (1 point) Composition: Solid (2 points) Calcifications: None (0 points) Total points: 3 TIRADS: TR3: Mildly suspicious. Nodule #: 5 Location: Lower pole of the left thyroid lobe measuring 0.9 x 0.5 x 1.0 cm (not seen previously). Shape: Wider than tall (0 points) Margins: Smooth (0 points) Echotexture: Isoechoic (1 point) Composition: Mixed (1 point) Calcifications: None (0 points) Total points: 2 TIRADS: TR2: Not suspicious US/US thyroid IMPRESSION: Multinodular thyroid gland. Nodule #1 above in the midportion of the right thyroid lobe meets ACR TI-RADS guidelines for ultrasound-guided fine-needle aspiration if this has not already been performed. The remaining nodules can be followed. US THYROID 06/25 CLINICAL INFORMATION: Nontoxic multinodular goiter, fine needle aspiration December 30, 2018. COMPARISON: 12/15/2022, 01/04/2020, 11/04/2018. TECHNIQUE: Linear transducer grayscale and color Doppler examination with attention to the region of the thyroid. FINDINGS: SIZE: Measurements of the thyroid lobes and nodules are given in sagittal, anteroposterior and transverse dimensions respectively. Right Thyroid Lobe: 5.0 x 1.5 x 2.5 cm, volume 9.6 mL. Parenchyma: The gland echotexture is heterogeneous. Thyroid vascularity is increased. Left Thyroid Lobe: 4.1 x 1.7 x 1.5 cm, volume 5.4 mL. Parenchyma: The gland echotexture is heterogeneous. Thyroid vascularity is increased. Isthmus: 0.2 cm in maximum AP dimension. Estimated total number of nodules greater than or equal to 1 cm: 4. Bowling Floor Manager nodules are described as follows: 1. Location: Right mid. Size: 2.7 x 1.4 x 1.9 cm, volume 3.8 mm, previously 2.8 x 1.3 x 1.8 cm, volume of 3.4 mL. Nodule characteristics: Composition: Solid/almost completely solid (2). Echogenicity: Isoechoic (1). Shape: Not taller than wide (0). Margins: Ill-defined (0). Echogenic Foci: Punctate echogenic foci (3). ACR TI-RADS total points: 6, previously 6. ACR TI-RADS category: 4, previously 4. 2. Location: Right medial midpole. Size: 0.8 x 0.3 x 1.1 cm, volume 0.1 mm, previously 0.9 x 0.4 x 0.8 cm, volume 0.1 mL. Nodule characteristics: Composition: Solid/almost completely solid (2). Echogenicity: Isoechoic (1). Shape: Not taller than wide (0). Margins: Smooth (0). Echogenic Foci: None (0). ACR TI-RADS total points: 3, previously 3. ACR TI-RADS category: 3, previously 3. 3. Location: Left upper. Size: 1.1 x 0.8 x 1.0 cm, volume 0.5 mL, volume 1.6 x 1.2 x 1.0 cm, volume 1.0 mL mL. Nodule characteristics: Composition: Solid (2). Echogenicity: Isoechoic (1). Shape: Not taller than wide (0). Margins: Ill-defined (0). Echogenic Foci: Punctate echogenic foci (3). ACR TI-RADS total points: 6, previously 9. ACR TI-RADS category: 4, previously 5. 4. Location: Left mid. Size: 1.3 x 0.8 x 1.1 cm, volume 0.6 mm, previously 1.5 x 0.9 x 0.9 cm, volume 0.6 mL. Nodule characteristics: Composition: Solid/almost completely solid (2). Echogenicity: Isoechoic (1). Shape: Not taller than wide (0). Margins: Ill-defined (0). Echogenic Foci: Punctate echogenic foci (3). ACR TI-RADS total points: 6, previously 6. ACR TI-RADS category: 4, previously 4. 5. Location: Left lower. Size: 1.7 x 0.9 x 1.4 cm, volume 1.1 mL, previously 1.4 x 0.8 x 1.2 cm, volume 0.7 mL Nodule characteristics: Composition: Solid/almost completely solid (2). Echogenicity: Isoechoic (1). Shape: Not taller than wide (0). Margins: Smooth (0). Echogenic Foci: None (0). ACR TI-RADS total points: 3, previously 3. ACR TI-RADS category: 3, previously 3. NODES: No lymphadenopathy is seen in the tissue surrounding the thyroid gland. US/US thyroid IMPRESSION: Multinodular thyroid gland. 2.7 cm right mid TR4 nodule meets criteria for biopsy. Fine-needle aspiration recommended if not already performed. Additional thyroid nodules as detailed above for which annual surveillance is recommended. BONE DENSITOMETRY 06/25 CLINICAL INDICATION: Hyperparathyroidism. COMPARISON: Previous BD dated 03/18/2022 and baseline BD dated 09/16/2018. TECHNIQUE: Using a Vitrue DXA System (software version: 13.1) manufactured by [employer], dual-energy x-ray absorptiometry was performed of the lumbar spine, left hip, and left forearm radius 33%. The images are of good technical quality. Summary results are attached. FINDINGS: LEFT FEMUR, NECK: Current: BMD 0.634 g/cm2, Z-score -0.6, T-score -2.9, osteoporosis. Prior: BMD 0.623 g/cm2. Baseline: BMD 0.635 g/cm2. LEFT FEMUR, TOTAL: Current: BMD 0.570 g/cm2, Z-score -1.3, T-score -3.5, osteoporosis, 2.9% increase from previous, 1.2% increase from baseline (<5% change is not significant). Prior: BMD 0.554 g/cm2. Baseline: BMD 0.563 g/cm2. AP SPINE L1-L4: Current: BMD 0.855 g/cm2, Z-score -0.7, T-score -2.7, osteoporosis, 13.5% increase from previous, 8.4% increase from baseline (<5% change is not significant). Prior: BMD 0.753 g/cm2. Baseline: BMD 0.789 g/cm2. LEFT FOREARM RADIUS 33%: BMD 0.558 g/cm2, Z-score -0.7, T-score -3.6, osteoporosis, 6.5% increase from baseline (<5% change is not significant). Baseline: BMD 0.524 g/cm2. IDENTIFIED RISK FACTORS: Menopause, dementia, hyperparathyroidism. HISTORY OF FRACTURE: None listed. MEDICATIONS: Vitamin D. XR THORACIC SPINE 10/08/24 CLINICAL INFORMATION: Age-related osteoporosis without current pathological fracture M81.0. COMPARISON: None available TECHNIQUE: 3 views of the thoracic spine were obtained. FINDINGS: There are 12 rib-bearing thoracic vertebral bodies. Vertebral body heights are maintained. Intervertebral disc spaces are relatively preserved. Pedicles are intact. There is prominence of the left paraspinal soft tissues possibly indicating dilated thoracic aorta. XR/XR thoracic spine 2V IMPRESSION: Left paraspinal soft tissue prominence. Consider cross-sectional imaging correlation. Electronically signed by: Amadou Nobles MD 11/30/2024 09:57 AM EST RP XR HIP RIGHT 10/08/24 CLINICAL INFORMATION: Loss of height R29.890. COMPARISON: None available. TECHNIQUE: Two views of the right hip. FINDINGS: Mild axial cartilage space loss with hypertrophic lipping and buttressing of the femoral head neck junction. No displaced fracture or dislocation. Small sclerotic foci are seen within the right femoral neck and the right iliac bone. XR/XR hip RT min 2V IMPRESSION: Mild osteoarthritis of the right hip. Electronically signed by: Amadou Nobles MD 11/30/2024 09:50 AM EST RP XR LUMBOSACRAL SPINE 10/08/24 CLINICAL INFORMATION: Age-related osteoporosis without current pathological fracture M81.0. COMPARISON: None available. TECHNIQUE: 3 views of the lumbosacral spine. FINDINGS: The bones are osteopenic. There are 5 nonrib-bearing lumbar vertebral bodies. There is leftward curvature of the lumbar spine centered at L3-L4. Relative straightening of the lumbar lordosis. Vertebral body heights are maintained. Intervertebral disc spaces are relatively preserved. Ventral bridging osteophytes at L2-L3. Facet hypertrophy at L5-S1. Possible fusion of the superior sacroiliac joints. Atherosclerotic changes of the abdominal aorta. XR/XR lumbar spine 2-3V IMPRESSION: No acute abnormality. Electronically signed by: Amadou Nobles MD 11/30/2024 09:53 AM EST RP [facility] Medical History (Updated 10/07/24 @ 10:43 by Angelica Land MD) Loss of height Back pain Osteoporosis Multinodular goiter (nontoxic) Hyperparathyroidism Surgical History Hx of oral surgery History of back surgery Family History Father Diabetes Mother No problems noted. Social History Household Members: None Alcohol intake: never Patient Tobacco Use Status: Never used Tobacco Physical Exam Vital Signs: Last Vital Signs Pulse 65 06/19/25 10:19 BP 156/78 H 06/19/25 10:19 Pulse Ox 94 06/19/25 10:19 Oxygen Delivery Method Room Air 06/19/25 10:19 BMI result Body Mass Index 25.8 Assessment & Plan Assessment & Plan (1) Multinodular goiter (nontoxic): Code(s): E04.2 - Nontoxic multinodular goiter Category: Medical Plan: 84-year-old female with no family history of thyroid cancer, with no personal history of head or neck radiation who has had thyroid nodules at least since 2019. status post FNA of a left midpole nodule and right nodule 12/30/2018 with benign cytology. Normal TFTs from this year summer 2024 Ultrasound thyroid 05/31/2025, I reviewed the images myself which show right mid lobe nodule 2.7 cm TR 4 category remained stable in size. Right mid to lower pole 1 cm nodule TR 4 category also remained stable in size. The left superior nodule has increased in size but it is a TR 3 nodule which measures 1.7 cm in still does not meet criteria for biopsy. We will continue to monitor this. The left mid lobe nodule has also increased significantly in size to 2.1 cm in the largest dimension from 1.4 cm in the largest dimension previously, it is a TR 3 nodule. This likely the nodule that was biopsied in 2019 with benign cytology however now with significant increase in size, meets criteria for biopsy. A 0.9 cm left inferior pole TR 2 category nodule noted. I explained that it is common to have thyroid nodules. About 95% of the time these nodules are benign. However if the nodule is > 1 cm in size or suspicious on ultrasound then a fine need aspiration biopsy is recommended. We discussed that a FNAB involves 4-5 passes with a small gauge needle and material obtained is sent off for cytology.If the cytopathology is benign then the nodule will be followed annually with repeat ultrasounds. However if it is suspicious or malignant, we will need to discuss further management. Indeterminate cytology can be further investigated with repeat FNA, genetic testing or empiric lobectomy. Malignant cytology is managed with either lobectomy or total thyroidectomy. We discussed briefly that thyroid cancer is, in most patients, an indolent disease that does not affect mortality. We will arrange for FNA of the left mid 2.1 cm nodule at next available opening and patient will follow up with me in clinic thereafter for results and further decision making. Plan: -scheduled for FNA of the left mid 2.1 cm thyroid nodule and follow up 2 weeks after to discuss results (2) Osteoporosis: Code(s): M81.0 - Age-related osteoporosis without current pathological fracture Category: Medical Qualifiers: Osteoporosis type: age-related Presence of current pathological fracture: without current pathological fracture Qualified Code(s): M81.0 - Age- related osteoporosis without current pathological fracture Plan: Patient with a history of primary hyperparathyroidism, status post left inferior parathyroidectomy in July [address] Eric Barth at [facility] who subsequently had resolution of hypercalcemia as well as normalization of her parathyroid hormone levels. She has been on Fosamax 70 mg weekly for over 5 years, however most recent bone density done in June 2024 still shows persistent osteoporosis with spine t score -2.7 ,13.7 %increase from 2022 in BMD , left femur nec k-2.9 and total femor -3.5 , 2.9 % increase from 2022 foraearm -3.6 , 6.5 % increase from baseline Unfortunately I do not think the Fosamax was stopped to allow for adequate bone accrual. She has had significant increase in bone density of the lumbar spine as well as the forearm, however bone density in the hip remained stable. Her urine NTX level is also low at 15 from June 2024. Labs 10/07/2024 showed CTX of 142, vitamin-D level 63.1, GFR 53, calcium 9.7, with albumin of 4.2, ionized calcium 5.2, bone specific alkaline phosphatase 11.1, PTH 53.3 Since her bone markers are consistent with suppressed resorption and given persistent osteoporosis we stopped Fosamax November 2024 to allow for more bone accrual subsequent to her parathyroidectomy. CTX remains low at 92 from April 2025. Secondary workup from June 2025 shows low 24 hour urine calcium levels indicating poor nutritional intake. Advised on increasing calcium intake. Given persistent osteoporosis, she would benefit from an anabolic agents such as Tymlos or Forteo or Evenity, though she has a history of colon cancer this does not usually have risk of bone metastasis and she does not have any history of radiation to her bones. Given history of hyperparathyroidism in the past, I would prefer Evenity in her case given bone density last in June 2024 showed severe osteoporosis with low T-scores such as-3.5 with a total femur-3.6 at the forearm.. After that would consider switching to Prolia after 1 year of therapy. Plan: -start Evenity monthly injections -continue vitamin-D 2000 units daily -she has minimal nutritional intake of calcium, advised about taking 2-3 servings of calcium daily , if she can not meet 2000 mg daily requirement she can supplement with 600 mg of calcium supplement - fall precautions discussed -30 minutes of walking encouraged daily Plan I spent 45 minutes in reviewing the record, seeing the patient and documenting in the medical record. Orders: Orders US biopsy thyroid Today E04.2 - Nontoxic multinodular goiter Medications: New romosozumab-aqqg (Evenity) 210 mg (2.34 mL) subcut QMONTH 2.34 mL 12RF 12 months Patient Instructions: We will see you on Thursday for your biopsy and a fup 2 weeks after to discuss results in office Continue vitamin D as it is Try to eat more calcium rich foods such as broccoli, spinach, kale,try almond milk, calcium fortified orange juice We plan to start her on a monthly injection called Evenity if insurance approves but if it doesnt we will discuss other options Coding Level of Care Code Est Pt Level 5 (42261) Diagnoses Multinodular goiter (nontoxic) E04.2 Age-related osteoporosis without current pathological fracture M81.0 Osteoporosis type: age-related Presence of current pathological fracture: without current pathological fracture Time Spent (min) 45
[2025-06-19 10:19] VITALS: BP 156/78; PULSE 65; O2SAT 94; BMI 25.8
--- OUTSIDE RECORDS SUMMARY | 2025-06-19 11:15 | XMS_ITS | Encounter Summary ---
Author Organization [facility] Address [address] [place] [address] Phone Care Team Providers Care Preschool Assistant Name Role Phone Jodie Holden MD Primary Care Pro vider Milton Houser MD Primary Care Provider [phone] Encounter Details Date Type Department Care Team (Late st Contact Info) Description 05/20/2022 Procedure Pass [facility] [address] [place] [address] Social History Tobacco Use Types Packs/Day Years [...] Care Team (Late st Contact Info) Description 06/29/2025 11:30 AM EDT Office Visit [facility] Department of Neurology [address] [place] [address] Mook Delgadillo PA-C [address] [place] [email or web address] 07/25/2025 1:20 PM EDT Procedure visit [place] [address] [place] [address] Gonzales Chappell MD, PhD [address] [address] [email or web address] documented as of this encounter Visit Diagnoses Not on filedocumented in this encounter Care Teams Preschool Assistant Relationship Specialty Start Date End Date Jodie Holden MD [address] [place] [address] PCP - General Internal Medicine 11/11/19 10/20/23 Milton Houser MD [address] [place] [id number] PCP - General Internal Medicine 10/21/23 documented as of this encounter Additional Source Comments The information contained in this document represents components of the legal health record. It is not the complete legal health record.[facility]
--- OUTSIDE RECORDS SUMMARY | 2025-06-19 11:15 | XMS_ITS | Clinical Summary ---
Author Organization [facility] [address] Counts include 234 beds at the [facility] Building Address [address] [place] [address] Phone Care Team Providers Care Classified Advertising Supervisor Name Role Phone Milton Houser MD Primary Care Provider [phone] Allergies No known active allergies Medications donepeziL (ARICEPT) 10 mg tablet Take 1 tablet (10 mg total) by mouth at bedtime. 02/26/20 23 Active loratadine (CLARITIN) 10 mg tablet Take 1 Tab by mouth daily as needed for Allergies (or ear symptoms) for up to 360 days. 01/16/20 20 Active UNABLE TO FIND Misc. 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 ICE SKATING COACH) Misc 1 Units by Does not apply [...] Diagnosed Date Postmenopausal bleeding 04/12/2025 Alzheimer's disease ([facility] V24, [facility] V28) 0 12/05/2024 History of colon cancer 10/11/2024 Assessment & Plan (04/27/2025 10:29 AM EDT): Pt declines further colonoscopies due to age Hx of parathyroidectomy 12/15/2022 Dermatochalasis of both eyelids 02/14/2021 Overview (08/05/2024): Skin overhanging upper lashes, visual field testing showing significant blockage, but patient declined to proceed with surgery; evaluated with Dr. Hilario at [facility] 02/14/2021 Insomnia 12/25/2019 Right knee pain 08/30/2017 Hyperparathyroidism ([facility] V24) 02/19/2017 Overview (08/05/2024): [facility], Dr. Kami Alan, declined surgical management Ongoing hypercalcemia and bone loss on sensipar and alendronate, has declined surgical management Vitamin D deficiency 10/29/2016 Overview (08/05/2024): PTH elevated Stable on 2000 IUs daily Hypertension 07/18/2016 Chronic gastritis 07/03/2016 Overview (08/05/2024): Upper endoscopy 2016 Hypercalcemia 06/11/2015 Iron deficiency anemia 06/11/2015 Mixed hyperlipidemia 06/11/2015 Osteoporosis 06/11/2015 Encounters Date Type Department Care Team Description 06/13/2025 Telephone Internal Medicine - [facility] [address] [place] [address] Meka Morgan MA Medicare Annual Wellness Visit Subsequent (AWV DUE after 03/11/2025) 04/27/2025 10:10 AM EDT Consult Gastroenterology - [address] [facility] [address] [place] [address] Janneth Vaz, BODY MECHANIC APPRENTICE Pain at surgical incision (Primary Dx); History of colon cancer 04/03/2025 Telephone Gastroenterology - [address] [facility] [address] [place] [address] Josh Vega MD 03/22/2025 9:30 AM EDT 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 ([facility] V24, [facility] V28); History of colon cancer from [...] tritis; COMMENT: Upper endoscopy 2015 Colon cancer ([facility] V24, [facility] V28) 07/03/2016 DX:Colon cancer ([facility]); COMME NT: S/P right hemicolectomy 01/15/16 [...] Care Team (Late st Contact Info) Description 07/06/2025 10:00 AM EDT Clinical Support Internal Medicine - [address] [address] 07/24/2025 8:30 AM EDT Office Visit Internal Medicine - [address] [address] Malena Roberts NP [address] [place] [address] Health Maintenance Due Date Last Done Comments [...] Name Priority Date/Time Associated Diagnosis Comments EXTERNAL CLINICAL LAB 06/06/2025 EXTERNAL CLINICAL LAB 06/06/2025 EXTERNAL CLINICAL LAB 06/05/2025 EXTERNAL CLINICAL LAB 06/05/2025 EXTERNAL CLINICAL LAB 06/02/2025 EXTERNAL ULTRASOUND REPORT 05/31/2025 COMPREHENSIVE METABOLIC PANEL Routine 09/20/2024 9:05 AM EST Hypercholesterolemia LIPID PANEL WITH REFLEX TO DIRECT LDL Routine 09/20/2024 9:05 AM EST Hypercholesterolemia DXA BONE DENSITY STUDY 1+ SITS AXIAL SKEL Routine 08/15/2021 2:23 PM EDT Unspecified menopausal and perimenopausal disorder HM COLONOSCOPY Routine 08/09/2020 from Last 3 Months or Most Recently Relevant to Health Maintenance Results * External clinical lab (06/06/2025) Only the most recent of5 resultswithin the time period is included. us Provider [facility] LAB BLOOD ORDERABLES Fin al Result * External Ultrasound Report (05/31/2025) Anatomical Region Laterality Modality Ultrasound us Provider [facility] IMG US PROCEDURES Final Result * Lipid panel with reflex to direct LDL (09/20/2024 9:05 AM EST) Cholesterol 157 0 - 200 mg/dL LAB CHEMISTRY METHOD 09/20/2024 12:18 PM EST [facility] Triglycerides 74 0 - 150 mg/dL LAB CHEMISTRY METHOD 09/20/2024 12:18 PM EST [facility] HDL 61 >=40 mg/dL LAB CHEMISTRY METHOD 09/20/2024 12:18 PM [facility] LDL Calculated 81 0 - 100 mg/dL LAB CHEMISTRY METHOD 09/20/2024 12:18 PM EST [facility] VLDL Cholesterol Rafal 14.8 mg/dL LAB CHEMISTRY METHOD 09/20/2024 12:18 PM EST [facility] Non HDL Chol. (LDL+VLDL) 96 <145 mg/dL LAB CHEMISTRY METHOD 09/20/2024 12:18 PM EST [facility] Chol/HDL Ratio 2.6 0.0 - 4.4 LAB CHEMISTRY METHOD 09/20/2024 12:18 PM EST [facility] Blood Venous blood specimen / Unknown Venipuncture / Unknown 09/20/2024 9:05 AM EST 09/20/2024 9:05 AM EST Malena Roberts NP LAB BLOOD ORDERABLES Final Resul t [facility] [address] [place] [address], [place] [phone] * (ABNORMAL) Comprehensive metabolic panel (09/20/2024 9:05 AM EST) Sodium 145 133 - 145 mmol/L LAB CHEMISTRY METHOD 09/20/2024 12:18 PM [facility] Potassium 4.1 3.5 - 5.5 mmol/L LAB CHEMISTRY METHOD 09/20/2024 12:18 PM [facility] Chloride 110 96 - 110 mmol/L LAB CHEMISTRY METHOD 09/20/2024 12:18 PM [facility] CO2 28 21 - 32 mmol/L LAB CHEMISTRY METHOD 09/20/2024 12:18 PM [facility] Anion Gap 7 3 - 11 LAB CHEMISTRY METHOD 09/20/2024 12:18 PM [facility] Glucose 88 70 - 100 mg/dL LAB CHEMISTRY METHOD 09/20/2024 12:18 PM [facility] BUN 16 5 - 25 mg/dL LAB CHEMISTRY METHOD 09/20/2024 12:18 PM [facility] Creatinine 1.04 0.50 - 1.10 mg/dL LAB CHEMISTRY METHOD 09/20/2024 12:18 PM [facility] eGFR 54(L) >=60 mL/min/1. 73m2 LAB CHEMISTRY METHOD 09/20/2024 12:18 PM [facility] Comment:Calculation based on the Chronic Kidney Disease Epidemiology Collaboration (CKD-EPI) equation refit without adjustment for race. BUN/Creatinine Ratio 15.4 LAB CHEMISTRY METHOD 09/20/2024 12:18 PM [facility] Calcium 9.2 8.5 - 10.5 mg/dL LAB CHEMISTRY METHOD 09/20/2024 12:18 PM [facility] AST (SGOT) 18 10 - 42 unit/L LAB CHEMISTRY METHOD 09/20/2024 12:18 PM [facility] ALT (SGPT) 14 10 - 60 unit/L LAB CHEMISTRY METHOD 09/20/2024 12:18 PM [facility] Alkaline Phosphatase 61 42 - 121 unit/L LAB CHEMISTRY METHOD 09/20/2024 12:18 PM EST [facility] Total Protein 6.1 6.0 - 8.0 g/dL LAB CHEMISTRY METHOD 09/20/2024 12:18 PM EST [facility] Albumin 3.1(L) 3.2 - 5.0 g/dL LAB CHEMISTRY METHOD 09/20/2024 12:18 PM EST [facility] Total Bilirubin 0.5 0.0 - 1.4 mg/dL LAB CHEMISTRY METHOD 09/20/2024 12:18 PM EST [facility] Blood Venous blood specimen / Unknown Venipuncture / Unknown 09/20/2024 9:05 AM EST 09/20/2024 9:05 AM EST Malena Roberts NP LAB BLOOD ORDERABLES Final Resul t [facility] [address] [place] [address], * DXA BONE DENSITY STUDY 1+ SITS [...] should be classified as having osteoporosis. The [facility] Department of Internal Medicine recommends [...] [place] should beclassified as having osteoporosis. The [facility] Department of Internal Medicine recommendsusing [...] DXA PROCEDURES Final Result * Colonoscopy (08/09/2020) Colonoscopy no interpretation , abstracted Anatomical Region Laterality Modality Other Historical Provider HEALTH MAINTENANCE Final Result from Last 3 Months or Most Recently Relevant to Health Maintenance Insurance [place]ICA[place] - [place] [employer] MEDICARE Care Teams Classified Advertising Supervisor Relationship Specialty Start Date End Date Milton Houser MD [facility] [address] PCP - General Internal Medicine 09/14/24
== END 2025-06-19 10:58 | disposition home or self-care (01) ==
LOC: HO.ENCR 10:16
PROVIDERS: PCP Internal Medicine; Visit Provider Student in an Organized Health Care Education/Training Program
DX: E04.2 Nontoxic multinodular goiter (principal); M81.0 Age-related osteoporosis without current pathological fracture
CPT/HCPCS: 99215

== ENCOUNTER → 2025-06-19 10:16 | Outpatient (BNVA) | payer MEDICARE, SELFPAY | PROVIDERS: PCP Internal Medicine; Visit Provider Student in an Organized Health Care Education/Training Program | DX: E04.2 Nontoxic multinodular goiter (principal); M81.0 Age-related osteoporosis without current pathological fracture | CPT/HCPCS: 99212 ==

== ENCOUNTER 2025-06-21 07:43 | Outpatient (REF) | payer MEDICARE, SELFPAY ==
--- OUTSIDE RECORDS SUMMARY | 2025-06-21 07:46 | XMS_ITS | Encounter Summary ---
Author Organization [facility] Address [address] [place] [address] Phone Care Team Providers Care Ash Kier Boiler Name Role Phone Jodie Holden MD Primary Care Pro vider Milton Houser MD Primary Care Provider [phone] Encounter Details Date Type Department Care Team (Late st Contact Info) Description 05/20/2022 Procedure Pass [facility] [address] [facility] [address] [place] [address] Social History Tobacco Use Types Packs/Day Years [...] Description 06/29/2025 11:30 AM EDT Office Visit [facility] Department of Neurology [address] [place] [address] Mook Delgadillo PA-C [address] [place] [phone] [email or web address] 07/25/2025 1:20 PM EDT Procedure visit [place] [address] [address] [place] [address] Gonzales Chappell MD, PhD [address] [facility] [address] [email or web address] documented as of this encounter Visit Diagnoses Not on filedocumented in this encounter Care Teams Ash Kier Boiler Relationship Specialty Start Date End Date Jodie Holden MD [address] [place] [address] PCP - General Internal Medicine 11/11/19 10/20/23 Milton Huoser MD [address] [place] [address] PCP - General Internal Medicine 10/21/23 documented as of this encounter Additional Source Comments The information contained in this document represents components of the legal health record. It is not the complete legal health record.[facility]
--- OUTSIDE RECORDS SUMMARY | 2025-06-21 07:46 | XMS_ITS | Clinical Summary ---
Author Organization [facility] [address] [facility] Building Address [address] [place] [address] Phone Care Team Providers Care General Store Manager Name Role Phone Milton Houser MD Primary Care Provider [phone] Allergies No known active allergies Medications donepeziL (ARICEPT) 10 mg tablet Take 1 tablet (10 mg total) by mouth at bedtime. 02/26/20 23 Active loratadine (CLARITIN) 10 mg tablet Take 1 Tab by mouth daily as needed for Allergies (or ear symptoms) for up to 360 days. 01/16/20 20 Active UNABLE TO FIND Misc. 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 TUGBOAT CAPTAIN) Misc 1 Units by Does not apply [...] Diagnosed Date Postmenopausal bleeding 04/12/2025 Alzheimer's disease ([facility] V24, [facility] V28) 0 12/05/2024 History of colon cancer 10/11/2024 Assessment & Plan (04/27/2025 10:29 AM EDT): Pt declines further colonoscopies due to age Hx of parathyroidectomy 12/15/2022 Dermatochalasis of both eyelids 02/14/2021 Overview (08/05/2024): Skin overhanging upper lashes, visual field testing showing significant blockage, but patient declined to proceed with surgery; evaluated with Dr. Hilario at [facility] 02/14/2021 Insomnia 12/25/2019 Right knee pain 08/30/2017 Hyperparathyroidism ([facility] V24) 02/19/2017 Overview (08/05/2024): [facility], Dr. Kami Alan, declined [...] Telephone Internal Medicine - [facility] [address] [place] [address] Meka Morgan [place] Medicare Annual Wellness Visit Subsequent (AWV DUE after 03/11/2025) 04/27/2025 10:10 AM EDT Consult Gastroenterology - [address] [facility] [address] [place] [address] Jnaneth Vaz, MOLD YARD CRANE OPERATOR Pain at surgical incision (Primary Dx); History of colon cancer 04/03/2025 Telephone Gastroenterology - [address] [facility] [address] [place] [address] Josh Vega MD 03/22/2025 9:30 AM EDT [facility] [address] [place] [address] Malena Roberts NP Primary hypertension (Primary Dx); Mixed hyperlipidemia; Hyperparathyroidism ([facility] V24); Osteoporosis, unspecified osteoporosis type, unspecified pathological fracture presence; Iron deficiency anemia, unspecified iron deficiency anemia type; 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 ([facility] V24, [facility] V28); History of colon cancer from [...] tritis; COMMENT: Upper endoscopy 2015 Colon cancer ([facility], [facility] [place] V28) 07/03/2016 DX:Colon cancer ([facility]); COMME NT: S/P right hemicolectomy 01/15/16 [...] AM EDT Clinical Support Internal Medicine - [address] [address] 07/24/2025 8:30 AM EDT Office Visit Internal Medicine - [address] [address] Malena Roberts NP [address] [place] [phone] Health Maintenance Due Date Last Done Comments [...] LAB CHEMISTRY METHOD 09/20/2024 12:18 PM EST [facility] Triglycerides 74 0 - 150 mg/dL LAB CHEMISTRY METHOD 09/20/2024 12:18 PM EST [facility] HDL 61 >=40 mg/dL LAB CHEMISTRY METHOD 09/20/2024 12:18 PM [facility] LDL Calculated 81 0 - 100 mg/dL LAB CHEMISTRY METHOD 09/20/2024 12:18 PM EST [facility] VLDL Cholesterol Rafal 14.8 mg/dL LAB CHEMISTRY METHOD 09/20/2024 12:18 PM EST [facility] Non HDL Chol. (LDL+VLDL) 96 <145 mg/dL LAB CHEMISTRY METHOD 09/20/2024 12:18 PM EST [facility] Chol/HDL Ratio 2.6 0.0 - 4.4 LAB CHEMISTRY METHOD 09/20/2024 12:18 PM EST [facility] Blood Venous blood specimen / Unknown Venipuncture / Unknown 09/20/2024 9:05 AM EST 09/20/2024 9:05 AM EST Malena Roberts NP LAB BLOOD ORDERABLES Final Resul t [facility] [address] [place] [address], [place] [phone] * (ABNORMAL) Comprehensive metabolic panel (09/20/2024 9:05 AM EST) Sodium 145 133 - 145 mmol/L LAB CHEMISTRY METHOD 09/20/2024 12:18 PM [facility] Potassium 4.1 3.5 - 5.5 mmol/L LAB CHEMISTRY METHOD 09/20/2024 12:18 PM [facility] Chloride 110 96 - 110 mmol/L LAB CHEMISTRY METHOD 09/20/2024 12:18 PM [facility] CO2 28 21 - 32 mmol/L LAB CHEMISTRY METHOD 09/20/2024 12:18 PM [facility] Anion Gap 7 3 - 11 LAB CHEMISTRY METHOD 09/20/2024 12:18 PM [facility] Glucose 88 70 - 100 mg/dL LAB CHEMISTRY METHOD 09/20/2024 12:18 PM [facility] BUN 16 5 - 25 mg/dL LAB CHEMISTRY METHOD 09/20/2024 12:18 PM [facility] Creatinine 1.04 0.50 - 1.10 mg/dL LAB CHEMISTRY METHOD 09/20/2024 12:18 PM [facility] eGFR 54(L) >=60 mL/min/1. 73m2 LAB CHEMISTRY METHOD 09/20/2024 12:18 PM [facility] Comment:Calculation based on the Chronic Kidney Disease Epidemiology Collaboration (CKD-EPI) equation refit without adjustment for race. BUN/Creatinine Ratio 15.4 LAB CHEMISTRY METHOD 09/20/2024 12:18 PM [facility] Calcium 9.2 8.5 - 10.5 mg/dL LAB CHEMISTRY METHOD 09/20/2024 12:18 PM [facility] AST (SGOT) 18 10 - 42 unit/L LAB CHEMISTRY METHOD 09/20/2024 12:18 PM [facility] ALT (SGPT) 14 10 - 60 unit/L LAB CHEMISTRY METHOD 09/20/2024 12:18 PM [facility] Alkaline Phosphatase 61 42 - 121 unit/L LAB CHEMISTRY METHOD 09/20/2024 12:18 PM EST [facility] Total Protein 6.1 6.0 - 8.0 g/dL LAB CHEMISTRY METHOD 09/20/2024 12:18 PM EST [facility] Albumin 3.1(L) 3.2 - 5.0 g/dL LAB CHEMISTRY METHOD 09/20/2024 12:18 PM EST [facility] Total Bilirubin 0.5 0.0 - 1.4 mg/dL LAB CHEMISTRY METHOD 09/20/2024 12:18 PM EST [facility] Blood Venous blood specimen / Unknown Venipuncture / Unknown 09/20/2024 9:05 AM EST 09/20/2024 9:05 AM EST Malena Roberts NP LAB BLOOD ORDERABLES Final Resul t [facility] [address] [place] [address], * DXA BONE DENSITY STUDY 1+ SITS [...] should be classified as having osteoporosis. The [facility] Department of Internal Medicine recommends using [...] [place] should beclassified as having osteoporosis. The [facility] Department of Internal Medicine recommendsusing National [...] - [place] UNITED [employer] MEDICARE Care Teams General Store Manager Relationship Specialty Start Date End Date Milton Houser MD [facility] [place] [address] PCP - General Internal Medicine 09/14/24
--- NOTE | 2025-06-21 08:32 | PM.PROC ---
Brief Operative Note Date of procedure: 06/21/25 Pre-op diagnosis: left mid 2.1 cm thyroid nodule FNA biopsy Post-op diagnosis: same Procedure: THYROID FINE NEEDLE ASPIRATION PROCEDURE NOTE ? PROCEDURE PERFORMED: Ultrasound-guided FNA of thyroid nodule ? OPERATORS: Dr. Angelica Land ? INDICATION: left mid 2.1 cm thyroid nodule ; FNA performed to assess for malignancy ? DESCRIPTION OF PROCEDURE: The indications for FNA (to assess for malignancy) were reviewed with the patient in detail. Potential complications (e.g., bleeding, infection, damage to local structures, absence of clear diagnosis after FNA) were reviewed. Alternatives to FNA including conservative observation or surgery were described. The patient understood and agreed to proceed. This was documented by the signing of the written informed consent form. A time-out was performed to confirm the patient's identity and the site of planned FNA. The nodule of interest was identified using ultrasound (14 MHz linear array probe). The site of FNA was then draped in the usual fashion and carefully cleaned and prepared using alcohol swabs. The skin at the previously-identified site of needle insertion was iced and sprayed with numbing spray. Under ultrasound guidance, _4_ passes were performed using a 1.5-inch, 25-gauge needle, and sample was obtained via capillary action. The needle tip was clearly visualized to be within the nodule at the time of sampling for 4__ of 4__ passes The patient tolerated the procedure well. There were no immediate complications. A small adhesive bandage was applied, and the patient was advised to take acetaminophen (rather than NSAIDs) for any discomfort and to report any signs of inflammation/infection or marked swelling. IMPRESSION: Technically successful ultrasound-guided fine needle aspiration of left mid 2.1 cm thyroid nodule. PLAN: The patient was advised that I will provide follow-up regarding the cytology result and any subsequent plans. Angelica Land MD Endocrinology Attending Condition: stable Disposition: same day
== END 2025-06-21 07:44 | disposition home or self-care (01) ==
LOC: HO.US 07:43
PROVIDERS: PCP Internal Medicine; Visit Provider Student in an Organized Health Care Education/Training Program
DX: E04.2 Nontoxic multinodular goiter (principal)
CPT/HCPCS: 10005; 88173; 88305

== ENCOUNTER → 2025-06-21 07:43 | Outpatient (BNV) | payer MEDICARE, SELFPAY | PROVIDERS: PCP Internal Medicine; Visit Provider Student in an Organized Health Care Education/Training Program | DX: E04.1 Nontoxic single thyroid nodule (principal) | CPT/HCPCS: 10005 ==

== ENCOUNTER 2025-07-05 13:52 | Outpatient (AMB) | payer MEDICARE, SELFPAY ==
--- OUTSIDE RECORDS SUMMARY | 2025-07-04 15:30 | XMS_ITS | Encounter Summary ---
Author Organization [facility] Address [address] [place] [address] Care Team Providers Care Sleever Name Role Phone Milton Houser MD Primary Care Provider [phone] Reason for Visit * Reason Comments Medicare Annual Wellness Visit Subsequen t Encounter Details Date Type Department Care Team (Late st Contact Info) Description 07/04/2025 3:30 PM EDT [facility] [address] [place] [phone] Malena Roberts, MIHIR [address] [place] [phone] Primary hypertension (Primary Dx); Mixed hyperlipidemia; Hyperparathyroidism (CMS/HCC V24); Osteoporosis, unspecified osteoporosis type, unspecified pathological fracture presence; History of iron deficiency anemia; Alzheimer's disease (CMS/HCC V24, CMS/HCC V28); History of colon cancer; Colonoscopy refused; Encounter for subsequent annual wellness visit (AWV) in Medicare patient Social History Tobacco Use Types Packs/Day Years Used Date Smoking Tobacco: Never Smokeless Tobacco: Never Tobacco Cessation:Counseling Given: Not Answered Alcohol Use Standard Drinks/Week Comments No 0 (1 standard drink = 0.6 oz pur e alcohol) Housing Instability Answer Date Recorde d Are you worried that in the next 2 months you may not have stable housing? No 07/04/2025 Food Access & Nutrition Answer Date Rec orded Do you have access to a vari ety of food including fruits and vegetables? Yes 07/04/2025 Access to Healthcare Answer Date Record ed Within the last 3 months, ho w many times did you visit the emergency department for your medical care? 0 07/04/2025 Financial Risk Answer Date Recorded How hard is it for you to pa y for the very basics like food, housing, medical care, and air conditioning / heating? Not very hard 07/04/2025 Transportation Answer Date Recorded Has the lack of transportati on kept you from meetings, work, or from getting things needed for daily living? No Has the lack of transportati on kept you from medical appointments or from getting medications? No 07/04/2025 Food Risk Answer Date Recorded Within the past 12 months we worried whether our food would run out before we got money to buy more. Never true 07/04/2025 Within the past 12 months th e food we bought just didn't last and we didn't have money to get more. Never true 07/04/2025 Living Situation Answer Date Recorded What is your living situation? 0 07/04/2025 Comments No Sex and Gender Information Value Date Recorded Sex Assigned at Female 11/22/2024 9:00 AM EST Legal Sex Female 10:31 PM EST Gender Identity Female 11/22/2024 9:00 AM EST Sexual Orientation Straight 11/22/2024 9: 00 AM EST documented as of this encounter Last Filed Vital Signs Vital Sign Reading Time Taken Comments Blood Pressure 120/56 07/04/2025 3:11 PM EDT Pulse 66 07/04/2025 3:11 PM EDT Temperature - - Respiratory Rate - - Oxygen Saturation - - Inhaled Oxygen Concentration - - Weight 66 kg (145 lb 9.6 oz) 07/04/2025 3:11 PM EDT Height - - Body Mass Index 24.99 04/27/2025 10:14 AM EDT documented in this encounter Progress Notes * Malena Roberts NP - 07/04/2025 3:30 PM EDT [address] [id number] * Malena Roberts NP - 07/04/2025 3:30 PM EDT CHIEF COMPLAINT: Medicare Annual Wellness Visit Subsequent HPI: Mp Bustamante is a 85 y.o. female here for regular follow up on chronic issues and annual wellness visit. Accompanied by her son. - HTN on Amlodipine 5 mg daily, BP 120/ 56 today, tolerating medication well, denies headache, dizzness, chest pain or dyspnea - HLD on Atorvastatin 10 mg daily. Cholesterol 157. LDL 81 in . Will check LP and CMP - Hyperparathyroidism and thyroid nodules, followed by Endocrinology in [place] Dr. Lazaro every 6-12 months. S/p parathyroidecomy [place] [address] Barth Endocrine surgery - Osteoporosis, no longer taking Fosamax 70 mg weekly. Instructed to d/c Fosamax by Dr. Villagomez. She takes vitamin D daily. - SÁNCHEZ, last Iron pill in 2021, RBC 3.7. H/H 11.3/ 36.5 in 09/2024. UA revealed large amount of blood in 2023. She was seen by Urology in 2024. Will check CBC - Alzheimer's dementia on Aricept 10 mg daily and memantine 10 mg daily, followed by Neurology regularly, every 6 months - History of colon cancer, colonoscopy in 2019 which was reassuring with 5- year follow-up recommended. Seen by complaint clerk, declined colonoscopy ROS: GENERAL: No malaise, significant weight loss or fever RESPIRATORY: No cough, wheezing or shortness of breath CARDIOVASCULAR: No chest pain, leg swelling or palpitations : see HPI Musculoskeletal see HPI: PSYCH: see HPI ENDOCRINE: see HPI. NEURO: No persistent headache, syncope, seizures, weakness or numbness PAST MEDICAL HISTORY: Patient Active Problem List Diagnosis Date Noted Postmenopausal bleeding 04/12/2025 Alzheimer's disease ([facility]/HCC V24, [facility] V28) 12/05/2024 History of colon cancer 10/11/2024 Hx of parathyroidectomy 12/15/2022 Dermatochalasis of both eyelids 02/14/2021 Insomnia 12/25/2019 Right knee pain 08/30/2017 Hyperparathyroidism ([facility] V24) 02/19/2017 Vitamin D deficiency 10/29/2016 Hypertension 07/18/2016 Chronic gastritis 07/03/2016 Hypercalcemia 06/11/2015 Iron deficiency anemia 06/11/2015 Mixed hyperlipidemia 06/11/2015 Osteoporosis 06/11/2015 PASTSURGICAL HSTORY: Past Surgical History: Procedure Laterality Date BOWEL RESECTION 01/15/16 PROCEDURE: HISTORICAL BOWEL RESECTION; COMMENT: R hemicolectomy / adenocarcinoma COLONOSCOPY 12/21/2015 PROCEDURE: HISTORICAL COLONOSCOPY; COMMENT: repeat surveillance 07/15/17 Nancy OTHER SURGICAL HISTORY PROCEDURE: MAMMOGRAM UPPER GASTROINTESTINAL ENDOSCOPY 2015 PROCEDURE: UPPER GI ENDOSCOPY/EXAM IMMUNIZATIONS/INJECTIONS: Most Recent Immunizations Administered Date(s) Administered Influenza, Unspecified 09/18/2024 Pfizer (ages 12 & older) Bivalent, COVID-19 04/17/2023 Pfizer SARS-CoV-2 COVID-19, mRNA, LNP-S, preservative free 12/09/2020 Pneumococcal conjugate 20 valent (Prevnar 20, PCV 20) 2mo and older 03/21/2024 SOCIAL HISTORY: Social History Tobacco Use Smoking status: Never Smokeless tobacco: Never Substance Use Topics Alcohol use: No Drug use: No FAMILY HISTORY: Family History Problem Relation Name Age of Onset Coronary artery disease Father HTN, Diabetes, age 75 Diabetes Sister elevated cholesterol MEDICATIONS DISCONTINUED/REORDERED: There are no discontinued medications. ACTIVE MEDICATIONS: Outpatient Medications Marked as Taking for the 07/04/25 encounter (Office Visit) with Malena Roberts NP Medication Sig Dispense Refill amLODIPine (NORVASC) 5 mg tablet TAKE 1 TABLET BY MOUTH 1 TIME EACH DAY. 90 tablet 1 atorvastatin (LIPITOR) 10 mg tablet TAKE 1 TABLET BY MOUTH 1 TIME EACH DAY. 90 tablet 1 calcium carbonate (CALCIUM ORAL) Take 600 mg by mouth 1 (one) time each day. cholecalciferol (VITAMIN D-3) 25 mcg (1,000 unit) tablet TAKE 1 TABLET BY MOUTH TWICE A DAY 180 tablet 1 donepeziL (ARICEPT) 10 mg tablet Take 1 tablet (10 mg total) by mouth at bedtime. loratadine (CLARITIN) 10 mg tablet Take 1 Tab by mouth daily as needed for Allergies (or ear symptoms) for up to 360 days. memantine (NAMENDA) 10 mg tablet Take 1 tablet (10 mg total) by mouth 1 (one) time each day. UNABLE TO FIND Misc. 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 CERTIFIED REHABILITATION COUNSELOR) Misc 1 Units by Does not apply route See Admin Instructions. Use to exercise legs twice daily for leg strengthening ALLERGIES: No Known Allergies PHYSICAL EXAM: Visit Vitals BP 120/56 Pulse 66 Wt 66 kg (145 lb 9.6 oz) BMI 24.99 kg/m?? OB Status Postmenopausal Smoking Status Never BSA 1.71 m?? Body mass index is 24.99 kg/m??. APPEARANCE: Alert and in no acute distress EYES: PERRL, conjunctiva and sclera normal HEART: RRR with normal S1 and S2 LUNG: clear to auscultation EXTREMITIES: Extremities warm, no edema NEURO: Awake, alert and oriented x 3. Cranial nerves II-XII intact LABS: LABS/IMAGING: Lab Results Component Value Date WBC 7.4 09/20/2024 HGB 11.3 (L) 09/20/2024 HCT 36.5 09/20/2024 MCV 100.0 (H) 09/20/2024 Lab Results Component Value Date NA 145 09/20/2024 K 4.1 09/20/2024 CO2 28 09/20/2024 CL 110 09/20/2024 BUN 16 09/20/2024 ALKPHOS 61 09/20/2024 Lab Results Component Value Date CHOL 157 09/20/2024 LDL 85 06/29/2023 HDL 61 09/20/2024 TRIG 74 09/20/2024 IMPRESSION / Plan 1. Primary hypertension 2. Mixed hyperlipidemia Lipid panel with reflex to direct LDL Comprehensive metabolic panel 3. Hyperparathyroidism ([facility] V24) 4. Osteoporosis, unspecified osteoporosis type, unspecified pathological fracture presence 5. History of iron deficiency anemia CBC and differential 6. Alzheimer's disease ([facility] V24, [facility] V28) 7. History of colon cancer 8. Colonoscopy refused 9. Encounter for subsequent annual wellness visit (AWV) in Medicare patient - HTN, well controlled, continue Amlodipine 5 mg daily - HLD, stable, continue Atorvastatin 10 mg daily. Will check LP and CMP - Hyperparathyroidism and thyroid nodules, s/p parathyroidecomy, follow up with Endocrinology in [place] Dr. Lazaro. - Osteoporosis, stable, encouraged diet rich in calcium and vitamin D. Dairy products. - History of SÁNCHEZ, stable, follow up with urology for hematuria. Will check CBC - Dementia, stable, continue Aricept 10 mg daily and memantine 10 mg daily, follow up with Neurology - RTO in 4 months or sooner with PCP care team Malena Roberts NP on 07/04/2025 at 4:38 PM EDT Medicare Annual Wellness Visit Note Patient Name: Mp Bustamante Date of : 1940 Race: Other Ethnicity: Not Hispan/Lat Date of Service: 07/04/2025 Mp is a 85 y.o. female presenting for Medicare Annual Wellness Visit Subsequent History of Present Illness HPI Comprehensive Medical and Social History: Patient Active Problem List Diagnosis Chronic gastritis Dermatochalasis of both eyelids Hypercalcemia Hyperparathyroidism ([facility] V24) Hypertension Insomnia Iron deficiency anemia Mixed hyperlipidemia Osteoporosis Right knee pain Vitamin D deficiency History of colon cancer Postmenopausal bleeding Hx of parathyroidectomy Alzheimer's disease ([facility] V24, [facility] V28) No Known Allergies Current Outpatient Medications Medication Sig Dispense Refill amLODIPine (NORVASC) 5 mg tablet TAKE 1 TABLET BY MOUTH 1 TIME EACH DAY. 90 tablet 1 atorvastatin (LIPITOR) 10 mg tablet TAKE 1 TABLET BY MOUTH 1 TIME EACH DAY. 90 tablet 1 calcium carbonate (CALCIUM ORAL) Take 600 mg by mouth 1 (one) time each day. cholecalciferol (VITAMIN D-3) 25 mcg (1,000 unit) tablet TAKE 1 TABLET BY MOUTH TWICE A DAY 180 tablet 1 donepeziL (ARICEPT) 10 mg tablet Take 1 tablet (10 mg total) by mouth at bedtime. loratadine (CLARITIN) 10 mg tablet Take 1 Tab by mouth daily as needed for Allergies (or ear symptoms) for up to 360 days. memantine (NAMENDA) 10 mg tablet Take 1 tablet (10 mg total) by mouth 1 (one) time each day. UNABLE TO FIND Misc. 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 CERTIFIED REHABILITATION COUNSELOR) Misc 1 Units by Does not apply route See Admin Instructions. Use to exercise legs twice daily for leg strengthening No current facility-administered medications for this visit. Past Medical History: Diagnosis Date Chronic gastritis 07/03/2016 DX:Chronic gastritis; COMMENT: Upper endoscopy 2016 Colon cancer ([facility] V24, [facility] V28) 07/03/2016 DX:Colon cancer ([facility]); COMMENT: S/P right hemicolectomy 01/15/16 Hypercalcemia 06/11/2015 DX:Hypercalcemia Iron deficiency anemia 06/11/2015 DX:Iron deficiency anemia Mixed hyperlipidemia 06/11/2015 DX:Mixed hyperlipidemia Osteoporosis 06/11/2015 DX:Osteoporosis Past Surgical History: Procedure Laterality Date BOWEL RESECTION 01/15/16 PROCEDURE: HISTORICAL BOWEL RESECTION; COMMENT: R hemicolectomy / adenocarcinoma COLONOSCOPY 12/21/2015 PROCEDURE: HISTORICAL COLONOSCOPY; COMMENT: repeat surveillance 07/15/17 Nancy OTHER SURGICAL HISTORY PROCEDURE: MAMMOGRAM UPPER GASTROINTESTINAL ENDOSCOPY 2015 PROCEDURE: UPPER GI ENDOSCOPY/EXAM Social History Socioeconomic History Marital status: Spouse name: None Number of children: None Years of education: None Highest education level: None Occupational History None Tobacco Use Smoking status: Never Smokeless tobacco: Never Substance and Sexual Activity Alcohol use: No Drug use: No Sexual activity: None Other Topics Concern None Social History Narrative Lives with From [place] in her 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 Family History Problem Relation Name Age of Onset Coronary artery disease Father HTN, Diabetes, age 75 Diabetes Sister elevated cholesterol Immunizations: Immunization History Administered Date(s) Administered Influenza, Unspecified 09/18/2024 Pfizer (ages 12 & older) Bivalent, COVID-19 08/18/2022, 04/17/2023 Pfizer SARS-CoV-2 COVID-19, mRNA, LNP-S, preservative free 11/18/2020, 12/09/2020 Pneumococcal conjugate 20 valent (Prevnar 20, PCV 20) 2mo and older 03/21/2024 Hospitalization in the last year: Has not been hospitalized in last year Current Providers and Suppliers: Patient Care Team: Milton Houser MD as PCP - General (Internal Medicine) Patient does not have/use current medical supplier Risk Assessments: Cognitive Function Assessment Mini-Cognitive screening performed, results reviewed Clock Drawing Test: Abnormal Word Recall: Two Words Mini Cog Score: 2 Mini Cog Results: Positive screen for dementia Depression Screening (PHQ2/9): Depression Screening Over the last 2 weeks, how often have you been bothered by little interest or pleasure in doing things?: Several days Over the last 2 weeks, how often have you been bothered by feeling down, depressed, or hopeless?: Several days Depression Risk: 2 PHQ9 Full Set of Questions Over the last 2 weeks, how often have you been bothered by little interest or pleasure in doing things?: Several days Over the last 2 weeks, how often have you been bothered by feeling down, depressed, or hopeless?: Several days PHQ -9 Depression Risk Score: 2 Screening Result: Negative Risk Category: Negative Depression Plan : Screen was negative Pain: Pain Medications: Patient does not take any opioid medications BMI: Body mass index is 24.99 kg/m??. The BMI is in the acceptable range. Functional Ability and Level of Safety Review Health Status: In general, the patient reports health as: fair In general, patient reports life as: fair Patient reports sleep pattern as: restless Have you seen a dentist in the last year?: No Activity of Daily Living (ADLs): No data recorded Instrumental Activities of Daily Living (IADLs): Do you need help with using the telephone?: No Do you need help with shopping?: Yes Do you need help with food preparation?: Yes Do you need help with housekeeping?: Yes Do you need help with laundry?: Yes Do you need help handling finances?: Yes Do you drive?: No Do you manage your own medication?: No Physical Activity: Do you exercise for about 20 minutes or more three days a week?: Yes, sometimes Nutritional Assessment: Do you eat a balanced diet including daily serving of fruits, vegetables, and whole grains?: Yes, sometimes Social Influencer of Health (SIOH): Social Influencers of Health Who provided answers?: Daughter/Son Within the past 12 months we worried whether our food would run out before we got money to buy more.: Never true Within the past 12 months the food we bought just didn't last and we didn't have money to get more.: Never true How hard is it for you to pay for the very basics like food, housing, medical care, and air conditioning / heating?: Not very hard Are you worried that in the next 2 months you may not have stable housing?: No Do you have access to a variety of food including fruits and vegetables?: Yes Within the last 3 months, how many times did you visit the emergency department for your medical care?: 0 Has the lack of transportation kept you from meetings, work, or from getting things needed for daily living?: No Has the lack of transportation kept you from medical appointments or from getting medications?: No Sexual Health: Have you been bothered by sexual problems: No Fall Risk: Have you fallen in the past year? yes. Are you worried about falling? yes. . Hearing: No data recorded Vision Screening: Required for Medicare Initial Preventative Physical Exam (IPPE) No data recorded Additional Screenings if indicated: Review of Systems Review of Systems Objective BP 120/56 Pulse 66 Wt 66 kg (145 lb 9.6 oz) BMI 24.99 kg/m?? Physical Exam ASSESSMENT AND PLAN: Patient presented today for an Subsequent Medicare Wellness Visit with management of chronic condition(s). ASSESSMENT AND PLAN - Colonoscopy, mammogram, bone density maintenance reviewed with patient. Pt is up to date - Covid/pneumonia/influenza/shingles vaccine reviewed and discussed with patient. Pt is uptodate. Pt has received the COVID 19 vaccine and booster - Pt did not express any significant concerns at this time. - Advised to follow up routinely for continued monitoring of chronic medical problems and preventive care BMI SCREENING REVIEWED: The patient is overweight. Approaches towards weight loss are encouraged, including burning more calories than one takes in by avoiding eating before bedtime DEPRESSION SCREENING REVIEWED: Clinical Depression Screening was performed and patient is negative for significant depression. No alarming signs; interacting appropriattely; good eye contact. FUNCTIONAL ASSESSMENT (ADL/I-ADL) SCREENING REVIEWED: Functional Assessment: functional ability hasremained stable. No immediate concerns. FALL RISK SCREENING REVIEWED: Future Fall Risk Screening: patient is NEGATIVE for future fall risk (no falls in the past 6 months). HOME SAFETY REVIEWED: Home accomodations discussed if indicated. Otherwise, Home Safety screen unremarkable. COGNITIVE SCREENING REVIEWED: No evidence of significant cognitive impairment. Answering questions appropriattely, no gross acute neuro deficits or concerns. PAIN ASSESSMENT REVIEWED: Chronic Pain adequately controlled. ADVANCE DIRECTIVES REVIEWED: Reviewed with patient, and full code. Malena Roberts NP INTERNAL MEDICINE - [address] Dept: [phone] Dept documented in this encounter Plan of Treatment Upcoming Encounters Date Type Department Care Team (Late st Contact Info) Description 01/02/2026 9:45 AM EST Office Visit Internal Medicine - [address] [phone] Malena Roberts NP [address] [place] [address] documented as of this encounter Results * (ABNORMAL) Comprehensive metabolic panel (07/05/2025 8:46 AM EDT) Sodium 143 133 - 145 mmol/L LAB CHEMISTRY METHOD 07/05/2025 1:[address] [facility] Potassium 4.6 3.5 - 5.5 mmol/L LAB CHEMISTRY METHOD 07/05/2025 1:[address] [facility] Chloride 108 96 - 110 mmol/L LAB CHEMISTRY METHOD 07/05/2025 1:[address] [facility] CO2 30 21 - 32 mmol/L LAB CHEMISTRY METHOD 07/05/2025 1:[address] [facility] Anion Gap 5 3 - 11 LAB CHEMISTRY METHOD 07/05/2025 1:[address] [facility] Glucose 85 70 - 100 mg/dL LAB CHEMISTRY METHOD 07/05/2025 1:[address] [facility] BUN 18 5 - 25 mg/dL LAB CHEMISTRY METHOD 07/05/2025 1:[address] [facility] Creatinine 1.04 0.50 - 1.10 mg/dL LAB CHEMISTRY METHOD 07/05/2025 1:[address] [facility] eGFR 53(L) >=60 mL/min/1. 73m2 LAB CHEMISTRY METHOD 07/05/2025 1:[address] [facility] Comment:Calculation based on the Chronic Kidney Disease Epidemiology Collaboration (CKD-EPI) equation refit without adjustment for race. BUN/Creatinine Ratio 17.3 LAB CHEMISTRY METHOD 07/05/2025 1:[address] [facility] Calcium 9.6 8.5 - 10.5 mg/dL LAB CHEMISTRY METHOD 07/05/2025 1:[address] [facility] AST (SGOT) 24 10 - 42 unit/L LAB CHEMISTRY METHOD 07/05/2025 1:[address] [facility] ALT (SGPT) 22 10 - 60 unit/L LAB CHEMISTRY METHOD 07/05/2025 1:43 PM EDT [facility] Alkaline Phosphatase 74 42 - 121 unit/L LAB CHEMISTRY METHOD 07/05/2025 1:43 PM EDT [facility] Total Protein 6.6 6.0 - 8.0 g/dL LAB CHEMISTRY METHOD 07/05/2025 1:43 PM EDT [facility] Albumin 3.6 3.2 - 5.0 g/dL LAB CHEMISTRY METHOD 07/05/2025 1:43 PM EDT [facility] Total Bilirubin 0.5 0.0 - 1.4 mg/dL LAB CHEMISTRY METHOD 07/05/2025 1:43 PM EDT [facility] Blood Venous blood specimen / Unknown Venipuncture / Unknown 07/05/2025 8:46 AM EDT 07/05/2025 8:46 AM EDT us Malena Roberts NP LAB BLOOD ORDERABLES Final Resul t [facility] [address] [place] [address], * Lipid panel with reflex to direct LDL (07/05/2025 8:46 AM EDT) Cholesterol 163 0 - 200 mg/dL LAB CHEMISTRY METHOD 07/05/2025 1:43 PM EDT [facility] Triglycerides 95 0 - 150 mg/dL LAB CHEMISTRY METHOD 07/05/2025 1:43 PM EDT [facility] HDL 70 >=40 mg/dL LAB CHEMISTRY METHOD 07/05/2025 1:43 PM EDT [facility] LDL Calculated 74 0 - 100 mg/dL LAB CHEMISTRY METHOD 07/05/2025 1:43 PM EDT [facility] Comment:Estimated LDL Calcul ated using equation: Total cholesterol - HDL cholesterol - (Triglycerides/5) VLDL Cholesterol Rafal 19 mg/dL LAB CHEMISTRY METHOD 07/05/2025 1:43 PM EDT [facility] Non HDL Chol. (LDL+VLDL) 93 <145 mg/dL LAB CHEMISTRY METHOD 07/05/2025 1:43 PM EDT [facility] Chol/HDL Ratio 2.3 0.0 - 4.4 LAB CHEMISTRY METHOD 07/05/2025 1:43 PM EDT [facility] Blood Venous blood specimen / Unknown Venipuncture / Unknown 07/05/2025 8:46 AM EDT 07/05/2025 8:46 AM EDT us Malena Roberts NP LAB BLOOD ORDERABLES Final Resul t [facility] [address] [place] [address], documented in this encounter Visit Diagnoses Diagnosis Primary hypertension- Primary Unspecified essential hypertension Mixed hyperlipidemia Hyperparathyroidism (CMS/[facility] V24) Hyperparathyroidism, unspecified Osteoporosis, unspecified osteoporosis type, unspecified pathological fracture presence History of iron deficiency anemia Personal history of diseases of blood and blood-forming organs Alzheimer's disease (CMS/HCC V24, CMS/[facility] V28) Alzheimer's disease History of colon cancer Personal history of malignant neoplasm of large intestine Colonoscopy refused Encounter for subsequent annual wellness visit (AWV) in Medicare patient documented in this encounter Historical Medications * This list may reflect changes made after this encounter. calcium carbonate (CALCIUM ORAL) Take 600 mg by mouth 1 (one) time each day. added in this encounter Additional Health Concerns Assessment Noted Time PHQ-9 Depression Total Score: 2 07/04/20 25 4:06 PM EDT documented as of this encounter Care Teams Sleever Relationship Specialty Start Date End Date Milton Houser MD [address] [place] [address] PCP - General Internal Medicine 09/14/24 documented as of this encounter
[2025-07-05 13:55] VITALS: BP 146/86; PULSE 68; O2SAT 96; BMI 25.7
--- NOTE | 2025-07-05 13:55 | MHC.OFFVIS ---
Vital Signs 07/05/25 13:55 Height 5 ft 3 in Weight 144 lb 13.499 oz BMI 25.7 BP 146/86 H Blood Pressure Location Lt brachial Position Sitting Pulse 68 Pulse Source Pulse Oximeter Pulse Oximetry (%) 96 Oxygen Delivery Method Room Air Intake Visit Reasons: Biopsy f/u Intake Note: Patient present today for biopsy follow up visit. Track Equipment Operator Required: Yes Track Equipment Operator Language: Citizen Of [place] - Traditional Track Equipment Operator Services: Track Equipment Operator Offered & Declined Accompanied by: Son Allergies No Known Allergies Allergy (Verified 07/05/25 14:01) Medication List - Last Reconciled 07/05/25 by Angelica Land MD amlodipine 2.5 mg PO DAILY atorvastatin 10 mg PO DAILY cholecalciferol (vitamin D3) 50 mcg PO DAILY donepezil 10 mg PO BEDTIME memantine 10 mg PO QPM [id number] (Evenity) 210 mg (2.34 mL) subcut QMONTH 12 months HPI Comments Details: This is a 85-year-old Mandarin female with a history of primary hyperparathyrodism s/p right inferior parathyroidectomy and osteoporosis. Also follows for MNG. primary hyperparathyroidism osteoporosis s/p right inferior parathyroidectomy 07/2022, with Dr. Eric Marie at [facility] , intraop PTH dropped from 420 to 27 osteoporosis. on fosamax 70 mg weekly unclear on how long she has been on this but patient sons endorses at least been on it for the past 5 years s vitamin D3 2000 IU per day . No kidney stones in past. No fragility fx Dexa 06/25 spine t score -2.7 ,13.7 %increase from 2021 in BMD , left femu nec k-2.9 and total femor -3.5 , 2.9 % increase from 2022 foraearm -3.6 6.5 % increase from baseline Lost 2 inches of height since 1 years Complaining of worsening back pain for the past 1 year HAd a recent fall as fell on knees last week, no known fractures She has all dentures Interval history 12/02/24 Labs 10/07/2024 showed CTX of 142, vitamin-D level 63.1, GFR 53, calcium 9.7, with albumin of 4.2, ionized calcium 5.2, bone specific alkaline phosphatase 11.1, PTH 53.3 X-rays of the spine, hip did not show any fracture. Interval history 06/19/25 Stopped Fosamax November 2024 Vitamin D 2000 units daily Calcium 300 mg BID tablet daily, no milk yogurt cheese No falls or fractures Labs from May 2025 showed normal protein electrophoresis, normal immunofixation, low 24 hour urine calcium levels, normal calcium, PTH, vitamin-D of 66. CTX 92, BSAP 11. Interval history 07/05/2025 Evenity has been approved, pending start of injections MNG She also has a history of a multinodular goiter unclear year of diagnosis status post FNA of a left midpole nodule and right nodule 12/30/2018 with benign cytology. Recent thyroid ultrasound June 2024 showed stability in size of the nodules Denies compressive symptoms No hypo/hyperthyroid symptoms No family history of thyroid cancer No head or neck radiation history Normal TFTs from this year summer 2024 Ultrasound thyroid 05/31/2025, I reviewed the images myself which show right mid lobe nodule 2.7 cm TR 4 category remained stable in size. Right mid to lower pole 1 cm nodule TR 4 category also remained stable in size. The left superior nodule has increased in size but it is a TR 3 nodule which measures 1.7 cm in still does not meet criteria for biopsy. We will continue to monitor this. The left mid lobe nodule has also increased significantly in size to 2.1 cm in the largest dimension from 1.4 cm in the largest dimension previously, it is a TR 3 nodule. This likely the nodule that was biopsied in 2018 with benign cytology however now with significant increase in size, meets criteria for biopsy. A 0.9 cm left inferior pole TR 2 category nodule noted. Interval history 06/21/25: Status post FNA of the left mid 2.1 cm thyroid nodule which came back as nondiagnostic, Clare category 1, rare colloid and rare follicular cells seen with predominantly blood. Physical exam General: sitting comfortably in no acute distress HEENT: normocephalic/atraumatic, moist oral mucosa Neck: supple, 2 cm palpable right-sided thyroid nodule , no dorsocervical or supraclavicular fat pads Cardiac: normal heart sounds Pulm: normal breath sounds B/L, no added breath sounds Abd: not distended, no tenderness Extremities: no edema, no signs of myxedema Neuro: AAO x3, Speech: normal, no facial droop, moving all 4 extremities Laboratory Tests 11/04/18 04/16/19 01/29/22 08:00 08:00 13:58 Calcium 11.3 H Ionized Calcium Albumin 4.0 N-Telopeptide X-linked 42 58 25-OH Vitamin D Total TSH Free T4 PTH Intact 143 H 05/26/22 11/26/22 06/02/23 11:10 14:18 10:15 Calcium 10.1 D Ionized Calcium Albumin 4.1 N-Telopeptide X-linked 25-OH Vitamin D Total TSH 2.70 Free T4 1.05 PTH Intact 58 06/03/24 06/06/24 12:04 09:15 Calcium 10.0 Ionized Calcium 5.3 Albumin 4.0 N-Telopeptide X-linked 15 25-OH Vitamin D Total 59.1 TSH Free T4 PTH Intact Laboratory Tests 10/07/24 10/08/24 11:17 09:04 Sodium 145 Potassium 4.2 Creatinine 1.00 Estimated GFR 53 Random Glucose 87 Calcium 9.7 9.6 Ionized Calcium 5.2 Alk Phos Bone Specific 11.1 Albumin 4.2 Collgn I C-Telopeptide 142 25-OH Vitamin D Total 63.1 TSH 2.63 Free T4 1.11 PTH Intact 53.3 Laboratory Tests 10/07/24 10/08/24 05/31/25 11:17 09:04 10:37 Creatinine 1.00 Estimated GFR 53 Calcium 9.6 Ionized Calcium 5.4 Phosphorus 3.7 Alk Phos Bone Specific 11.0 Albumin 4.3 Collgn I C-Telopeptide 142 25-OH Vitamin D Total 66.5 TSH 2.80 PTH Intact 37.0 Ur 24 Hour Volume Ur Creatinine mg/dL Ur Creatinine 24 Hour Ur Calcium 24 Hr Calcium/Creat 24 Hr IgG Total 1094 IgA Total 246 IgM 144 06/02/25 06/02/25 07:00 08:08 Creatinine Estimated GFR Calcium Ionized Calcium Phosphorus Alk Phos Bone Specific Albumin Collgn I C-Telopeptide 92 25-OH Vitamin D Total TSH PTH Intact Ur 24 Hour Volume 2675 Ur Creatinine mg/dL 35.39 Ur Creatinine 24 Hour 0.9 L Ur Calcium 24 Hr 83 Calcium/Creat 24 Hr 84 IgG Total IgA Total IgM EXAMINATION: US THYROID 05/31/25 HISTORY: E04.2 - Nontoxic multinodular goiter TECHNIQUE: Real-time grayscale ultrasound imaging was performed and images were reviewed. COMPARISON: Comparison is made with the prior examination dated 06/23/2024. FINDINGS: SIZE: The right thyroid lobe measures 5.3 x 1.7 x 2.2 cm. The left thyroid lobe measures 4.4 x 1.9 x 1.9 cm. The isthmus measures 3 mm. FLOW: Flow to the gland is increased. ECHOGENICITY: The echotexture of the gland is heterogeneous. NODULES: Multiple bilateral thyroid nodules are identified as described below: Nodule #: 1 Location: Midportion of the right thyroid lobe measuring 2.7 x 1.3 x 1.8 cm (previously 2.7 x 1.4 x 1.9 cm). Shape: Wider than tall (0 points) Margins: Smooth (0 points) Echotexture: Isoechoic (1 point) Composition: Mixed (1 point) Calcifications: Punctate calcifications (3 points) Total points: 5 TIRADS: TR4: Moderately suspicious. Nodule #: 2 Location: Mid to lower pole of the right thyroid lobe measuring 1.0 x 0.4 x 1.0 cm (previously 0.8 x 0.3 x 1.1 cm). Shape: Wider than tall (0 points) Margins: Smooth (0 points) Echotexture: Isoechoic (1 point) Composition: Mixed (1 point) Calcifications: Punctate calcifications (3 points) Total points: 5 TIRADS: TR4: Moderately suspicious. Nodule #: 3 Location: Upper pole of the left thyroid lobe measuring 1.7 x 1.1 x 1.2 cm (previously 1.0 x 0.8 x 1.3 cm). Shape: Wider than tall (0 points) Margins: Smooth (0 points) Echotexture: Isoechoic (1 point) Composition: Solid (2 points) Calcifications: None (0 points) Total points: 3 TIRADS: TR3: Mildly suspicious. Nodule #: 4 Location: Midportion of the left thyroid lobe measuring 2.1 x 1.0 x 1.6 cm (previously 0.7 x 0.9 x 1.4 cm). Shape: Wider than tall (0 points) Margins: Smooth (0 points) Echotexture: Isoechoic (1 point) Composition: Solid (2 points) Calcifications: None (0 points) Total points: 3 TIRADS: TR3: Mildly suspicious. Nodule #: 5 Location: Lower pole of the left thyroid lobe measuring 0.9 x 0.5 x 1.0 cm (not seen previously). Shape: Wider than tall (0 points) Margins: Smooth (0 points) Echotexture: Isoechoic (1 point) Composition: Mixed (1 point) Calcifications: None (0 points) Total points: 2 TIRADS: TR2: Not suspicious US/US thyroid IMPRESSION: Multinodular thyroid gland. Nodule #1 above in the midportion of the right thyroid lobe meets ACR TI-RADS guidelines for ultrasound-guided fine-needle aspiration if this has not already been performed. The remaining nodules can be followed. US THYROID 06/25 CLINICAL INFORMATION: Nontoxic multinodular goiter, fine needle aspiration December 30, 2018. COMPARISON: 12/15/2022, 01/04/2020, 11/04/2018. TECHNIQUE: Linear transducer grayscale and color Doppler examination with attention to the region of the thyroid. FINDINGS: SIZE: Measurements of the thyroid lobes and nodules are given in sagittal, anteroposterior and transverse dimensions respectively. Right Thyroid Lobe: 5.0 x 1.5 x 2.5 cm, volume 9.6 mL. Parenchyma: The gland echotexture is heterogeneous. Thyroid vascularity is increased. Left Thyroid Lobe: 4.1 x 1.7 x 1.5 cm, volume 5.4 mL. Parenchyma: The gland echotexture is heterogeneous. Thyroid vascularity is increased. Isthmus: 0.2 cm in maximum AP dimension. Estimated total number of nodules greater than or equal to 1 cm: 4. 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 Location: Right mid. Size: 2.7 x 1.4 x 1.9 cm, volume 3.8 mm, previously 2.8 x 1.3 x 1.8 cm, volume of 3.4 mL. Nodule characteristics: Composition: Solid/almost completely solid (2). Echogenicity: Isoechoic (1). Shape: Not taller than wide (0). Margins: Ill-defined (0). Echogenic Foci: Punctate echogenic foci (3). ACR TI-RADS total points: 6, previously 6. ACR TI-RADS category: 4, previously 4. 2. Location: Right medial midpole. Size: 0.8 x 0.3 x 1.1 cm, volume 0.1 mm, previously 0.9 x 0.4 x 0.8 cm, volume 0.1 mL. Nodule characteristics: Composition: Solid/almost completely solid (2). Echogenicity: Isoechoic (1). Shape: Not taller than wide (0). Margins: Smooth (0). Echogenic Foci: None (0). ACR TI-RADS total points: 3, previously 3. ACR TI-RADS category: 3, previously 3. 3. Location: Left upper. Size: 1.1 x 0.8 x 1.0 cm, volume 0.5 mL, volume 1.6 x 1.2 x 1.0 cm, volume 1.0 mL mL. Nodule characteristics: Composition: Solid (2). Echogenicity: Isoechoic (1). Shape: Not taller than wide (0). Margins: Ill-defined (0). Echogenic Foci: Punctate echogenic foci (3). ACR TI-RADS total points: 6, previously 9. ACR TI-RADS category: 4, previously 5. 4. Location: Left mid. Size: 1.3 x 0.8 x 1.1 cm, volume 0.6 mm, previously 1.5 x 0.9 x 0.9 cm, volume 0.6 mL. Nodule characteristics: Composition: Solid/almost completely solid (2). Echogenicity: Isoechoic (1). Shape: Not taller than wide (0). Margins: Ill-defined (0). Echogenic Foci: Punctate echogenic foci (3). ACR TI-RADS total points: 6, previously 6. ACR TI-RADS category: 4, previously 4. 5. Location: Left lower. Size: 1.7 x 0.9 x 1.4 cm, volume 1.1 mL, previously 1.4 x 0.8 x 1.2 cm, volume 0.7 mL Nodule characteristics: Composition: Solid/almost completely solid (2). Echogenicity: Isoechoic (1). Shape: Not taller than wide (0). Margins: Smooth (0). Echogenic Foci: None (0). ACR TI-RADS total points: 3, previously 3. ACR TI-RADS category: 3, previously 3. NODES: No lymphadenopathy is seen in the tissue surrounding the thyroid gland. US/US thyroid IMPRESSION: Multinodular thyroid gland. 2.7 cm right mid TR4 nodule meets criteria for biopsy. Fine-needle aspiration recommended if not already performed. Additional thyroid nodules as detailed above for which annual surveillance is recommended. BONE DENSITOMETRY 06/25 CLINICAL INDICATION: Hyperparathyroidism. COMPARISON: Previous BD dated 03/18/2022 and baseline BD dated 09/16/2018. TECHNIQUE: Using a QUIQ DXA System (software version: 13.1) manufactured by [employer], dual-energy x-ray absorptiometry was performed of the lumbar spine, left hip, and left forearm radius 33%. The images are of good technical quality. Summary results are attached. FINDINGS: LEFT FEMUR, NECK: Current: BMD 0.634 g/cm2, Z-score -0.6, T-score -2.9, osteoporosis. Prior: BMD 0.623 g/cm2. Baseline: BMD 0.635 g/cm2. LEFT FEMUR, TOTAL: Current: BMD 0.570 g/cm2, Z-score -1.3, T-score -3.5, osteoporosis, 2.9% increase from previous, 1.2% increase from baseline (<5% change is not significant). Prior: BMD 0.554 g/cm2. Baseline: BMD 0.563 g/cm2. AP SPINE L1-L4: Current: BMD 0.855 g/cm2, Z-score -0.7, T-score -2.7, osteoporosis, 13.5% increase from previous, 8.4% increase from baseline (<5% change is not significant). Prior: BMD 0.753 g/cm2. Baseline: BMD 0.789 g/cm2. LEFT FOREARM RADIUS 33%: BMD 0.558 g/cm2, Z-score -0.7, T-score -3.6, osteoporosis, 6.5% increase from baseline (<5% change is not significant). Baseline: BMD 0.524 g/cm2. IDENTIFIED RISK FACTORS: Menopause, dementia, hyperparathyroidism. HISTORY OF FRACTURE: None listed. MEDICATIONS: Vitamin D. XR THORACIC SPINE 10/08/24 CLINICAL INFORMATION: Age-related osteoporosis without current pathological fracture M81.0. COMPARISON: None available TECHNIQUE: 3 views of the thoracic spine were obtained. FINDINGS: There are 12 rib-bearing thoracic vertebral bodies. Vertebral body heights are maintained. Intervertebral disc spaces are relatively preserved. Pedicles are intact. There is prominence of the left paraspinal soft tissues possibly indicating dilated thoracic aorta. XR/XR thoracic spine 2V IMPRESSION: Left paraspinal soft tissue prominence. Consider cross-sectional imaging correlation. Electronically signed by: Amadou Nobles MD 11/30/2024 09:57 AM EST RP XR HIP RIGHT 10/08/24 CLINICAL INFORMATION: Loss of height R29.890. COMPARISON: None available. TECHNIQUE: Two views of the right hip. FINDINGS: Mild axial cartilage space loss with hypertrophic lipping and buttressing of the femoral head neck junction. No displaced fracture or dislocation. Small sclerotic foci are seen within the right femoral neck and the right iliac bone. XR/XR hip RT min 2V IMPRESSION: Mild osteoarthritis of the right hip. Electronically signed by: Amadou Nobles MD 11/30/2024 09:50 AM EST RP XR LUMBOSACRAL SPINE 10/08/24 CLINICAL INFORMATION: Age-related osteoporosis without current pathological fracture M81.0. COMPARISON: None available. TECHNIQUE: 3 views of the lumbosacral spine. FINDINGS: The bones are osteopenic. There are 5 nonrib-bearing lumbar vertebral bodies. There is leftward curvature of the lumbar spine centered at L3-L4. Relative straightening of the lumbar lordosis. Vertebral body heights are maintained. Intervertebral disc spaces are relatively preserved. Ventral bridging osteophytes at L2-L3. Facet hypertrophy at L5-S1. Possible fusion of the superior sacroiliac joints. Atherosclerotic changes of the abdominal aorta. XR/XR lumbar spine 2-3V IMPRESSION: No acute abnormality. Electronically signed by: Amadou Nobles MD 11/30/2024 09:53 AM EST RP [facility] Medical History (Updated 10/07/24 @ 10:43 by Angelica Land MD) Loss of height Back pain Osteoporosis Multinodular goiter (nontoxic) Hyperparathyroidism Surgical History Hx of oral surgery History of back surgery Family History Father Diabetes Mother No problems noted. Social History Household Members: None Alcohol intake: never Patient Tobacco Use Status: Never used Tobacco Physical Exam Vital Signs: Last Vital Signs Pulse 68 07/05/25 13:55 BP 146/86 H 07/05/25 13:55 Pulse Ox 96 07/05/25 13:55 Oxygen Delivery Method Room Air 07/05/25 13:55 BMI result Body Mass Index 25.7 Assessment & Plan Assessment & Plan (1) Multinodular goiter (nontoxic): Code(s): E04.2 - Nontoxic multinodular goiter Category: Medical Plan: 84-year-old female with no family history of thyroid cancer, with no personal history of head or neck radiation who has had thyroid nodules at least since 2019. status post FNA of a left midpole nodule and right nodule 12/30/2018 with benign cytology. Normal TFTs from this year summer 2024 Ultrasound thyroid 05/31/2025, I reviewed the images myself which show right mid lobe nodule 2.7 cm TR 4 category remained stable in size. Right mid to lower pole 1 cm nodule TR 4 category also remained stable in size. The left superior nodule has increased in size but it is a TR 3 nodule which measures 1.7 cm in still does not meet criteria for biopsy. We will continue to monitor this. The left mid lobe nodule has also increased significantly in size to 2.1 cm in the largest dimension from 1.4 cm in the largest dimension previously, it is a TR 3 nodule. This likely the nodule that was biopsied in 2019 with benign cytology however now with significant increase in size, meets criteria for biopsy. A 0.9 cm left inferior pole TR 2 category nodule noted. 06/21/25: Status post FNA of the left mid 2.1 cm thyroid nodule which came back as nondiagnostic, Clare category 1, rare colloid and rare follicular cells seen with predominantly blood. I discussed with the patient and her son that nondiagnostic results yield a 5-20% risk of malignancy. At this point we have 2 options 1 would be to repeat the biopsy, and there is usually a 60-80% chance to get a diagnostic result on a 2nd try. Versus continuing with ultrasound surveillance. At this time they would like to proceed with the biopsy. Plan: -scheduled for repeat FNA of the left mid 2.1 cm thyroid nodule in about 3 months from the last 1 and follow up 2 weeks after to discuss results (2) Osteoporosis: Code(s): M81.0 - Age-related osteoporosis without current pathological fracture Category: Medical Qualifiers: Osteoporosis type: age-related Presence of current pathological fracture: without current pathological fracture Qualified Code(s): M81.0 - Age-related osteoporosis without current pathological fracture Plan: Patient with a history of primary hyperparathyroidism, status post left inferior parathyroidectomy in July [address] Eric Barth at [facility] who subsequently had resolution of hypercalcemia as well as normalization of her parathyroid hormone levels. She has been on Fosamax 70 mg weekly for over 5 years, however most recent bone density done in June 2024 still shows persistent osteoporosis with spine t score -2.7 ,13.7 %increase from 2022 in BMD , left femur nec k-2.9 and total femor -3.5 , 2.9 % increase from 2022 foraearm -3.6 , 6.5 % increase from baseline Unfortunately I do not think the Fosamax was stopped to allow for adequate bone accrual. She has had significant increase in bone density of the lumbar spine as well as the forearm, however bone density in the hip remained stable. Her urine NTX level is also low at 15 from June 2024. Labs 10/07/2024 showed CTX of 142, vitamin-D level 63.1, GFR 53, calcium 9.7, with albumin of 4.2, ionized calcium 5.2, bone specific alkaline phosphatase 11.1, PTH 53.3 Since her bone markers are consistent with suppressed resorption and given persistent osteoporosis we stopped Fosamax November 2024 to allow for more bone accrual subsequent to her parathyroidectomy. CTX remains low at 92 from April 2025. Secondary workup from June 2025 shows low 24 hour urine calcium levels indicating poor nutritional intake. Advised on increasing calcium intake. Given persistent osteoporosis, she would benefit from an anabolic agents such as Tymlos or Forteo or Evenity, though she has a history of colon cancer this does not usually have risk of bone metastasis and she does not have any history of radiation to her bones. Given history of hyperparathyroidism in the past, I would prefer Evenity in her case given bone density last in June 2024 showed severe osteoporosis with low T-scores such as-3.5 with a total femur-3.6 at the forearm.. After that would consider switching to Prolia after 1 year of therapy. Plan: -start Evenity monthly injections -continue vitamin-D 2000 units daily -she has minimal nutritional intake of calcium, advised about taking 2-3 servings of calcium daily , if she can not meet 2000 mg daily requirement she can supplement with 600 mg of calcium supplement - fall precautions discussed -30 minutes of walking encouraged daily Plan See above Orders: Orders US biopsy thyroid Today E04.2 - Nontoxic multinodular goiter Coding Level of Care Code Est Pt Level 3 (05226) Diagnoses Multinodular goiter (nontoxic) E04.2 Age-related osteoporosis without current pathological fracture M81.0 Osteoporosis type: age-related Presence of current pathological fracture: without current pathological fracture
--- OUTSIDE RECORDS SUMMARY | 2025-07-05 16:01 | XMS_ITS | Clinical Summary ---
Author Organization [facility] [address] [facility] Building Address [address] [place] [address] Phone Care Team Providers Care Resolution Rep Name Role Phone Milton Houser MD Primary Care Provider [phone] Allergies No known active allergies Medications donepeziL (ARICEPT) 10 mg tablet Take 1 tablet (10 mg total) by mouth at bedtime. 02/26/20 23 Active loratadine (CLARITIN) 10 mg tablet Take 1 Tab by mouth daily as needed for Allergies (or ear symptoms) for up to 360 days. 01/16/20 20 Active UNABLE TO FIND Misc. 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 DOMESTIC FREIGHT FORWARDER) Misc 1 Units by Does not apply [...] DAY. 90 tablet 1 02/28/20 25 Active calcium carbonate (CALCIUM ORAL) Take 600 mg by mouth 1 (one) time each day. Active Active Problems Problem Noted Date Diagnosed Date Postmenopausal bleeding 04/12/2025 Alzheimer's disease ([facility] V24, [facility] V28) 0 12/05/2024 History of colon cancer 10/11/2024 Assessment & Plan (04/27/2025 10:29 AM EDT): Pt declines further colonoscopies due to age Hx of parathyroidectomy 12/15/2022 Dermatochalasis of both eyelids 02/14/2021 Overview (08/05/2024): Skin overhanging upper lashes, visual field testing showing significant blockage, but patient declined to proceed with surgery; evaluated with Dr. Hilario at [facility] 02/14/2021 Insomnia 12/25/2019 Right knee pain 08/30/2017 Hyperparathyroidism ([facility] V24) 02/19/2017 Overview (08/05/2024): [facility], Dr. Kami Alan, declined surgical management Ongoing hypercalcemia and bone loss on sensipar and alendronate, has declined surgical management Vitamin D deficiency 10/29/2016 Overview (08/05/2024): PTH elevated Stable on 2000 IUs daily Hypertension 07/18/2016 Chronic gastritis 07/03/2016 Overview (08/05/2024): Upper endoscopy 2015 Hypercalcemia 06/11/2015 Iron deficiency anemia 06/11/2015 Mixed hyperlipidemia 06/11/2015 Osteoporosis 06/11/2015 Encounters Date Type Department Care Team Description 07/04/2025 3:30 PM EDT Office Visit Internal Medicine - [facility] [address] [facility] [address] Malena Roberts, MIHIR Primary hypertension (Primary Dx); Mixed hyperlipidemia; Hyperparathyroidism ([facility] V24); Osteoporosis, unspecified osteoporosis type, unspecified pathological fracture presence; History of iron deficiency anemia; Alzheimer's disease ([facility] V24, [facility] V28); History of colon cancer; Colonoscopy refused; Encounter for subsequent annual wellness visit (AWV) in Medicare patient 06/13/2025 Telephone Internal Medicine - [facility] [address] [place] [address] Meka Morgan MA 04/27/2025 10:10 AM EDT Consult Gastroenterology - [address] [place] [address] Janneth Vaz, MIHIR Pain at surgical incision (Primary Dx); History of colon cancer from Last 3 [...] tritis; COMMENT: Upper endoscopy 2015 Colon cancer (CMS/HCC V24, C MS/HCC V28) 07/03/2016 DX:Colon cancer (HCC); COMME NT: S/P right hemicolectomy 01/15/16 Iron [...] 9.6 oz) 07/04/2025 3:11 PM EDT Height 162.6 cm (5' 4 ) 04/27/2025 10:14 AM EDT Body Mass Index 24.99 04/27/2025 10:14 AM EDT Plan of Treatment Upcoming Encounters Date Type Department Care Team (Late st Contact Info) Description 01/02/2026 9:45 AM EST Office Visit Internal Medicine - [address] [address] Malena Roberts NP [address] [place] [phone] Health Maintenance Due Date Last Done Comments Hepatitis A Vaccines (1 of 2 - Risk 2-dose series) 1961 Zoster Vaccines (1 of 2) 1961 RSV Immunization Adult Patients (1 - 1-dose 75+ series) 2017 COVID-19 Vaccine ( season) 2025 04/17/2023, 08/18/2022, 12/09/2020, Additional history exists Influenza Vaccine (#1) 2025 09/18/2024, 2022 Colorectal Cancer Screening: Colonoscopy 08/09/2025 08/09/2020 Falls Risk Assessment 07/04/2026 07/04/2025, 025 Medicare Annual Wellness Visit 07/04/2026 07/04/2025 Social Influencers of Health Screening 07/04/2026 07/04/2025 Hypertension/CHF/CAD Annual BMP Blood Test 07/05/2026 07/05/2025, 09/20/2024, 06/29/2023 Cholesterol Screening (Lipid Panel) 07/05/2030 07/05/2025, 09/20/2024, 06/29/2023 Osteoporosis Screening (Bone Density Screening) 08/15/2031 08/15/2021 Pneumococcal Vaccine: 50+ Years Completed 03/21/2024 Depression Screening Completed 07/04/2025 DTaP,Tdap,and Td Vaccines Discontinued HIB Vaccines Aged [...] Procedure Name Priority Date/Time Associated Diagnosis Comments CBC WITH AUTO DIFFERENTIAL Routine 07/05/2025 8:46 AM EDT History of iron deficiency anemia LIPID PANEL WITH REFLEX TO DIRECT LDL Routine 07/05/2025 8:46 AM EDT Mixed hyperlipidemia COMPREHENSIVE METABOLIC PANEL Routine 07/05/2025 8:46 AM EDT Mixed hyperlipidemia CBC AND DIFFERENTIAL Routine 07/05/2025 8:46 AM EDT History of iron deficiency anemia EXTERNAL CLINICAL LAB 06/06/2025 EXTERNAL CLINICAL LAB 06/06/2025 EXTERNAL CLINICAL LAB 06/05/2025 EXTERNAL CLINICAL LAB 06/05/2025 EXTERNAL CLINICAL LAB 06/02/2025 EXTERNAL ULTRASOUND REPORT 05/31/2025 DXA BONE DENSITY STUDY 1+ SITS AXIAL SKEL Routine 08/15/2021 2:23 PM EDT Unspecified menopausal and perimenopausal disorder HM COLONOSCOPY Routine 08/09/2020 from Last 3 Months or Most Recently Relevant to Health Maintenance Results * Lipid panel with reflex to direct LDL (07/05/2025 8:46 AM EDT) Cholesterol 163 0 - 200 mg/dL LAB CHEMISTRY METHOD 07/05/2025 1:43 PM EDT [facility] Triglycerides 95 0 - 150 mg/dL LAB CHEMISTRY METHOD 07/05/2025 1:43 PM EDT [facility] HDL 70 >=40 mg/dL LAB CHEMISTRY METHOD 07/05/2025 1:43 PM EDT [facility] LDL Calculated 74 0 - 100 mg/dL LAB CHEMISTRY METHOD 07/05/2025 1:43 PM EDT [facility] Comment:Estimated LDL Calcul ated using equation: Total cholesterol - HDL cholesterol - (Triglycerides/5) VLDL Cholesterol Rafal 19 mg/dL LAB CHEMISTRY METHOD 07/05/2025 1:43 PM EDT [facility] Non HDL Chol. (LDL+VLDL) 93 <145 mg/dL LAB CHEMISTRY METHOD 07/05/2025 1:43 PM EDT [facility] Chol/HDL Ratio 2.3 0.0 - 4.4 LAB CHEMISTRY METHOD 07/05/2025 1:43 PM EDT [facility] Blood Venous blood specimen / Unknown Venipuncture / Unknown 07/05/2025 8:46 AM EDT 07/05/2025 8:46 AM EDT us Malena Roberts NP LAB BLOOD ORDERABLES Final Resul t [facility] [address] [place] [address], * (ABNORMAL) CBC auto differential (07/05/2025 8:46 AM EDT) WBC 7.4 4.8 - 10.8 K/mcL LAB HEMETOLOGY METHOD 07/05/2025 12:38 PM EDT [facility] RBC 4.10 3.80 - 4.80 M/mcL LAB HEMETOLOGY METHOD 07/05/2025 12:38 PM [facility] Hemoglobin 12.7 11.5 - 16.0 g/dL LAB HEMETOLOGY METHOD 07/05/2025 12:38 PM EDT [facility] Hematocrit 40.7 35.0 - 47.0 % LAB HEMETOLOGY METHOD 07/05/2025 12:38 PM T [facility] MCV 98.8(H) 79.0 - 98.0 FL LAB HEMETOLOGY METHOD 07/05/2025 12:38 PM T [facility] MCH 30.8 27.0 - 32.0 pcg LAB HEMETOLOGY METHOD 07/05/2025 12:38 PM EDT [facility] MCHC 31.2(L) 32.0 - 37.0 g/dL LAB HEMETOLOGY METHOD [facility]05[facility]25 [facility] RDW 13.2 11.0 - 15.0 % LAB HEMETOLOGY METHOD 07/05/2025 12:38 PM [facility] Platelets 248 130 - 400 K/mcL LAB HEMETOLOGY METHOD 07/05/2025 12:38 PM T [facility] MPV 9.6 7.0 - 11.0 FL LAB HEMETOLOGY METHOD 07/05/2025 12:38 PM [facility] NRBC 0.0 <1.0 % LAB HEMETOLOGY METHOD 07/05/2025 12:38 PM [facility] NRBC Absolute 0.00 <0.10 K/mcL LAB HEMETOLOGY METHOD 07/05/2025 12:38 PM [facility] Neutrophils Relative 55.5 % LAB HEMETOLOGY METHOD 07/05/2025 12:38 PM [facility] Lymphocytes Relative 29.4 % LAB HEMETOLOGY METHOD 07/05/2025 12:38 PM [facility] Monocytes Relative 8.1 % LAB HEMETOLOGY METHOD 07/05/2025 12:38 PM [facility] Eosinophils Relative 5.7 % LAB HEMETOLOGY METHOD 07/05/2025 12:38 PM [facility] Basophils Relative 0.9 % LAB HEMETOLOGY METHOD 07/05/2025 12:38 PM [facility] Immature Granulocytes Relative 0.4 % LAB HEMETOLOGY METHOD 07/05/2025 12:38 PM [facility] Neutrophils Absolute 4.11 1.50 - 7.00 K/mcL LAB HEMETOLOGY METHOD 07/05/2025 12:38 PM EDT [facility] Lymphocytes Absolute 2.18 1.00 - 5.00 K/[facility] HEMETOLOGY METHOD 07/05/2025 12:38 PM EDT [facility] Monocytes Absolute 0.60 0.20 - 1.00 K/[facility] HEMETOLOGY METHOD 07/05/2025 12:38 PM EDT [facility] Eosinophils Absolute 0.42 0.00 - 0.50 K/[facility] HEMETOLOGY METHOD 07/05/2025 12:38 PM EDT [facility] Basophils Absolute 0.07 0.00 - 0.20 K/[facility] HEMETOLOGY METHOD 07/05/2025 12:38 PM EDT [facility] Immature Granulocytes Absolute 0.03 0.00 - 0.03 K/[facility] HEMETOLOGY METHOD 07/05/2025 12:38 PM EDT [facility] Blood Venous blood specimen / Unknown Venipuncture / Unknown 07/05/2025 8:46 AM EDT 07/05/2025 8:46 AM EDT us Malnea Roberts NP LAB BLOOD ORDERABLES Final Resul t [facility] [address] [place] [address], * (ABNORMAL) Comprehensive metabolic panel (07/05/2025 8:46 AM EDT) Sodium 143 133 - 145 mmol/L LAB CHEMISTRY METHOD 07/05/2025 1:43 PM EDT [facility] Potassium 4.6 3.5 - 5.5 mmol/L LAB CHEMISTRY METHOD 07/05/2025 1:43 PM EDT [facility] Chloride 108 96 - 110 mmol/L LAB CHEMISTRY METHOD 07/05/2025 1:43 PM EDT [facility] CO2 30 21 - 32 mmol/L LAB CHEMISTRY METHOD 07/05/2025 1:43 PM [facility] Anion Gap 5 3 - 11 LAB CHEMISTRY METHOD 07/05/2025 1:43 PM [facility] Glucose 85 70 - 100 mg/dL LAB CHEMISTRY METHOD 07/05/2025 1:43 PM [facility] BUN 18 5 - 25 mg/dL LAB CHEMISTRY METHOD 07/05/2025 1:43 PM [facility] Creatinine 1.04 0.50 - 1.10 mg/dL LAB CHEMISTRY METHOD 07/05/2025 1:43 PM [facility] eGFR 53(L) >=60 mL/min/1. 73m2 LAB CHEMISTRY METHOD 07/05/2025 1:43 PM [facility] Comment:Calculation based on the Chronic Kidney Disease Epidemiology Collaboration (CKD-EPI) equation refit without adjustment for race. BUN/Creatinine Ratio 17.3 LAB CHEMISTRY METHOD 07/05/2025 1:43 PM [facility] Calcium 9.6 8.5 - 10.5 mg/dL LAB CHEMISTRY METHOD 07/05/2025 1:43 PM [facility] AST (SGOT) 24 10 - 42 unit/L LAB CHEMISTRY METHOD 07/05/2025 1:43 PM [facility] ALT (SGPT) 22 10 - 60 unit/L LAB CHEMISTRY METHOD 07/05/2025 1:43 PM [facility] Alkaline Phosphatase 74 42 - 121 unit/L LAB CHEMISTRY METHOD 07/05/2025 1:43 PM [facility] Total Protein 6.6 6.0 - 8.0 g/dL LAB CHEMISTRY METHOD 07/05/2025 1:43 PM [facility] Albumin 3.6 3.2 - 5.0 g/dL LAB CHEMISTRY METHOD 07/05/2025 1:43 PM EDT [facility] Total Bilirubin 0.5 0.0 - 1.4 mg/dL LAB CHEMISTRY METHOD 07/05/2025 1:43 PM EDT [facility] Blood Venous blood specimen / Unknown Venipuncture / Unknown 07/05/2025 8:46 AM EDT 07/05/2025 8:46 AM EDT us Malena Roberts NP LAB BLOOD ORDERABLES Final Resul t [facility] [address] [place] [address], [place] [phone] * External clinical lab (06/06/2025) Only the most recent of5 resultswithin the time period is included. us Provider [facility] LAB BLOOD ORDERABLES Fin al Result * External Ultrasound Report (05/31/2025) Anatomical Region Laterality Modality Ultrasound us Provider [facility] IMG US PROCEDURES Final Result * DXA BONE DENSITY STUDY 1+ SITS [...] should be classified as having osteoporosis. [facility] Department of Internal Medicine recommends using [...] [place] should beclassified as having osteoporosis. [facility] Department of Internal Medicine recommendsusing National [...] Insurance MEDICAID - [place] [address] Care Teams Resolution Rep Relationship Specialty Start Date End Date Milton Houser MD [facility] [place] [address] PCP - General Internal Medicine 09/14/24
--- OUTSIDE RECORDS SUMMARY | 2025-07-05 16:01 | XMS_ITS | Encounter Summary ---
Author Organization [facility] Address [address] [place] [address] Phone Care Team Providers Care Cocktail Server Name Role Phone Jodie Holden MD Primary Care Pro vider Milton Houser MD Primary Care Provider [phone] Encounter Details Date Type Department Care Team (Late st Contact Info) Description 05/20/2022 Procedure Pass [facility] [address] [place] [address] Social History Tobacco Use Types Packs/Day Years [...] Care Team (Late st Contact Info) Description 07/25/2025 1:20 PM EDT Procedure visit [facility] [address] [place] [address] Gonzales Chappell MD, PhD [address] [facility] [place] [address] [email or web address] 01/18/2026 11:00 AM EDT Office Visit [facility] Department of Neurology [address] [place] [address] Mook Delgadillo PA-C [address] [place] [address] [email or web address] documented as of this encounter Visit Diagnoses Not on filedocumented in this encounter Care Teams Cocktail Server Relationship Specialty Start Date End Date Jodie Holden MD [address] [place] [address] PCP - General Internal Medicine 11/11/19 10/20/23 Milton Houser MD [address] [place] [address] PCP - General Internal Medicine 10/21/23 documented as of this encounter Additional Source Comments The information contained in this document represents components of the legal health record. It is not the complete legal health record.[facility]
--- OUTSIDE RECORDS SUMMARY | 2025-07-05 16:01 | XMS_ITS | Clinical Summary ---
Author Organization [facility] Address [address] [place] [address] [place] [phone] Phone Care Team Providers Care Digital Imager Name Role Phone Milton Houser MD Primary Care Provider [phone] Allergies No known active allergies Medications amLODIPine (NORVASC) 2.5 MG tablet Take 5 mg by mouth. 09/11/2020 Active atorvastatin (LIPITOR) 10 MG tablet Take 1 tablet by mouth daily. 07/21/2022 Active memantine (NAMENDA) 10 MG tablet TAKE 1 TABLET BY MOUTH EVERY DAY 90 tablet 1 12/12/2024 Active donepeziL (ARICEPT) 10 MG tablet Take 1 tablet (10 mg total) by mouth nightly at bedtime. 90 tablet 3 02/28/2025 Active Active Problems Problem Noted Date Diagnosed Date Alzheimer's disease 12/05/2024 Encounters Date Type Department Care Team Description 06/29/2025 11:30 AM EDT Office Visit [facility] Department of Neurology [address] [place] [address] Mook Delgadillo PA-C Alzheimer's disease (Primary Dx); Memory loss 06/13/2025 1:30 PM EDT Procedure visit [facility] [address] [place] [address] Gonzales Chappell MD, PhD Exudative age-related macular degeneration of right eye with active choroidal neovascularization (Primary Dx) 04/26/2025 10:40 AM EDT Procedure visit [facility] Retina [facility] [address] [place] [address] Gonzales Chappell MD, PhD Exudative age-related macular degeneration of right eye with active choroidal neovascularization (Primary Dx) from Last 3 Months Family History Medical History Relation Comments Diabetes Neg Hx Glaucoma Neg Hx Macular degeneration Neg Hx Social History Tobacco Use Types Packs/Day Years Used Date Smoking Tobacco: Never Smokeless Tobacco: Never Tobacco Cessation:Counseling Given: Not Answered Alcohol Use Standard Drinks/Week Comments Never 0 (1 standard drink = 0.6 oz pur e alcohol) Education Answer Date Recorded Are you interested in more education? Not on valerie e 02/27/2023 Are you concerned about learning? Not on file 02/27/2023 No 02/27/2023 No 02/27/2023 Digital Access Answer Date Recorded No 03/27/2023 No 03/27/2023 Reliable internet access at home? Not on file 03/27/2023 Device with a working camera? Not on file Intimate Partner Violence Answer Date R ecorded Are you denied basic needs s uch as food, clothing, or medical care? No 12/05/2024 In the past 12 months have y ou been in a relationship with a person who hurts, threatens, or tries to control you? No 12/05/2024 Are you denied basic needs s uch as food, clothing, or medical care? No 12/05/2024 In the past 12 months have y ou been in a relationship with a person who hurts, threatens, or tries to control you? No 12/05/2024 Comments Unknown Sex and Gender Information Value Date Recorded Sex Assigned at Not on file Legal Sex Female 2:48 PM EST Gender Identity Not on file Sexual Orientation Not on file Last Filed Vital Signs Vital Sign Reading Time Taken Comments Blood Pressure 153/74 12/05/2024 1:01 PM EST Pulse 73 12/05/2024 1:01 PM EST Temperature 36.7 C (98 F) 12/05/2024 1:01 PM EST Respiratory Rate 16 03/15/2024 11:32 AM EDT Oxygen Saturation 96% 12/05/2024 1:01 PM EST Inhaled Oxygen Concentration - - Weight 67.3 kg (148 lb 6.4 oz) 12/05/2024 1:01 P M EST Height 162.6 cm (5' 4 ) 03/15/2024 11:32 AM EDT Body Mass Index 25.47 03/15/2024 11:32 AM EDT Plan of Treatment Upcoming Encounters Date Type Department Care Team (Late st Contact Info) Description 07/25/2025 1:20 PM EDT Procedure visit [facility] [address] [place] [address] Gonzales Chappell MD, PhD [address] [facility] [place] [address] [email or web address] 01/18/2026 11:00 AM EDT [facility] Visit [facility] Department of Neurology [address] [place] [address] Mook Delgadillo PA-C [address] [place] [address] [email or web address] Health Maintenance Due Date Last Done Comments Adult Td,Tdap Booster 1940 ZOSTER VACCINES (1 of 2) 02/08/1992 OSTEOPOROSIS SCREENING INITIAL (ONE-TIME) 2007 RSV VACCINE (1 - 1-dose 75+ series) 2017 INFLUENZA VACCINE (#1) 2025 09/18/2024, 2022 COVID-19 VACCINE ( season) 2025 04/17/2023, 08/18/2022, 12/09/2020, Additional history exists DEPRESSION SCREENING 12/05/2025 12/05/2024 PNEUMOCOCCAL VACCINES (50+ years) Completed 03/21/2024 HEPATITIS A VACCINES Aged Out No long er eligible based on patient's age to complete this topic HIB VACCINES Aged Out No longer eligi ble based on patient's age to complete this topic MENINGOCOCCAL VACCINES (ACWY) Aged Out No longer eligible based on patient's age to complete this topic MENINGOCOCCAL VACCINES (B) Aged Out N o longer eligible based on patient's age to complete this topic Medical Devices Not on file Procedures Procedure Name Priority Date/Time Associated Diagnosis Comments OCT, RETINA - OU - BOTH EYES Routine 06/13/2025 2:20 PM EDT Exudative age-related macular degeneration of right eye with active choroidal neovascularization INTRAVITREAL INJECTION, PHARMACOLOGIC AGENT - OD - RIGHT EYE Routine 06/13/2025 2:20 PM EDT Exudative age-related macular degeneration of right eye with active choroidal neovascularization INTRAVITREAL INJECTION, PHARMACOLOGIC AGENT - OD - RIGHT EYE Routine 04/26/2025 12:28 PM EDT Exudative age-related macular degeneration of right eye with active choroidal neovascularization OCT, RETINA - OU - BOTH EYES Routine 04/26/2025 11:58 AM EDT Exudative age-related macular degeneration of right eye with active choroidal neovascularization from Last 3 Months Results * OCT, RETINA - OU - BOTH EYES - [place] (06/13/2025 2:20 PM EDT) Narrative YADIRA - 06/13/2025 2:20 PM EDT Right Eye Quality was good. Left Eye Quality was good. Disease has: been stable. Notes OD: PED, SRF inferotemporally, mild IRF nasally that is stable, outer retinal attenuation - stable nasal IRF, increased SRF OS: Scattered drusen, shallow PED x2 superiorly, stable Gonzales Chappell MD, PhD OPHTHALMOLOGY IMAGING F inal Result SMIIY * Intravitreal Injection, Pharmacologic Agent - OD - Right Eye (06/13/2025 2:20 PM EDT) Other Narrative Gonzales Chappell MD, PhD - 06/13/2025 2:20 PM EDT Pre-Procedure Fall Risk Assessment: age >65 (10 pts), language barrier (5 pts). [facility] Right Eye sc: 20/100. Ph sc: NI. Left Eye sc: 20/80. Ph sc: NI. Pre Procedure Drops to Injected Eye Anesthetic Medication: Proparacaine 0.5%. Injection Information Timeout performed: Yes. Anesthetic Medication: Proparacaine 0.5%. Anesthetic Medication, time: 2:17 PM. Antiseptic Medication Povidone Iodine. Antiseptic Medication, Time: 2:19 PM. Injection Medication: 5.7 mg aflibercept 8 mg/0.07 mL Route: Intravitreal, Site: Right Eye ND: [id number], Lot: [id number], Expiration date: 10/01/2025, Waste: 0.0201 mL Post-Procedure Pain Assessment: 0. Fall Risk Reassessment: age >65 (10 pts), language barrier (5 pts). Notes Choroidal neovascular membrane right eye us Gonzales Cahppell MD, PhD OPHTHALMOLOGY PROCEDURE S Final Result * Intravitreal Injection, Pharmacologic Agent - OD - Right Eye (04/26/2025 12:28 PM EDT) Other Narrative Gonzales Chappell MD, PhD - 04/26/2025 12:28 PM EDT VA Right Eye sc: 20/60. Ph sc: NI. Left Eye sc: 20/60. Ph sc: NI. Injection Information Timeout performed: Yes. Anesthetic Medication, time: 12:08 PM. Antiseptic Medication, Time: 12:08 PM. Antibiotic Medication, time: 12:08 PM. Injection Medication: 1.25 mg bevacizumab 1.25 mg/0.05 mL Route: Intravitreal, Site: Right Eye ND: [id number], Lot: [id number], Expiration date: 07/27/2025, Waste: 0 mL Post-Procedure Pain Assessment: 0. Fall Risk Reassessment: age >65 (10 pts). Notes Choroidal neovascular membrane right eye us Gonzales Chappell MD, PhD OPHTHALMOLOGY PROCEDURE S Final Result * OCT, RETINA - OU - BOTH EYES - [place]; Retina (04/26/2025 11:58 AM EDT) Narrative YADIRA - 04/26/2025 12:28 PM EDT Right Eye Quality was good. Left Eye Quality was good. Disease has: been stable. Notes OD: PED, recurrent SRF temporally, mild IRF nasally that is stable, outer retinal attenuation - sl worse nasal IRF, improved SRF OS: Scattered drusen, shallow PED x2 superiorly, stable Gonzales Chappell MD, PhD OPHTHALMOLOGY IMAGING F inal Result HARMONY from Last 3 Months Insurance MEDICARE REPLACEMENT MEDICARE REPLACEMENT [facility] MEDICARE REPLACEMENT MEDICARE REPLACEMENT MEDICARE REPLACEMENT MEDICARE REPLACEMENT MEDICARE REPLACEMENT MEDICARE REPLACEMENT MEDICARE REPLACEMENT Care Teams Digital Imager Relationship Specialty Start Date End Date Milton Houser MD [address] [place] [phone] PCP - General Internal Medicine 10/21/23 Additional Source Comments The information contained in this document represents components of the legal health record. It is not the complete legal health record.[facility]
== END 2025-07-05 14:23 | disposition home or self-care (01) ==
LOC: HO.ENCR 13:52
PROVIDERS: PCP Internal Medicine; Visit Provider Student in an Organized Health Care Education/Training Program
DX: E04.2 Nontoxic multinodular goiter (principal); M81.0 Age-related osteoporosis without current pathological fracture
CPT/HCPCS: 99213

== ENCOUNTER → 2025-07-05 13:52 | Outpatient (BNVA) | payer MEDICARE, SELFPAY | PROVIDERS: PCP Internal Medicine; Visit Provider Student in an Organized Health Care Education/Training Program | DX: E04.2 Nontoxic multinodular goiter (principal); M81.0 Age-related osteoporosis without current pathological fracture | CPT/HCPCS: 99212 ==

== ENCOUNTER 2025-07-12 09:43 | Outpatient (AMB) | payer MEDICARE, SELFPAY ==
--- NOTE | 2025-07-12 10:07 | AM.OFFVISNUR ---
Intake Visit Reasons: Evenity #1 Allergies No Known Allergies Allergy (Verified 07/05/25 14:01) Office Meds romosozumab-aqqg 210 mg/2.34 mL(105 mg/1.17 mL x2)subcutaneous syringe Performing Provider: Angelica Land MD Performing Location: [facility] Endocrinology Administered by: Jacque Bartholomew RN on 07/12/25 10:07 Dose Route Admin Location Dispensed Lot Number Expiration Date [facility] Loss Prevention Lead 210 mg subcut bilateral upper arms 2.34 mL [id number] 10/01/27 01323-230-02 AMGEN Total Dispensed Waste 2.34 mL 0 % Comments: pt accompanied by son who interpreted visit. Pt declined mitering machine operator. Pt tolerated injection well. Advised that given this is her first injection we will have her stay for 15 minutes following injection per protocol. I advised pt she will remain on vitamin D and calcium while on this medication and to let her dentist know she is on this medication. I advised her to call the office if she experiences any adverse reactions or side effects site as site reactions or joint pains. All questions were answered and there are no further questions at this time. Assessment & Plan Assessment & Plan Orders: Orders AMB Romosozumab Injection Patient Supplied Today M81.0 - Age-related osteoporosis without current pathological fracture Coding
--- OUTSIDE RECORDS SUMMARY | 2025-07-12 11:43 | XMS_ITS | Encounter Summary ---
Author Organization [facility] Address [address] [place] [address] Phone Care Team Providers Care Trust And Estates Paralegal Name Role Phone Jodie Holden MD Primary Care Pro vider Milton Houser MD Primary Care Provider [phone] Encounter Details Date Type Department Care Team (Late st Contact Info) Description 05/20/2022 Procedure Pass [facility] [address] [place] [address] Social History Tobacco Use Types Packs/Day Years [...] Description 07/25/2025 1:20 PM EDT Procedure visit [facility] [address] [place] [address] Gonzales Chappell MD, PhD [address] [place] [address] [email or web address] 01/18/2026 11:00 AM EDT Office Visit [facility] Department of Neurology [address] [place] [address] Mook Delgadillo PA-C [address] [place] [address] [email or web address] documented as of this encounter Visit Diagnoses Not on filedocumented in this encounter Care Teams Trust And Estates Paralegal Relationship Specialty Start Date End Date Jodie Holden MD [address] [place] [address] PCP - General Internal Medicine 11/11/19 10/20/23 Milton Houser MD [address] [place] [phone] PCP - General Internal Medicine 10/21/23 documented as of this encounter Additional Source Comments The information contained in this document represents components of the legal health record. It is not the complete legal health record.[facility]
--- OUTSIDE RECORDS SUMMARY | 2025-07-12 11:43 | XMS_ITS | Clinical Summary ---
Author Organization [facility] Address [address] [place] [address] [address] [place] [address] Phone Care Team Providers Care Cad Technician Name Role Phone Milton Houser MD Primary Care Provider [phone] Allergies No known active allergies Medications amLODIPine [...] Description 06/29/2025 11:30 AM EDT Office Visit [facility] Department of Neurology [address] [place] [address] Mook Delgadillo PA-C Alzheimer's disease (Primary Dx); Memory loss 06/13/2025 1:30 PM EDT Procedure visit [facility] [address] [place] [address] Gonzales Chappell MD, PhD Exudative age-related macular degeneration of right eye with active choroidal neovascularization (Primary Dx) 04/26/2025 10:40 AM EDT Procedure visit [facility] [address] [place] [address] Gonzales Chappell MD, PhD Exudative age-related macular [...] Description 07/25/2025 1:20 PM EDT Procedure visit [facility] [address] [facility] [address] [place] [address] Gonzales Chappell MD, PhD [address] [facility] [address] [email or web address] 01/18/2026 11:00 AM EDT Office Visit [facility] Department of Neurology [address] [place] [address] Mook Delgadillo PA-C [address] [place] [address] [email or web address] Health Maintenance Due Date Last Done Comments [...] RETINA - OU - BOTH EYES - [place] (06/13/2025 2:20 PM EDT) Narrative YADIRA - 06/13/2025 2:20 PM EDT Right Eye Quality was good. Left Eye Quality was good. Disease has: been stable. Notes OD: PED, SRF inferotemporally, mild IRF nasally that is stable, outer retinal attenuation - stable nasal IRF, increased SRF OS: Scattered drusen, shallow PED x2 superiorly, stable Gonzales Chappell MD, PhD OPHTHALMOLOGY IMAGING F inal Result SIMIY * Intravitreal Injection, Pharmacologic Agent - OD [...] mL Route: Intravitreal, Site: Right Eye ND: [id number], Lot: [id number], Expiration date: 10/01/2025, Waste: 0.0201 mL Post-Procedure [...] mL Route: Intravitreal, Site: Right Eye ND: [id number], Lot: [id number], Expiration date: 07/27/2025, Waste: 0 mL Post-Procedure Pain Assessment: 0. Fall Risk Reassessment: age >65 (10 pts). Notes Choroidal neovascular membrane right eye us Gonzales Chappell MD, PhD OPHTHALMOLOGY PROCEDURE S Final Result * OCT, RETINA - OU - BOTH EYES - [place]; Retina (04/26/2025 11:58 AM EDT) Narrative YADIRA - 04/26/2025 12:28 PM EDT Right Eye Quality was good. Left Eye Quality was good. Disease has: been stable. Notes OD: PED, recurrent SRF temporally, mild IRF nasally that is stable, outer retinal attenuation - sl worse nasal IRF, improved SRF OS: Scattered drusen, shallow PED x2 superiorly, stable us Gonzales Chappell MD, PhD OPHTHALMOLOGY IMAGING F inal Result HARMONY from Last 3 Months Insurance DUAL MEDICARE REPLACEMENT DUAL MEDICARE REPLACEMENT [facility] DUAL MEDICARE REPLACEMENT DUAL MEDICARE REPLACEMENT DUAL MEDICARE [place] [address] [place] [address] DUAL MEDICARE REPLACEMENT DUAL MEDICARE REPLACEMENT DUAL MEDICARE REPLACEMENT DUAL MEDICARE REPLACEMENT Care Teams Cad Technician Relationship Specialty Start Date End Date Milton Houser MD [address] [place] [address] PCP - General Internal Medicine 10/21/23 Additional Source Comments The information contained in this document represents components of the legal health record. It is not the complete legal health record.[facility]
== END 2025-07-12 10:30 | disposition home or self-care (01) ==
LOC: HO.ENCR 09:48
PROVIDERS: PCP Internal Medicine; Visit Provider Student in an Organized Health Care Education/Training Program
DX: M81.0 Age-related osteoporosis without current pathological fracture (principal)

== ENCOUNTER → 2025-07-12 09:43 | Outpatient (BNVA) | payer MEDICARE, SELFPAY | PROVIDERS: PCP Internal Medicine; Visit Provider Student in an Organized Health Care Education/Training Program | DX: M81.0 Age-related osteoporosis without current pathological fracture (principal) | CPT/HCPCS: 96372; J3111 ==

== ENCOUNTER 2025-08-09 10:40 | Outpatient (AMB) | payer MEDICARE, SELFPAY ==
--- NOTE | 2025-08-09 11:31 | AM.OFFVISNUR ---
Intake Visit Reasons: Evenity #2 Allergies No Known Allergies Allergy (Verified 07/05/25 14:01) Office Meds romosozumab-aqqg 210 mg/2.34 mL(105 mg/1.17 mL x2)subcutaneous syringe Performing Provider: Angelica Land MD Performing Location: [facility] Administered by: Jacque Bartholomew RN on 08/09/25 11:31 Dose Route Admin Location Dispensed Lot Number Expiration Date [facility] Brush Head Maker 210 mg subcut bilateral upper arms 2.34 mL [id number] 10/01/27 63375-870-70 AMGEN Total Dispensed Waste 2.34 mL 0 % Comments: Pt accompanied by son who interpreted visit. Pt declined therapeutic strategy lead. No adverse reactions reported from previous injection. Pt tolerated injection well. No further questions at this time. Assessment & Plan Assessment & Plan Orders: Orders AMB Romosozumab Injection Patient Supplied Today M81.0 - Age-related osteoporosis without current pathological fracture Coding
== END 2025-08-09 11:30 | disposition home or self-care (01) ==
LOC: HO.ENCR 10:41
PROVIDERS: PCP Internal Medicine; Visit Provider Student in an Organized Health Care Education/Training Program
DX: M81.0 Age-related osteoporosis without current pathological fracture (principal)

== ENCOUNTER → 2025-08-09 10:40 | Outpatient (BNVA) | payer MEDICARE, SELFPAY | PROVIDERS: PCP Internal Medicine; Visit Provider Student in an Organized Health Care Education/Training Program | DX: M81.0 Age-related osteoporosis without current pathological fracture (principal); Z79.620 Long term (current) use of immunosuppressive biologic | CPT/HCPCS: 96372; J3111 ==

== ENCOUNTER 2025-08-30 08:50 | Outpatient (REF) | payer MEDICARE, SELFPAY ==
--- OUTSIDE RECORDS SUMMARY | 2025-08-30 09:44 | XMS_ITS | Clinical Summary ---
Author Organization [facility] [address] [facility] Address [address] [place] [address] Phone Care Team Providers Care Atg Architect Name Role Phone Milton Houser MD Primary Care Provider [phone] Allergies No known active allergies Medications donepeziL (ARICEPT) 10 mg tablet Take 1 tablet (10 mg total) by mouth at bedtime. 023 Active loratadine (CLARITIN) 10 mg tablet Take 1 Tab by mouth daily as needed for Allergies (or ear symptoms) for up to 360 days. 020 Active UNABLE TO FIND Misc. 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 CHARGE OUT CLERK) Misc 1 Units by Does not apply route See Admin Instructions. Use to exercise legs twice daily for leg strengthening 019 Active memantine (NAMENDA) 10 mg tablet Take 1 tablet (10 mg total) by mouth 1 (one) time each day. 024 Active calcium carbonate (CALCIUM ORAL) Take 600 mg by mouth 1 (one) time each day. Active cholecalciferol (VITAMIN D-3) 25 mcg (1,000 unit) tablet TAKE 1 TABLET BY MOUTH TWICE A DAY 180 tablet 1 025 Active amLODIPine (NORVASC) 5 mg tabletIndicatio ns:Primary hypertension TAKE 1 TABLET BY MOUTH EVERY DAY 90 tablet 1 025 Active atorvastatin (LIPITOR) 10 mg tabletIndicatio ns:Hypercholest erolemia TAKE 1 TABLET BY MOUTH EVERY DAY 90 tablet 1 025 Active amLODIPine (NORVASC) 5 mg tabletIndicatio ns:Primary hypertension TAKE 1 TABLET BY MOUTH 1 TIME EACH DAY. 90 tablet 1 025 2024 Discontinued atorvastatin (LIPITOR) 10 mg tabletIndicatio ns:Hypercholest erolemia TAKE 1 TABLET BY MOUTH 1 TIME EACH DAY. 90 tablet 1 025 2024 Discontinued Active Problems Problem Noted Date Diagnosed Date Postmenopausal bleeding 04/12/2025 Alzheimer's disease ([facility] V24, [facility] V28) 0 12/05/2024 History of colon cancer 10/11/2024 Assessment & Plan (04/27/2025 10:29 AM EDT): Pt declines further colonoscopies due to age Hx of parathyroidectomy 12/15/2022 Dermatochalasis of both eyelids 02/14/2021 Overview (08/05/2024): Skin overhanging upper lashes, visual field testing showing significant blockage, but patient declined to proceed with surgery; evaluated with Dr. Hilario at [facility] 02/14/2021 Insomnia 12/25/2019 Right knee pain 08/30/2017 Hyperparathyroidism ([facility] V24) 02/19/2017 Overview (08/05/2024): [facility], Dr. Kami Alan, declined surgical management [...] Office Visit [facility] [address] [place] [phone] Malena Roberts NP Primary hypertension (Primary Dx); Mixed hyperlipidemia; Hyperparathyroidism ([facility] V24); Osteoporosis, unspecified osteoporosis type, unspecified pathological fracture presence; History of iron deficiency anemia; Alzheimer's disease ([facility]/HCC V24, [facility] V28); History of colon cancer; Colonoscopy refused; Encounter for subsequent annual wellness visit (AWV) in Medicare patient 06/13/2025 Telephone Internal Medicine - [facility] [address] [facility] [place] [phone] Meka Morgan [place] from Last 3 Months Immunizations Immunization Administration Dates Next Due Influenza, Unspecified 09/18/2024 [...] 07/03/2016 DX:Chronic gas tritis; COMMENT: Upper endoscopy 2016 Colon cancer ([facility]/HCC V24, [facility] [place]/HCC V28) 07/03/2016 DX:Colon cancer (HCC); COMME NT: [...] Date Recorded What is your living situation? Unrecognized valu e 07/04/2025 Comments No Sex and Gender Information [...] AM EST Office Visit [facility] [address] [facility] [place] [phone] Malena Roberts, MIHIR [address] [place] [address] Health Maintenance Due Date Last Done Comments Hepatitis A Vaccines (1 of 2 - Risk 2-dose series) 1961 Zoster Vaccines (1 of 2) 1961 RSV Immunization Adult Patients (1 - 1-dose 75+ series) 2017 COVID-19 Vaccine ( - season) 2025 04/17/2023, 08/18/2022, 12/09/2020, Additional history [...] LAB CHEMISTRY METHOD 07/05/2025 1:43 PM EDT [facility] Triglycerides 95 0 - 150 mg/dL LAB CHEMISTRY METHOD 07/05/2025 1:43 PM EDT [facility] HDL 70 >=40 mg/dL LAB CHEMISTRY METHOD 07/05/2025 1:43 PM EDT [facility] LDL Calculated 74 0 - 100 mg/dL LAB CHEMISTRY METHOD 07/05/2025 1:43 PM EDT [facility] Comment:Estimated LDL Calcul ated using equation: Total cholesterol - HDL cholesterol - (Triglycerides/5) VLDL Cholesterol Rafal 19 mg/dL LAB CHEMISTRY METHOD 07/05/2025 1:43 PM EDT [facility] Non HDL Chol. (LDL+VLDL) 93 <145 mg/dL LAB CHEMISTRY METHOD 07/05/2025 1:43 PM EDT [facility] Chol/HDL Ratio 2.3 0.0 - 4.4 LAB CHEMISTRY METHOD 07/05/2025 1:43 PM EDT [facility] Blood Venous blood specimen / Unknown Venipuncture / Unknown 07/05/2025 8:46 AM EDT 07/05/2025 8:46 AM EDT us Malena Roberts NP LAB BLOOD ORDERABLES Final Resul t [facility] [address] [place] [address], * (ABNORMAL) CBC auto differential (07/05/2025 8:46 AM EDT) WBC 7.4 4.8 - 10.8 K/[facility] LAB HEMETOLOGY METHOD 07/05/2025 12:38 PM EDT [facility] RBC 4.10 3.80 - 4.80 M/[facility] LAB HEMETOLOGY METHOD 07/05/2025 12:38 PM EDT [facility] Hemoglobin 12.7 11.5 - 16.0 g/dL LAB HEMETOLOGY METHOD 07/05/2025 12:38 PM EDT [facility] Hematocrit 40.7 35.0 - 47.0 % LAB HEMETOLOGY METHOD 07/05/2025 12:38 PM EDT [facility] MCV 98.8(H) 79.0 - 98.0 FL LAB HEMETOLOGY METHOD 07/05/2025 12:38 PM EDT [facility] MCH 30.8 27.0 - 32.0 pcg LAB HEMETOLOGY METHOD 07/05/2025 12:38 PM EDT [facility] MCHC 31.2(L) 32.0 - 37.0 g/dL LAB HEMETOLOGY METHOD 07/05/2025 12:38 PM [facility] RDW 13.2 11.0 - 15.0 % LAB HEMETOLOGY METHOD 07/05/2025 12:38 PM EDT [facility] Platelets 248 130 - 400 K/mcL LAB HEMETOLOGY METHOD 07/05/2025 12:38 PM [facility] MPV 9.6 7.0 - 11.0 FL [...] LAB HEMETOLOGY METHOD 07/05/2025 12:38 PM EDT [facility] Lymphocytes Absolute 2.18 1.00 - 5.00 K/mcL LAB HEMETOLOGY METHOD 07/05/2025 12:38 PM EDT [facility] Monocytes Absolute 0.60 0.20 - 1.00 K/mcL LAB HEMETOLOGY METHOD 07/05/2025 12:38 PM EDT [facility] Eosinophils Absolute 0.42 0.00 - 0.50 K/[facility] LAB HEMETOLOGY METHOD 07/05/2025 12:38 PM EDT [facility] Basophils Absolute 0.07 0.00 - 0.20 K/mcL LAB HEMETOLOGY METHOD 07/05/2025 12:38 PM EDT [facility] Immature Granulocytes Absolute 0.03 0.00 - 0.03 K/[facility] LAB HEMETOLOGY METHOD 07/05/2025 12:38 PM EDT [facility] Blood Venous blood specimen / Unknown Venipuncture / Unknown 07/05/2025 8:46 AM EDT 07/05/2025 8:46 AM EDT us Malena Roberts NP LAB BLOOD ORDERABLES Final Resul t [facility] [address] [place] [address], * (ABNORMAL) Comprehensive metabolic panel (07/05/2025 8:46 AM EDT) Sodium 143 133 - 145 mmol/L LAB CHEMISTRY METHOD 07/05/2025 1:43 PM EDT [facility] Potassium 4.6 3.5 - 5.5 mmol/L LAB CHEMISTRY METHOD 07/05/2025 1:43 PM EDT [facility] Chloride 108 96 - 110 mmol/L LAB CHEMISTRY METHOD 07/05/2025 1:43 PM [facility] CO2 30 21 - 32 [...] LAB CHEMISTRY METHOD 07/05/2025 1:43 PM EDT [facility] Total Bilirubin 0.5 0.0 - 1.4 mg/dL LAB CHEMISTRY METHOD 07/05/2025 1:43 PM EDT [facility] Blood Venous blood specimen / Unknown Venipuncture / Unknown 07/05/2025 8:46 AM EDT 07/05/2025 8:46 AM EDT us Malena Roberts NP LAB BLOOD ORDERABLES Final Resul t [facility] [address] [place] [address], [place] [phone] * External clinical lab (06/06/2025) Only the [...] should be classified as having osteoporosis. [facility] Department of Internal Medicine recommends using [...] [place] should beclassified as having osteoporosis. [facility] Department of Internal Medicine recommendsusing National [...] PROCEDURES Final Result * Colonoscopy (08/09/2020) [facility] Colonoscopy no interpretation , abstracted Anatomical Region Laterality Modality Other Historical Provider MD HEALTH MAINTENANCE Final Result from Last 3 Months or Most Recently Relevant to Health Maintenance Insurance MEDICAID - [place] [employer] MEDICARE Care Teams Atg Architect Relationship Specialty Start Date End Date Milton Houser MD [address] [place], [place] [address] [place] [address] PCP - General Internal Medicine 09/14/24
--- OUTSIDE RECORDS SUMMARY | 2025-08-30 09:44 | XMS_ITS | Encounter Summary ---
Author Organization [facility] Address [address] [place] [address] Phone Care Team Providers Care Trauma Registrar Name Role Phone Jodie Holden MD Primary Care Pro vider Milton Houser MD Primary Care Provider [phone] Encounter Details Date Type Department Care Team (Late st Contact Info) Description 05/20/2022 Procedure Pass [facility] [address] [place] [address] Social History Tobacco Use Types Packs/Day Years [...] Care Team (Late st Contact Info) Description 09/12/2025 1:30 PM EST Procedure visit [facility] [address] [place] [address] Gonzales Chappell MD, PhD [address] [place] [id number] [email or web address] 01/18/2026 11:00 AM EDT Office Visit [facility] Department of Neurology [address] [place] [address] Mook Delgadillo PA-C [address] [place] [address] [email or web address] documented as of this encounter Visit Diagnoses Not on filedocumented in this encounter Care Teams Trauma Registrar Relationship Specialty Start Date End Date Jodie Holden MD [address] [place] [address] PCP - General Internal Medicine 11/11/19 10/20/23 Milton Houser MD [address] [place] [address] PCP - General Internal Medicine 10/21/23 documented as of this encounter Additional Source Comments The information contained in this document represents components of the legal health record. It is not the complete legal health record.[facility]
--- OUTSIDE RECORDS SUMMARY | 2025-08-30 09:44 | XMS_ITS | Clinical Summary ---
Author Organization [facility] Address [address] [place] [address] [address] [place] [address] Phone Care Team Providers Care Irrigation Engineer Name Role Phone Milton Houser MD Primary Care Provider [phone] Allergies No known active allergies Medications amLODIPine (NORVASC) 2.5 MG tablet Take 5 mg by mouth. 0 Active atorvastatin (LIPITOR) 10 MG tablet Take 1 tablet by mouth daily. 2 Active donepeziL (ARICEPT) 10 MG tablet Take 1 tablet (10 mg total) by mouth nightly at bedtime. 90 tablet 3 5 02/24/20 26 Active memantine (NAMENDA) 10 MG tablet Take 1 tablet (10 mg total) by mouth daily. 90 tablet 1 5 Active memantine (NAMENDA) 10 MG tablet TAKE 1 TABLET BY MOUTH EVERY DAY 90 tablet 1 5 08/03/20 25 Discontinu ed(Reorder ) Active Problems Problem Noted Date Diagnosed Date Alzheimer's disease 12/05/2024 Encounters Date Type Department Care Team Description 08/03/2025 Refill [facility] Department of Neurology [address] [place] [address] Mook Delgadillo PA-C Medication Refill 07/25/2025 1:20 PM EDT Procedure visit [facility] [address] [place] [address] Gonzales Chappell MD, PhD Exudative age-related macular degeneration of right eye with active choroidal neovascularization (Primary Dx) 06/29/2025 11:30 AM EDT Office Visit [facility] of [facility]rology [address] [place] [address] Mook Delgadillo PA-C Alzheimer's disease (Primary Dx); Memory loss 06/13/2025 1:30 PM EDT Procedure visit [facility] [address] [place] [address] Gonzales Chappell MD, PhD Exudative age-related macular [...] Description 09/12/2025 1:30 PM EST Procedure visit [facility] [address] [facility] [address]th [place] [address] Gonzales Chappell MD, PhD [address] [place] [id number] [email or web address] 01/18/2026 11:00 AM EDT Office Visit [facility] Department of [facility]rology [address] [place] [address] Mook Delgadillo PA-C [address] [place] [address] [email or web address] Health Maintenance Due Date Last Done Comments [...] Procedure Name Priority Date/Time Associated Diagnosis Comments INTRAVITREAL INJECTION, PHARMACOLOGIC AGENT - OD - RIGHT EYE Routine 07/25/2025 2:03 PM EDT Exudative age-related macular degeneration of right eye with active choroidal neovascularization OCT, RETINA - OU - BOTH EYES Routine 07/25/2025 1:58 PM EDT Exudative age-related macular degeneration of [...] neovascularization from Last 3 Months Results * Intravitreal Injection, Pharmacologic Agent - OD - Right Eye (07/25/2025 2:03 PM EDT) Other Narrative Gonzales Chappell MD, PhD - 07/25/2025 2:03 PM EDT Pre-Procedure Fall Risk Assessment: age >65 (10 pts), medication regimen (5 pts), language barrier (5 pts). [facility] Right Eye sc: 20/80-2. Ph sc: NI. Left Eye sc: 20/60. Ph sc: NI. Pre Procedure Drops to Injected Eye Anesthetic Medication: Proparacaine 0.5%. Injection Information Timeout performed: Yes. Anesthetic Medication: Proparacaine 0.5%. Anesthetic Medication, time: 1:55 PM. Antiseptic Medication Povidone Iodine. Antiseptic Medication, Time: 1:57 PM. Injection Medication: 2 mg aflibercept 2 mg/0.05 mL Route: Intravitreal, Site: Right Eye [facility]: 11080-288-96, Lot: [id number], Expiration date: 09/01/2026, Waste: 0 mL Post-Procedure Pain Assessment: 0. Fall Risk Reassessment: age >65 (10 pts), medication regimen (5 pts), language barrier (5 pts). Notes Choroidal neovascular membrane right eye us Gonzales Chappell MD, PhD OPHTHALMOLOGY PROCEDURE S Final Result * OCT, RETINA - OU - BOTH EYES - [place] (07/25/2025 1:58 PM EDT) Narrative YADIRA - 07/25/2025 1:58 PM EDT Right Eye Quality was good. Disease has: been improved. Left Eye Quality was good. Disease has: been stable. Notes OD: Multiple serous and drusenoid PEDs, IRF and SRF has resolved in interval from last visit OS: Scattered drusen, shallow PED x2 superiorly, stable us Gonzales Chappell MD, PhD OPHTHALMOLOGY IMAGING F inal Result Performing Organization Address [facility] Co de Phone Number YADIRA * OCT, RETINA - OU - BOTH EYES - [place] (06/13/2025 2:20 PM EDT) Narrative YADIRA - 06/13/2025 2:20 PM EDT Right Eye Quality was good. Left Eye Quality was good. Disease has: been stable. Notes OD: PED, SRF inferotemporally, mild IRF nasally that is stable, outer retinal attenuation - stable nasal IRF, increased SRF OS: Scattered drusen, shallow PED x2 superiorly, stable us Gonzales Chappell MD, PhD OPHTHALMOLOGY IMAGING F inal Result Performing Organization Address [facility] Co de Phone Number YADIRA * Intravitreal Injection, Pharmacologic Agent - OD [...] mg/0.07 mL Route: Intravitreal, Site: Right Eye [facility]: 10624-434-90, Lot: [id number], Expiration date: 10/01/2025, Waste: 0.0201 mL Post-Procedure Pain Assessment: 0. Fall Risk Reassessment: age >65 (10 pts), language barrier (5 pts). Notes Choroidal neovascular membrane right eye Gonzales Chappell MD, PhD OPHTHALMOLOGY PROCEDURE S Final Result from Last [address] [place] [address] MEDICARE REPLACEMENT [facility] MEDICARE REPLACEMENT MEDICARE REPLACEMENT MEDICARE REPLACEMENT MEDICARE REPLACEMENT MEDICARE REPLACEMENT MEDICARE REPLACEMENT MEDICARE REPLACEMENT [facility] MEDICARE REPLACEMENT Care Teams Irrigation Engineer Relationship Specialty Start Date End Date Milton Houser MD [address] [place] [id number] PCP - General Internal Medicine 10/21/23 Additional Source Comments The information contained in this document represents components of the legal health record. It is not the complete legal health record.[facility]
--- NOTE | 2025-08-30 09:57 | PM.PROC ---
Brief Operative Note Date of procedure: 08/30/25 Pre-op diagnosis: left mid 2.1 cm thyroid nodule Post-op diagnosis: same Procedure: PROCEDURE PERFORMED: Ultrasound-guided FNA of thyroid nodule OPERATORS: Dr. Rhodes INDICATION: left mid 2.1 cm thyroid nodule; FNA performed to assess for malignancy DESCRIPTION OF PROCEDURE: The indications for FNA (to assess for malignancy) were reviewed with the patient in detail. Potential complications (e.g., bleeding, infection, damage to local structures, absence of clear diagnosis after FNA) were reviewed. Alternatives to FNA including conservative observation or surgery were described. The patient understood and agreed to proceed. This was documented by the signing of the written informed consent form. A time-out was performed to confirm the patient's identity and the site of planned FNA. The nodule of interest was identified using ultrasound (14 MHz linear array probe). The site of FNA was then draped in the usual fashion and carefully cleaned and prepared using alcohol swabs. The skin at the previously-identified site of needle insertion was iced and sprayed with numbing spray. Under ultrasound guidance, 4 passes were performed using a 1.5-inch, 22-gauge needle, and sample was obtained via capillary action. The needle tip was clearly visualized to be within the nodule at the time of sampling for 4 of 4 passes The patient tolerated the procedure well. There were no immediate complications. A small adhesive bandage was applied, and the patient was advised to take acetaminophen (rather than NSAIDs) for any discomfort and to report any signs of inflammation/infection or marked swelling. IMPRESSION: Technically successful ultrasound-guided fine needle aspiration of left mid 2.1 cm thyroid nodule. PLAN: The patient was advised that I will provide follow-up regarding the cytology result and any subsequent plans. Luis Rhdoes MD Endocrinology Attending Anesthesia: local Surgeon: Luis Messina Pathology: other (Affirma) Condition: stable Disposition: same day
== END 2025-08-30 08:51 | disposition home or self-care (01) ==
LOC: HO.US 08:50
PROVIDERS: PCP Internal Medicine; Visit Provider Student in an Organized Health Care Education/Training Program
DX: E04.2 Nontoxic multinodular goiter (principal)
CPT/HCPCS: 10005; 88173; 88305

== ENCOUNTER → 2025-08-30 08:50 | Outpatient (BNV) | payer MEDICARE, SELFPAY | PROVIDERS: PCP Internal Medicine; Visit Provider Student in an Organized Health Care Education/Training Program | DX: E04.1 Nontoxic single thyroid nodule (principal) | CPT/HCPCS: 10005 ==

== ENCOUNTER 2025-09-19 10:42 | Outpatient (AMB) | payer MEDICARE, SELFPAY ==
--- NOTE | 2025-09-19 11:12 | AM.OFFVISNUR ---
Intake Visit Reasons: Evenity #3 Allergies No Known Allergies Allergy (Verified 07/05/25 14:01) Office Meds romosozumab-aqqg 210 mg/2.34 mL(105 mg/1.17 mL x2)subcutaneous syringe Performing Provider: Angelica Land MD Performing Location: [facility] [place] Endocrinology Administered by: Jacque Bartholomew RN on 09/19/25 11:08 Dose Route Admin Location Dispensed Lot Number Expiration Date [facility] Umbrella Cutter 210 mg subcut bilateral upper arms 2.34 mL [id number] 01/31/28 58982-440-51 [employer] Total Dispensed Waste 2.34 mL 0 % Comments: PT accompanied by son. Pt declined java portal developer. No adverse reactions reported from previous injection. Pt tolerated injection well. Pt scheduled in 4 weeks for next appt. No further questions at this time. Assessment & Plan Assessment & Plan Orders: Orders AMB Romosozumab Injection Patient Supplied Today M81.0 - Age-related osteoporosis without current pathological fracture Coding
== END 2025-09-19 11:11 | disposition home or self-care (01) ==
LOC: HO.ENCR 10:43
PROVIDERS: PCP Internal Medicine; Visit Provider Internal Medicine Endocrinology, Diabetes & Metabolism
DX: M81.0 Age-related osteoporosis without current pathological fracture (principal)

== ENCOUNTER → 2025-09-19 10:42 | Outpatient (BNVA) | payer MEDICARE, SELFPAY | PROVIDERS: PCP Internal Medicine; Visit Provider Internal Medicine Endocrinology, Diabetes & Metabolism | DX: M81.0 Age-related osteoporosis without current pathological fracture (principal); Z79.620 Long term (current) use of immunosuppressive biologic | CPT/HCPCS: 96372; J3111 ==

== ENCOUNTER 2025-10-04 15:51 | Outpatient (AMB) | payer MEDICARE, SELFPAY ==
[2025-10-04 16:04] VITALS: BP 164/88; PULSE 66; O2SAT 96; BMI 25.8
--- NOTE | 2025-10-04 16:04 | A.OFFVIS_ITS ---
Vital Signs 3 10/04/25 16:04 Height 5 ft 3 in Weight 145 lb 8.081 oz BMI 25.8 BP 164/88 H Blood Pressure Location Rt brachial Position Sitting Pulse 66 Pulse Source Pulse Oximeter Pulse Oximetry (%) 96 Oxygen Delivery Method Room Air Intake Visit Reasons: FNA Thyroid Biopsy Results Intake Note: Patient present today for FNA Biopsy Results follow up visit. L Speech Scientist Required: Yes Speech Scientist Language: Niuean - Traditional Speech Scientist Services: Speech Scientist Offered & Declined Accompanied by: Son Allergies No Known Allergies Allergy (Verified 07/05/25 14:01) Medication List - Last Reconciled 10/04/25 by Luis Messina MD amlodipine 2.5 mg PO DAILY atorvastatin 10 mg PO DAILY cholecalciferol (vitamin D3) 50 mcg PO DAILY donepezil 10 mg PO BEDTIME memantine 10 mg PO QPM [id number] (Evenity) 210 mg (2.34 mL) subcut QMONTH 12 months HPI Comments Details: This is a 85-year-old Mandarin female with a history of primary hyperparathyrodism s/p right inferior parathyroidectomy and osteoporosis. Also follows for MNG. primary hyperparathyroidism osteoporosis s/p right inferior parathyroidectomy 07/2022, with Dr. Eric Marie at [facility] , intraop PTH dropped from 420 to 27 osteoporosis. on fosamax 70 mg weekly unclear on how long she has been on this but patient sons endorses at least been on it for the past 5 years s vitamin D3 2000 IU per day . No kidney stones in past. No fragility fx Dexa 06/25 spine t score -2.7 ,13.7 %increase from 202 in BMD , left femu nec k-2.9 and total femor -3.5 , 2.9 % increase from 2022 foraearm -3.6 6.5 % increase from baseline Lost 2 inches of height since 1 years Complaining of worsening back pain for the past 1 year HAd a recent fall as fell on knees last week, no known fractures She has all dentures Interval history 12/02/24 Labs 10/07/2024 showed CTX of 142, vitamin-D level 63.1, GFR 53, calcium 9.7, with albumin of 4.2, ionized calcium 5.2, bone specific alkaline phosphatase 11.1, PTH 53.3 X-rays of the spine, hip did not show any fracture. Interval history 06/19/25 Stopped Fosamax November 2024 Vitamin D 2000 units daily Calcium 300 mg BID tablet daily, no milk yogurt cheese No falls or fractures Labs from May 2025 showed normal protein electrophoresis, normal immunofixation, low 24 hour urine calcium levels, normal calcium, PTH, vitamin-D of 66. CTX 92, BSAP 11. Interval history 07/05/2025 Evenity has been approved, pending start of injections MNG She also has a history of a multinodular goiter unclear year of diagnosis status post FNA of a left midpole nodule and right nodule 12/30/2018 with benign cytology. Recent thyroid ultrasound June 2024 showed stability in size of the nodules Denies compressive symptoms No hypo/hyperthyroid symptoms No family history of thyroid cancer No head or neck radiation history Normal TFTs from this year summer 2024 Ultrasound thyroid 05/31/2025, I reviewed the images myself which show right mid lobe nodule 2.7 cm TR 4 category remained stable in size. Right mid to lower pole 1 cm nodule TR 4 category also remained stable in size. The left superior nodule has increased in size but it is a TR 3 nodule which measures 1.7 cm in still does not meet criteria for biopsy. We will continue to monitor this. The left mid lobe nodule has also increased significantly in size to 2.1 cm in the largest dimension from 1.4 cm in the largest dimension previously, it is a TR 3 nodule. This likely the nodule that was biopsied in 2019 with benign cytology however now with significant increase in size, meets criteria for biopsy. A 0.9 cm left inferior pole TR 2 category nodule noted. 06/21/25: Status post FNA of the left mid 2.1 cm thyroid nodule which came back as nondiagnostic, [place] category 1, rare colloid and rare follicular cells seen with predominantly blood. Interval history 10/04/24: Patient underwent 2nd FNA 08/30/25, resulting inconclusive. Physical exam General: sitting comfortably in no acute distress HEENT: normocephalic/atraumatic, moist oral mucosa Neck: supple, 2 cm palpable right-sided thyroid nodule , no dorsocervical or supraclavicular fat pads Cardiac: normal heart sounds Pulm: normal breath sounds B/L, no added breath sounds Abd: not distended, no tenderness Extremities: no edema, no signs of myxedema Neuro: AAO x3, Speech: normal, no facial droop, moving all 4 extremities Laboratory Tests 11/04/18 04/16/19 01/29/22 08:00 08:00 13:58 Calcium 11.3 H Ionized Calcium Albumin 4.0 N-Telopeptide X-linked 42 58 25-OH Vitamin D Total TSH Free T4 PTH Intact 143 H 05/26/22 11/26/22 06/02/23 11:10 14:18 10:15 Calcium 10.1 D Ionized Calcium Albumin 4.1 N-Telopeptide X-linked 25-OH Vitamin D Total TSH 2.70 Free T4 1.05 PTH Intact 58 06/03/24 06/06/24 12:04 09:15 Calcium 10.0 Ionized Calcium 5.3 Albumin 4.0 N-Telopeptide X-linked 15 25-OH Vitamin D Total 59.1 TSH Free T4 PTH Intact Laboratory Tests 10/07/24 10/08/24 11:17 09:04 Sodium 145 Potassium 4.2 Creatinine 1.00 Estimated GFR 53 Random Glucose 87 Calcium 9.7 9.6 Ionized Calcium 5.2 Alk Phos Bone Specific 11.1 Albumin 4.2 Collgn I C-Telopeptide 142 25-OH Vitamin D Total 63.1 TSH 2.63 Free T4 1.11 PTH Intact 53.3 Laboratory Tests 10/07/24 10/08/24 05/31/25 11:17 09:04 10:37 Creatinine 1.00 Estimated GFR 53 Calcium 9.6 Ionized Calcium 5.4 Phosphorus 3.7 Alk Phos Bone Specific 11.0 Albumin 4.3 Collgn I C-Telopeptide 142 25-OH Vitamin D Total 66.5 TSH 2.80 PTH Intact 37.0 Ur 24 Hour Volume Ur Creatinine mg/dL Ur Creatinine 24 Hour Ur Calcium 24 Hr Calcium/Creat 24 Hr IgG Total 1094 IgA Total 246 IgM 144 06/02/25 06/02/25 07:00 08:08 Creatinine Estimated GFR Calcium Ionized Calcium Phosphorus Alk Phos Bone Specific Albumin Collgn I C-Telopeptide 92 25-OH Vitamin D Total TSH PTH Intact Ur 24 Hour Volume 2675 Ur Creatinine mg/dL 35.39 Ur Creatinine 24 Hour 0.9 L Ur Calcium 24 Hr 83 Calcium/Creat 24 Hr 84 IgG Total IgA Total IgM EXAMINATION: US THYROID 05/31/25 HISTORY: E04.2 - Nontoxic multinodular goiter TECHNIQUE: Real-time grayscale ultrasound imaging was performed and images were reviewed. COMPARISON: Comparison is made with the prior examination dated 06/23/2024. FINDINGS: SIZE: The right thyroid lobe measures 5.3 x 1.7 x 2.2 cm. The left thyroid lobe measures 4.4 x 1.9 x 1.9 cm. The isthmus measures 3 mm. FLOW: Flow to the gland is increased. ECHOGENICITY: The echotexture of the gland is heterogeneous. NODULES: Multiple bilateral thyroid nodules are identified as described below: Nodule #: 1 Location: Midportion of the right thyroid lobe measuring 2.7 x 1.3 x 1.8 cm (previously 2.7 x 1.4 x 1.9 cm). Shape: Wider than tall (0 points) Margins: Smooth (0 points) Echotexture: Isoechoic (1 point) Composition: Mixed (1 point) Calcifications: Punctate calcifications (3 points) Total points: 5 TIRADS: TR4: Moderately suspicious. Nodule #: 2 Location: Mid to lower pole of the right thyroid lobe measuring 1.0 x 0.4 x 1.0 cm (previously 0.8 x 0.3 x 1.1 cm). Shape: Wider than tall (0 points) Margins: Smooth (0 points) Echotexture: Isoechoic (1 point) Composition: Mixed (1 point) Calcifications: Punctate calcifications (3 points) Total points: 5 TIRADS: TR4: Moderately suspicious. Nodule #: 3 Location: Upper pole of the left thyroid lobe measuring 1.7 x 1.1 x 1.2 cm (previously 1.0 x 0.8 x 1.3 cm). Shape: Wider than tall (0 points) Margins: Smooth (0 points) Echotexture: Isoechoic (1 point) Composition: Solid (2 points) Calcifications: None (0 points) Total points: 3 TIRADS: TR3: Mildly suspicious. Nodule #: 4 Location: Midportion of the left thyroid lobe measuring 2.1 x 1.0 x 1.6 cm (previously 0.7 x 0.9 x 1.4 cm). Shape: Wider than tall (0 points) Margins: Smooth (0 points) Echotexture: Isoechoic (1 point) Composition: Solid (2 points) Calcifications: None (0 points) Total points: 3 TIRADS: TR3: Mildly suspicious. Nodule #: 5 Location: Lower pole of the left thyroid lobe measuring 0.9 x 0.5 x 1.0 cm (not seen previously). Shape: Wider than tall (0 points) Margins: Smooth (0 points) Echotexture: Isoechoic (1 point) Composition: Mixed (1 point) Calcifications: None (0 points) Total points: 2 TIRADS: TR2: Not suspicious US/US thyroid IMPRESSION: Multinodular thyroid gland. Nodule #1 above in the midportion of the right thyroid lobe meets ACR TI-RADS guidelines for ultrasound-guided fine-needle aspiration if this has not already been performed. The remaining nodules can be followed. US THYROID 06/25 CLINICAL INFORMATION: Nontoxic multinodular goiter, fine needle aspiration December 30, 2018. COMPARISON: 12/15/2022, 01/04/2020, 11/04/2018. TECHNIQUE: Linear transducer grayscale and color Doppler examination with attention to the region of the thyroid. FINDINGS: SIZE: Measurements of the thyroid lobes and nodules are given in sagittal, anteroposterior and transverse dimensions respectively. Right Thyroid Lobe: 5.0 x 1.5 x 2.5 cm, volume 9.6 mL. Parenchyma: The gland echotexture is heterogeneous. Thyroid vascularity is increased. Left Thyroid Lobe: 4.1 x 1.7 x 1.5 cm, volume 5.4 mL. Parenchyma: The gland echotexture is heterogeneous. Thyroid vascularity is increased. Isthmus: 0.2 cm in maximum AP dimension. Estimated total number of nodules greater than or equal to 1 cm: 4. Clock Smith nodules are described as follows: 1. Location: Right mid. Size: 2.7 x 1.4 x 1.9 cm, volume 3.8 mm, previously 2.8 x 1.3 x 1.8 cm, volume of 3.4 mL. Nodule characteristics: Composition: Solid/almost completely solid (2). Echogenicity: Isoechoic (1). Shape: Not taller than wide (0). Margins: Ill-defined (0). Echogenic Foci: Punctate echogenic foci (3). ACR TI-RADS total points: 6, previously 6. ACR TI-RADS category: 4, previously 4. 2. Location: Right medial midpole. Size: 0.8 x 0.3 x 1.1 cm, volume 0.1 mm, previously 0.9 x 0.4 x 0.8 cm, volume 0.1 mL. Nodule characteristics: Composition: Solid/almost completely solid (2). Echogenicity: Isoechoic (1). Shape: Not taller than wide (0). Margins: Smooth (0). Echogenic Foci: None (0). ACR TI-RADS total points: 3, previously 3. ACR TI-RADS category: 3, previously 3. 3. Location: Left upper. Size: 1.1 x 0.8 x 1.0 cm, volume 0.5 mL, volume 1.6 x 1.2 x 1.0 cm, volume 1.0 mL mL. Nodule characteristics: Composition: Solid (2). Echogenicity: Isoechoic (1). Shape: Not taller than wide (0). Margins: Ill-defined (0). Echogenic Foci: Punctate echogenic foci (3). ACR TI-RADS total points: 6, previously 9. ACR TI-RADS category: 4, previously 5. 4. Location: Left mid. Size: 1.3 x 0.8 x 1.1 cm, volume 0.6 mm, previously 1.5 x 0.9 x 0.9 cm, volume 0.6 mL. Nodule characteristics: Composition: Solid/almost completely solid (2). Echogenicity: Isoechoic (1). Shape: Not taller than wide (0). Margins: Ill-defined (0). Echogenic Foci: Punctate echogenic foci (3). ACR TI-RADS total points: 6, previously 6. ACR TI-RADS category: 4, previously 4. 5. Location: Left lower. Size: 1.7 x 0.9 x 1.4 cm, volume 1.1 mL, previously 1.4 x 0.8 x 1.2 cm, volume 0.7 mL Nodule characteristics: Composition: Solid/almost completely solid (2). Echogenicity: Isoechoic (1). Shape: Not taller than wide (0). Margins: Smooth (0). Echogenic Foci: None (0). ACR TI-RADS total points: 3, previously 3. ACR TI-RADS category: 3, previously 3. NODES: No lymphadenopathy is seen in the tissue surrounding the thyroid gland. US/US thyroid IMPRESSION: Multinodular thyroid gland. 2.7 cm right mid TR4 nodule meets criteria for biopsy. Fine-needle aspiration recommended if not already performed. Additional thyroid nodules as detailed above for which annual surveillance is recommended. BONE DENSITOMETRY 06/25 CLINICAL INDICATION: Hyperparathyroidism. COMPARISON: Previous BD dated 03/18/2022 and baseline BD dated 09/16/2018. TECHNIQUE: Using a [employer] DXA System (software version: 13.1) manufactured by [employer], dual-energy x-ray absorptiometry was performed of the lumbar spine, left hip, and left forearm radius 33%. The images are of good technical quality. Summary results are attached. FINDINGS: LEFT FEMUR, NECK: Current: BMD 0.634 g/cm2, Z-score -0.6, T-score -2.9, osteoporosis. Prior: BMD 0.623 g/cm2. Baseline: BMD 0.635 g/cm2. LEFT FEMUR, TOTAL: Current: BMD 0.570 g/cm2, Z-score -1.3, T-score -3.5, osteoporosis, 2.9% increase from previous, 1.2% increase from baseline (<5% change is not significant). Prior: BMD 0.554 g/cm2. Baseline: BMD 0.563 g/cm2. AP SPINE L1-L4: Current: BMD 0.855 g/cm2, Z-score -0.7, T-score -2.7, osteoporosis, 13.5% increase from previous, 8.4% increase from baseline (<5% change is not significant). Prior: BMD 0.753 g/cm2. Baseline: BMD 0.789 g/cm2. LEFT FOREARM RADIUS 33%: BMD 0.558 g/cm2, Z-score -0.7, T-score -3.6, osteoporosis, 6.5% increase from baseline (<5% change is not significant). Baseline: BMD 0.524 g/cm2. IDENTIFIED RISK FACTORS: Menopause, dementia, hyperparathyroidism. HISTORY OF FRACTURE: None listed. MEDICATIONS: Vitamin D. XR THORACIC SPINE 10/08/24 CLINICAL INFORMATION: Age-related osteoporosis without current pathological fracture M81.0. COMPARISON: None available TECHNIQUE: 3 views of the thoracic spine were obtained. FINDINGS: There are 12 rib-bearing thoracic vertebral bodies. Vertebral body heights are maintained. Intervertebral disc spaces are relatively preserved. Pedicles are intact. There is prominence of the left paraspinal soft tissues possibly indicating dilated thoracic aorta. XR/XR thoracic spine 2V IMPRESSION: Left paraspinal soft tissue prominence. Consider cross-sectional imaging correlation. Electronically signed by: Amadou Nobles MD 11/30/2024 09:57 AM EST RP XR HIP RIGHT 10/08/24 CLINICAL INFORMATION: Loss of height R29.890. COMPARISON: None available. TECHNIQUE: Two views of the right hip. FINDINGS: Mild axial cartilage space loss with hypertrophic lipping and buttressing of the femoral head neck junction. No displaced fracture or dislocation. Small sclerotic foci are seen within the right femoral neck and the right iliac bone. XR/XR hip RT min 2V IMPRESSION: Mild osteoarthritis of the right hip. Electronically signed by: Amadou Nobles MD 11/30/2024 09:50 AM EST RP XR LUMBOSACRAL SPINE 10/08/24 CLINICAL INFORMATION: Age-related osteoporosis without current pathological fracture M81.0. COMPARISON: None available. TECHNIQUE: 3 views of the lumbosacral spine. FINDINGS: The bones are osteopenic. There are 5 nonrib-bearing lumbar vertebral bodies. There is leftward curvature of the lumbar spine centered at L3-L4. Relative straightening of the lumbar lordosis. Vertebral body heights are maintained. Intervertebral disc spaces are relatively preserved. Ventral bridging osteophytes at L2-L3. Facet hypertrophy at L5-S1. Possible fusion of the superior sacroiliac joints. Atherosclerotic changes of the abdominal aorta. XR/XR lumbar spine 2-3V IMPRESSION: No acute abnormality. Electronically signed by: Amadou Nobles MD 11/30/2024 09:53 AM EST RP [facility] Medical History Loss of height Back pain Osteoporosis Multinodular goiter (nontoxic) Hyperparathyroidism Surgical History Hx of ultrasound guided needle biopsy Hx of oral surgery History of back surgery Family History Father Diabetes Mother No problems noted. Social History Household Members: None Alcohol intake: never Patient Tobacco Use Status: Never used Tobacco Physical Exam Vital Signs: Last Vital Signs Pulse 66 10/04/25 16:04 BP 164/88 H 10/04/25 16:04 Pulse Ox 96 10/04/25 16:04 Oxygen Delivery Method Room Air 10/04/25 16:04 BMI result Body Mass Index 25.8 Assessment & Plan Assessment & Plan (1) Multinodular goiter (nontoxic): Code(s): E04.2 - Nontoxic multinodular goiter Category: Medical Plan: 84-year-old female with no family history of thyroid cancer, with no personal history of head or neck radiation who has had thyroid nodules at least since 2019. status post FNA of a left midpole nodule and right nodule 12/30/2018 with benign cytology. Normal TFTs from this year summer 2024 Ultrasound thyroid 05/31/2025, I reviewed the images myself which show right mid lobe nodule 2.7 cm TR 4 category remained stable in size. Right mid to lower pole 1 cm nodule TR 4 category also remained stable in size. The left superior nodule has increased in size but it is a TR 3 nodule which measures 1.7 cm in still does not meet criteria for biopsy. We will continue to monitor this. The left mid lobe nodule has also increased significantly in size to 2.1 cm in the largest dimension from 1.4 cm in the largest dimension previously, it is a TR 3 nodule. This likely the nodule that was biopsied in 2019 with benign cytology however now with significant increase in size, meets criteria for biopsy. A 0.9 cm left inferior pole TR 2 category nodule noted. 06/21/25: Status post FNA of the left mid 2.1 cm thyroid nodule which came back as nondiagnostic, [place] category 1, rare colloid and rare follicular cells seen with predominantly blood. 10/04/25: S/p 2nd FNA left mid 2.1 cm thyroid nodule which came back as nondiagnostic, [place] category 1, rare colloid and rare follicular cells seen with predominantly blood. We discussed with the patient that nondiagnostic FNAs means that the sample obtained was not sufficient to make a diagnosis. At this point there is 2 options, given that this is the second FNA that have failed to yield a diagnosis and the thyroid US shows concerning features, endocrine surgery referral for core biopsy or monitor with US in 6 months could be considered. Patient and son elected for 6 months US monitor. Plan: Order US for follow up in 6 months (2) Osteoporosis: Code(s): M81.0 - Age-related osteoporosis without current pathological fracture Category: Medical Qualifiers: Osteoporosis type: age-related Presence of current pathological fracture: without current pathological fracture Qualified Code(s): M81.0 - Age- related osteoporosis without current pathological fracture Plan: Patient with a history of primary hyperparathyroidism, status post left inferior parathyroidectomy in July [address] Eric Barth at [facility] who subsequently had resolution of hypercalcemia as well as normalization of her parathyroid hormone levels. She has been on Fosamax 70 mg weekly for over 5 years, however most recent bone density done in June 2024 still shows persistent osteoporosis with spine t score -2.7 ,13.7 %increase from 2022 in BMD , left femur nec k-2.9 and total femor -3.5 , 2.9 % increase from 2022 foraearm -3.6 , 6.5 % increase from baseline Unfortunately I do not think the Fosamax was stopped to allow for adequate bone accrual. She has had significant increase in bone density of the lumbar spine as well as the forearm, however bone density in the hip remained stable. Her urine NTX level is also low at 15 from June 2024. Labs 10/07/2024 showed CTX of 142, vitamin-D level 63.1, GFR 53, calcium 9.7, with albumin of 4.2, ionized calcium 5.2, bone specific alkaline phosphatase 11.1, PTH 53.3 Since her bone markers are consistent with suppressed resorption and given persistent osteoporosis we stopped Fosamax November 2024 to allow for more bone accrual subsequent to her parathyroidectomy. CTX remains low at 92 from April 2025. Secondary workup from June 2025 shows low 24 hour urine calcium levels indicating poor nutritional intake. Advised on increasing calcium intake. Given persistent osteoporosis, she would benefit from an anabolic agents such as Tymlos or Forteo or Evenity, though she has a history of colon cancer this does not usually have risk of bone metastasis and she does not have any history of radiation to her bones. Given history of hyperparathyroidism in the past, I would prefer Evenity in her case given bone density last in June 2024 showed severe osteoporosis with low T-scores such as-3.5 with a total femur-3.6 at the forearm.. After that would consider switching to Prolia after 1 year of therapy. Plan: -start Evenity monthly injections -continue vitamin-D 2000 units daily -she has minimal nutritional intake of calcium, advised about taking 2-3 servings of calcium daily , if she can not meet 2000 mg daily requirement she can supplement with 600 mg of calcium supplement - fall precautions discussed -30 minutes of walking encouraged daily Plan 25 minutes spent reviewing previous records, labs, imaging, education and documenting in the chart Orders: Orders 2 US thyroid 6 Months E04.2 - Nontoxic multinodular goiter Coding Level of Care Code Est Pt Level 3 (04137) Diagnoses Multinodular goiter (nontoxic) E04.2 Age-related osteoporosis without current pathological fracture M81.0 Osteoporosis type: age-related Presence of current pathological fracture: without current pathological fracture
--- OUTSIDE RECORDS SUMMARY | 2025-10-04 18:43 | XMS_ITS | Encounter Summary ---
Author Organization [facility] Address [address] [place] [address] Phone Care Team Providers Care Computer Systems Consultant Name Role Phone Milton Houser MD Primary Care Provider [phone] Encounter Details Date Type Department Care Team ([facility] st Contact Info) Description 09/27/2025 Telephone [facility] [address]th [place] [address] Gonzales Chappell MD, PhD [address] [place] [phone] [email or web address] Social History Tobacco Use Types Packs/Day Years [...] on file documented as of this encounter Progress Notes * Tiago Avila - 09/27/2025 2:14 PM EST Granddaughter (Caroline Rojo [phone]) has some questions regarding her grandmother condition, looking to do a potential transfer to a provider closer to home, driving to [place] is becoming a little hard for them documented in this encounter Plan of Treatment Upcoming Encounters Date Type Department Care Team (Late st Contact Info) Description 10/31/2025 1:30 PM EST Procedure visit [facility] [address] [place] [address] Gonzales Chappell MD, PhD [address] [place] [phone] [email or web address] 01/18/2026 11:00 AM EDT Office Visit [facility] [address] [place] [address] Mook Delgadillo PA-C [address] [place] [phone] [email or web address] documented as of this encounter Visit Diagnoses Not on filedocumented in this encounter Additional Health Concerns Assessment Noted Time PHQ-2 Depression Total Score: 1 12/05/19 25 1:04 PM EST documented as of this encounter Care Teams Computer Systems Consultant Relationship Specialty Start Date End Date Milton Houser MD [address] [place] [address] PCP - General Internal Medicine 10/21/23 documented as of this encounter Additional Source Comments The information contained in this document represents components of the legal health record. It is not the complete legal health record.[facility]
--- OUTSIDE RECORDS SUMMARY | 2025-10-04 18:43 | XMS_ITS | Encounter Summary ---
Author Organization [facility] Address [address] [place] [address] Phone Care Team Providers Care Combustion Analyst Name Role Phone Jodie Holden MD Primary Care Pro vider Milton Houser MD Primary Care Provider [phone] Encounter Details Date Type Department Care Team (Late st Contact Info) Description 05/20/2022 Procedure Pass [facility] [address] [place] [address] Social History Tobacco Use Types Packs/Day Years [...] 1:30 PM EST Procedure visit [facility] [address] [place] [address] Gonzales Chappell MD, PhD [address] [place] [phone] [email or web address] 01/18/2026 11:00 AM EDT Office Visit [facility] [address] [place] [address] Mook Delgadillo PA-C [address] [place] [address] [email or web address] documented as of this encounter Visit Diagnoses Not on filedocumented in this encounter Care Teams Combustion Analyst Relationship Specialty Start Date End Date Jodie Holden MD [address] [place] [address] PCP - General Internal Medicine 11/11/19 10/20/23 Milton Houser MD [address] [place] [address] PCP - General Internal Medicine 10/21/23 documented as of this encounter Additional Source Comments The information contained in this document represents components of the legal health record. It is not the complete legal health record.[facility]
--- OUTSIDE RECORDS SUMMARY | 2025-10-04 18:43 | XMS_ITS | Clinical Summary ---
Author Organization [facility] [address] [facility] Address [address] [place] [address] Phone Care Team Providers Care Hide Puller Name Role Phone Milton Houser MD Primary Care Provider [phone] Allergies No known active allergies Medications donepeziL (ARICEPT) 10 mg tablet Take 1 tablet (10 mg total) by mouth at bedtime. 02/26/20 23 Active loratadine (CLARITIN) 10 mg tablet Take 1 Tab by mouth daily as needed for Allergies (or ear symptoms) for up to 360 days. 01/16/20 20 Active UNABLE TO FIND Misc. 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 VACUUM FORM OPERATOR) Misc 1 Units by Does not apply route See Admin Instructions. Use to exercise legs twice daily for leg strengthening 12/08/19 19 Active memantine (NAMENDA) 10 mg tablet Take 1 tablet (10 mg total) by mouth 1 (one) time each day. 08/19/20 24 Active calcium carbonate (CALCIUM ORAL) Take 600 mg by mouth 1 (one) time each day. Active cholecalciferol (VITAMIN D-3) 25 mcg (1,000 unit) tablet TAKE 1 TABLET BY MOUTH TWICE A DAY 180 tablet 1 07/17/20 25 Active amLODIPine (NORVASC) 5 mg tabletIndication s:Primary hypertension TAKE 1 TABLET BY MOUTH EVERY DAY 90 tablet 1 08/23/20 25 Active atorvastatin (LIPITOR) 10 mg tabletIndication s:Hypercholester olemia TAKE 1 TABLET BY MOUTH EVERY DAY 90 tablet 1 08/23/20 25 Active Active Problems Problem Noted Date Diagnosed Date Postmenopausal bleeding 04/12/2025 Alzheimer's disease ([facility] V24, [facility] V28) 0 12/05/2024 History of colon cancer 10/11/2024 Assessment & Plan (04/27/2025 10:29 AM EDT): Pt declines further colonoscopies due to age Hx of parathyroidectomy 12/15/2022 Dermatochalasis of both eyelids 02/14/2021 Overview (08/05/2024): Skin overhanging upper lashes, visual field testing showing significant blockage, but patient declined to proceed with surgery; evaluated with Dr. Hilario at [facility] 02/14/2021 Insomnia 12/25/2019 Right knee pain 08/30/2017 Hyperparathyroidism ([facility] V24) 02/19/2017 Overview (08/05/2024): [facility], Dr. Kami Alan, declined surgical management Ongoing hypercalcemia and bone loss on sensipar and alendronate, has declined surgical management Vitamin D deficiency 10/29/2016 Overview (08/05/2024): PTH elevated Stable on 2000 IUs daily Hypertension 07/18/2016 Chronic gastritis 07/03/2016 Overview (08/05/2024): Upper endoscopy 2015 Hypercalcemia 06/11/2015 Iron deficiency anemia 06/11/2015 Mixed hyperlipidemia 06/11/2015 Osteoporosis 06/11/2015 Immunizations Immunization Administration Dates Next Due Influenza, Unspecified 09/18/2024 Pneumococcal conjugate 20 va lent (Prevnar 20, PCV 20) 2mo and older 03/21/2024 Surgical History Surgery Date Site/Laterality Comments OTHER SURGICAL HISTORY PROCEDURE: MAMMOGRAM UPPER GASTROINTESTINAL ENDOSCOPY 2016 PROCEDURE: UPPER GI ENDOSCOPY/EXAM COLONOSCOPY 12/21/2015 PROCEDURE: HISTORICAL COLONOSCOPY; COMMENT: repeat surveillance 07/15/17 [facility] BOWEL RESECTION 01/15/16 PROCEDURE: HISTORICAL BOWEL RESECTION; COMMENT: R hemicolectomy / adenocarcinoma Medical History Medical History Date Comments Mixed hyperlipidemia 06/11/2015 DX:Mixed hy perlipidemia Osteoporosis 06/11/2015 DX:Osteoporosis Hypercalcemia 06/11/2015 DX:Hypercalcemia Chronic gastritis 07/03/2016 DX:Chronic gas tritis; COMMENT: Upper endoscopy 2016 Colon cancer ([facility] V24, C MS/HCC V28) 07/03/2016 DX:Colon cancer [...] AM EST Office Visit Internal Medicine - [address] [phone] Malena Roberts NP [address] [place] [phone] Health Maintenance Due Date Last Done Comments [...] AM EDT History of iron deficiency anemia DXA BONE DENSITY STUDY 1+ SITS AXIAL SKEL Routine 08/15/2021 2:23 PM EDT Unspecified menopausal and perimenopausal disorder HM COLONOSCOPY Routine 08/09/2020 from Last 3 Months or Most Recently Relevant to Health Maintenance Results * Lipid panel with reflex to direct LDL (07/05/2025 8:46 AM EDT) Pathologist [facility] Cholesterol 163 0 - 200 mg/dL LAB CHEMISTRY METHOD 07/05/2025 1:43 PM EDT [facility] Triglycerides 95 0 - 150 mg/dL LAB CHEMISTRY METHOD 07/05/2025 1:43 PM EDT [facility] HDL 70 >=40 mg/dL LAB CHEMISTRY METHOD 07/05/2025 1:43 PM EDT [facility] LDL Calculated 74 0 - 100 mg/dL LAB CHEMISTRY METHOD 07/05/2025 1:43 PM EDT [facility] Comment:Estimated LDL Calcul ated using equation: Total cholesterol - HDL cholesterol - (Triglycerides/5) VLDL Cholesterol Rafal 19 mg/dL LAB CHEMISTRY METHOD 07/05/2025 1:43 PM EDT [facility] Non HDL Chol. (LDL+VLDL) 93 <145 mg/dL LAB CHEMISTRY METHOD 07/05/2025 1:43 PM EDT [facility] Chol/HDL Ratio 2.3 0.0 - 4.4 LAB CHEMISTRY METHOD 07/05/2025 1:43 PM EDT [facility] Blood Venous blood specimen / Unknown Venipuncture / Unknown 07/05/2025 8:46 AM EDT 07/05/2025 8:46 AM EDT us Malena Roberts NP LAB BLOOD ORDERABLES Final Resul t [facility] [address] [place] [address], * (ABNORMAL) CBC auto differential (07/05/2025 8:46 AM EDT) Pathologist [facility] WBC 7.4 4.8 - 10.8 K/[facility] LAB HEMETOLOGY METHOD 07/05/2025 12:38 PM EDT [facility] RBC 4.10 3.80 - 4.80 M/[facility] LAB [facility]OLOG[facility] Hemoglobin 12.7 11.5 - 16.0 g/dL LAB HEMETOLOGY METHOD 07/05/2025 12:38 PM [facility] Hematocrit 40.7 35.0 - 47.0 % LAB HEMETOLOGY METHOD 07/05/2025 12:38 PM [facility] MCV 98.8(H) 79.0 - 98.0 FL LAB HEMETOLOGY METHOD [facility]05[facility]25 [facility] MCH 30.8 27.0 - 32.0 pcg LAB HEMETOLOGY METHOD 07/05/2025 12:38 PM [facility] MCHC 31.2(L) 32.0 - 37.0 g/dL LAB HEMETOLOGY METHOD 07/05/2025 12:38 PM [facility] RDW 13.2 11.0 - 15.0 % LAB HEMETOLOGY METHOD 07/05/2025 12:38 PM [facility] Platelets 248 130 - 400 K/mcL LAB HEMETOLOGY METHOD 07/05/2025 12:38 PM [facility] MPV 9.6 7.0 - 11.0 FL LAB HEMETOLOGY METHOD 07/05/2025 12:38 PM [facility] NRBC 0.0 <1.0 % LAB HEMETOLOGY METHOD 07/05/2025 12:38 PM [facility] NRBC Absolute 0.00 <0.10 K/mcL LAB HEMETOLOGY METHOD 07/05/2025 12:38 PM [facility] Neutrophils Relative 55.5 % LAB HEMETOLOGY METHOD 07/05/2025 12:38 PM [facility] Lymphocytes Relative 29.4 % LAB HEMETOLOGY METHOD [facility]/05[facility]20[facility] Monocytes Relative 8.1 % LAB HEMETOLOGY METHOD 07/05/2025 12:38 PM EDT [facility] Eosinophils Relative 5.7 % LAB HEMETOLOGY METHOD 07/05/2025 12:38 PM EDT [facility] Basophils Relative 0.9 % LAB HEMETOLOGY METHOD 07/05/2025 12:38 PM EDT [facility] Immature Granulocytes Relative 0.4 % LAB HEMETOLOGY METHOD 07/05/2025 12:38 PM EDT [facility] Neutrophils Absolute 4.11 1.50 - 7.00 K/mcL LAB HEMETOLOGY METHOD 07/05/2025 12:38 PM EDT [facility] Lymphocytes Absolute 2.18 1.00 - 5.00 K/mcL LAB HEMETOLOGY METHOD 07/05/2025 12:38 PM EDT [facility] Monocytes Absolute 0.60 0.20 - 1.00 K/mcL LAB HEMETOLOGY METHOD 07/05/2025 12:38 PM EDT [facility] Eosinophils Absolute 0.42 0.00 - 0.50 K/mcL LAB HEMETOLOGY METHOD 07/05/2025 12:38 PM EDT [facility] Basophils Absolute 0.07 0.00 - 0.20 K/mcL LAB HEMETOLOGY METHOD 07/05/2025 12:38 PM EDT [facility] Immature Granulocytes Absolute 0.03 0.00 - 0.03 K/mcL LAB HEMETOLOGY METHOD 07/05/2025 12:38 PM EDT [facility] Blood Venous blood specimen / Unknown Venipuncture / Unknown 07/05/2025 8:46 AM EDT 07/05/2025 8:46 AM EDT us Malena Roberts NP LAB BLOOD ORDERABLES Final Resul t [facility] [address] [place] [address], [place] [phone] * (ABNORMAL) Comprehensive metabolic panel (07/05/2025 8:46 AM EDT) Sodium 143 133 - 145 mmol/L LAB CHEMISTRY METHOD 07/05/2025 1:43 PM [facility] Potassium 4.6 3.5 - 5.5 mmol/L LAB CHEMISTRY METHOD 07/05/2025 1:43 PM [facility] Chloride 108 96 - 110 mmol/L LAB CHEMISTRY METHOD 07/05/2025 1:43 PM [facility] CO2 30 21 - 32 mmol/L LAB CHEMISTRY METHOD 07/05/2025 1:43 PM [facility] Anion Gap 5 3 - 11 LAB CHEMISTRY METHOD 07/05/2025 1:43 PM [facility] Glucose 85 70 - 100 mg/dL LAB CHEMISTRY METHOD 07/05/2025 1:43 PM [facility] BUN 18 5 - 25 mg/dL LAB CHEMISTRY METHOD 07/05/2025 1:43 PM [facility] Creatinine 1.04 0.50 - 1.10 mg/dL LAB CHEMISTRY METHOD 07/05/2025 1:43 PM [facility] eGFR 53(L) >=60 mL/min/1. 73m2 LAB CHEMISTRY METHOD 07/05/2025 1:43 PM [facility] Comment:Calculation based on the Chronic Kidney Disease Epidemiology Collaboration (CKD-EPI) equation refit without adjustment for race. BUN/Creatinine Ratio 17.3 LAB CHEMISTRY METHOD 07/05/2025 1:43 PM [facility] Calcium 9.6 8.5 - 10.5 mg/dL LAB CHEMISTRY METHOD 07/05/2025 1:43 PM [facility] AST (SGOT) 24 10 - 42 unit/L LAB CHEMISTRY METHOD 07/05/2025 1:43 PM EDT [facility] ALT (SGPT) 22 10 - 60 unit/L LAB CHEMISTRY METHOD 07/05/2025 1:43 PM EDT [facility] Alkaline Phosphatase 74 42 - 121 unit/L LAB CHEMISTRY METHOD 07/05/2025 1:43 PM EDT [facility] Total Protein 6.6 6.0 - 8.0 g/dL LAB CHEMISTRY METHOD 07/05/2025 1:43 PM EDT [facility] Albumin 3.6 3.2 - 5.0 g/dL LAB CHEMISTRY METHOD 07/05/2025 1:43 PM EDT [facility] Total Bilirubin 0.5 0.0 - 1.4 mg/dL LAB CHEMISTRY METHOD 07/05/2025 1:43 PM EDT [facility] Blood Venous blood specimen / Unknown Venipuncture / Unknown 07/05/2025 8:46 AM EDT 07/05/2025 8:46 AM EDT us Malena Roberts NP LAB BLOOD ORDERABLES Final Resul t [facility] [address] [place] [address], * DXA BONE DENSITY STUDY 1+ SITS [...] should be classified as having osteoporosis. The [facility] Department of Internal Medicine recommends [...] [place] should beclassified as having osteoporosis. The [facility] Department of Internal Medicine recommendsusing [...] DXA PROCEDURES Final Result * Colonoscopy (08/09/2020) [facility] Colonoscopy no interpretation , abstracted Anatomical Region Laterality Modality Other Historical Provider HEALTH MAINTENANCE Final Result from Last 3 Months or Most Recently Relevant to Health Maintenance Insurance MEDICAID - [place] [employer] MEDICARE Care Teams Hide Puller Relationship Specialty Start Date End Date Milton Houser MD [address] [place] [address] PCP - General Internal Medicine 09/14/24
--- OUTSIDE RECORDS SUMMARY | 2025-10-04 18:43 | XMS_ITS | Clinical Summary ---
Author Organization [facility] Address [address] [place] [address] [place] [address] Phone Care Team Providers Care Mower Mechanic Name Role Phone Milton Houser MD Primary Care Provider [phone] Allergies No known active allergies Medications amLODIPine (NORVASC) 2.5 MG tablet Take 5 mg by mouth. 09/11/2020 Active atorvastatin (LIPITOR) 10 MG tablet Take 1 tablet by mouth daily. 07/21/2022 Active donepeziL (ARICEPT) 10 MG tablet Take 1 tablet (10 mg total) by mouth nightly at bedtime. 90 tablet 3 02/28/2025 Active memantine (NAMENDA) 10 MG tablet Take 1 tablet (10 mg total) by mouth daily. 90 tablet 1 08/03/2025 Active Active Problems Problem Noted Date Diagnosed Date Alzheimer's disease 12/05/2024 Encounters Date Type Department Care Team Description 09/27/[address] [address] Gonzales Chappell MD, PhD 09/12/2025 1:30 PM EST Procedure visit [address] [address] Gonzales Chappell MD, PhD Exudative age-related macular degeneration of right eye with active choroidal neovascularization (Primary Dx) 08/03/2025 Refill [facility] of [facility] [address] [place] [address] Mook Delgadillo PA-C Medication Refill 07/25/2025 1:20 PM EDT Procedure visit [facility] [address] [place] [address] Gonzales Chappell MD, PhD Exudative age-related macular [...] Description 10/31/2025 1:30 PM EST Procedure visit [facility] [address] [place] [address] Gonzales Chappell MD, PhD [address] [place] [phone] [email or web address] 01/18/2026 11:00 AM EDT Office Visit [facility] of [facility] [address] [place] [address] Mook Delgadillo PA-C [address] [place] [phone] [email or web address] Health Maintenance Due Date Last Done Comments [...] AGENT - OD - RIGHT EYE Routine 09/12/2025 2:16 PM EST Exudative age-related macular degeneration of right eye with active choroidal neovascularization OCT, RETINA - OU - BOTH EYES Routine 09/12/2025 1:44 PM EST Exudative age-related macular degeneration of right eye [...] Pharmacologic Agent - OD - Right Eye (09/12/2025 2:16 PM EST) Narrative Gonzales Chappell MD, PhD - 09/12/2025 2:16 PM EST Pre-Procedure Fall Risk Assessment: age >65 (10 pts), medication regimen (5 pts), language barrier (5 pts). Pre Procedure Drops to Injected Eye Anesthetic Medication: Proparacaine 0.5%. Dilation medication: Phenylephrine 2.5%-Tropicamide 1%. Injection Information Timeout performed: Yes. Anesthetic Medication: Proparacaine 0.5%. Anesthetic Medication, time: 2:12 PM. Antiseptic Medication Povidone Iodine. Antiseptic Medication, Time: 2:14 PM. Injection Medication: 2 mg aflibercept 2 mg/0.05 mL Route: Intravitreal, Site: Right Eye [facility]: 12243-584-66, Lot: [id number], Expiration date: 10/02/2026, Waste: 0 mL Post-Procedure Pain Assessment: 0. Fall Risk Reassessment: age >65 (10 pts), medication regimen (5 pts), language barrier (5 pts). Notes Choroidal neovascular membrane right eye us Gonzales Chappell MD, PhD OPHTHALMOLOGY PROCEDURE S Final Result * OCT, RETINA - OU - BOTH EYES - [place] (09/12/2025 1:44 PM EST) Caterina MAY - 09/12/2025 2:15 PM EST Right Eye Quality was good. Disease has: been worsened. Left Eye Quality was good. Disease has: been stable. Notes OD: Multiple serous and drusenoid PEDs, increased thickening nasal OS: Scattered drusen, shallow PED x2 superiorly, stable us Gonzales Chappell MD, PhD OPHTHALMOLOGY IMAGING F inal Result YADIRA * Intravitreal Injection, Pharmacologic Agent - [...] mL Route: Intravitreal, Site: Right Eye [facility]: 81571-063-00, Lot: [id number], Expiration date: 09/01/2026, Waste: 0 mL Post-Procedure Pain Assessment: 0. Fall Risk Reassessment: age >65 (10 pts), medication regimen (5 pts), language barrier (5 pts). Notes Choroidal neovascular membrane right eye us Gonzales Chappell MD, PhD OPHTHALMOLOGY PROCEDURE S Final Result * OCT, RETINA - OU - BOTH EYES - [place] (07/25/2025 1:58 PM EDT) Narrative YADIRA - [...] from Last 3 Months Insurance MEDICARE REPLACEMENT [facility] MEDICARE REPLACEMENT [place] [id number] MEDICARE REPLACEMENT MEDICARE REPLACEMENT MEDICARE REPLACEMENT [facility] MEDICARE REPLACEMENT Care Teams Mower Mechanic Relationship Specialty Start Date End Date Milton Houser MD [address] [place] [phone] PCP - General Internal Medicine 10/21/23 Additional Source Comments The information contained in this document represents components of the legal health record. It is not the complete legal health record.[facility]
== END 2025-10-04 16:30 | disposition home or self-care (01) ==
LOC: HO.ENCR 15:52
PROVIDERS: PCP Internal Medicine; Visit Provider Student in an Organized Health Care Education/Training Program
DX: E04.2 Nontoxic multinodular goiter (principal); M81.0 Age-related osteoporosis without current pathological fracture
CPT/HCPCS: 99213

== ENCOUNTER → 2025-10-04 15:51 | Outpatient (BNVA) | payer MEDICARE, SELFPAY | PROVIDERS: PCP Internal Medicine; Visit Provider Student in an Organized Health Care Education/Training Program | DX: E04.2 Nontoxic multinodular goiter (principal); M81.0 Age-related osteoporosis without current pathological fracture | CPT/HCPCS: 99212 ==

== ENCOUNTER 2025-10-17 10:00 | Outpatient (AMB) | payer MEDICARE, SELFPAY ==
--- NOTE | 2025-10-17 10:18 | AM.OFFVISNUR ---
Intake Visit Reasons: Evenity #4 Allergies No Known Allergies Allergy (Verified 07/05/25 14:01) Office Meds romosozumab-aqqg 210 mg/2.34 mL(105 mg/1.17 mL x2)subcutaneous syringe Performing Provider: Angelica Land MD Performing Location: [facility] Endocrinology Administered by: Jacque Bartholomew RN on 10/17/25 10:10 Dose Route Admin Location Dispensed Lot Number Expiration Date [facility] Pressurization Mechanic 210 mg subcut bilateral upper arms 2.34 mL [id number] 01/31/28 90008-150-73 [facility] Total Dispensed Waste 2.34 mL 0 % Comments: Pt accompanied by son who interpreted visit. Pt declined interpreter deaf. Pt reported small bruise on left elbow with tenderness. I advised pt's son that it doesn't look to be related to the Evenity, but to keep an eye on it and to call the office if it starts to get worse. Pt tolerated injection well and is scheduled for next injection in 4 weeks. Pt had no further questions at this time. Assessment & Plan Assessment & Plan Orders: Orders AMB Romosozumab Injection Patient Supplied Today M81.0 - Age-related osteoporosis without current pathological fracture Coding
--- OUTSIDE RECORDS SUMMARY | 2025-10-17 12:12 | XMS_ITS | Encounter Summary ---
Author Organization [facility] Address [address] [place] [address] Phone Care Team Providers Care Home Designer Name Role Phone Jodie Holden MD Primary Care Pro vider Milton Houser MD Primary Care Provider [phone] Encounter Details Date Type Department Care Team (Late st Contact Info) Description 05/20/2022 Procedure Pass [facility] [address] [place] [address] Social History Tobacco Use Types Packs/Day Years [...] Description 10/31/2025 1:30 PM EST Procedure visit [facility] [address] [place] [address] Gonzales Chappell MD, PhD [address] [place] [phone] [email or web address] 01/18/2026 11:00 AM EDT Office Visit [facility] [address] [place] [address] Mook Delgadillo PA-C [address] [place] [address] [email or web address] documented as of this encounter Visit Diagnoses Not on filedocumented in this encounter Care Teams Home Designer Relationship Specialty Start Date End Date Jodie Holden MD [address] [place] [address] PCP - General Internal Medicine 11/11/19 10/20/23 Milton Houser MD [address] [place] [address] PCP - General Internal Medicine 10/21/23 documented as of this encounter Additional Source Comments The information contained in this document represents components of the legal health record. It is not the complete legal health record.[facility]
--- OUTSIDE RECORDS SUMMARY | 2025-10-17 12:12 | XMS_ITS | Clinical Summary ---
Author Organization [facility] [address] [facility] Building Address [address] [place] [address] Phone Care Team Providers Care Automation Engineering Manager Name Role Phone Milton Houser MD Primary Care Provider [phone] Allergies No known active allergies Medications donepeziL (ARICEPT) 10 mg tablet Take 1 tablet (10 mg total) by mouth at bedtime. 02/26/20 23 Active loratadine (CLARITIN) 10 mg tablet Take 1 Tab by mouth daily as needed for Allergies (or ear symptoms) for up to 360 days. 01/16/20 20 Active UNABLE TO FIND Misc. 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 TUNNEL FORM PLACING SUPERVISOR) Misc 1 Units by Does not apply [...] Diagnosed Date Postmenopausal bleeding 04/12/2025 Alzheimer's disease 12/05/2024 History of colon cancer 10/11/2024 Assessment & Plan (04/27/2025 10:29 AM EDT): Pt declines further colonoscopies due to age Hx of parathyroidectomy 12/15/2022 Dermatochalasis of both eyelids 02/14/2021 Overview (08/05/2024): Skin overhanging upper lashes, visual field testing showing significant blockage, but patient declined to proceed with surgery; evaluated with Dr. Hilario at [facility] 02/14/2021 Insomnia 12/25/2019 Right knee pain 08/30/2017 Hyperparathyroidism 02/19/2017 Overview (08/05/2024): [facility], Dr. Kami Alan, declined surgical [...] tritis; COMMENT: Upper endoscopy 2016 Colon cancer (CMS/HCC V24, C MS/HCC V28) [...] Orientation Straight 11/22/2024 9: 00 AM EST Last Filed Vital Signs Vital Sign Reading [...] AM EST Office Visit Internal Medicine - [address] [phone] Malena Roberts NP [address] [place] [id number] Health Maintenance Due Date Last Done Comments [...] Associated Diagnosis Comments COMPREHENSIVE METABOLIC PANEL Routine 07/05/2025 8:46 AM EDT Mixed hyperlipidemia LIPID PANEL WITH REFLEX TO DIRECT LDL Routine 07/05/2025 8:46 AM EDT Mixed hyperlipidemia DXA BONE DENSITY STUDY 1+ SITS AXIAL SKEL Routine 08/15/2021 2:23 PM EDT Unspecified menopausal and perimenopausal disorder HM COLONOSCOPY Routine 08/09/2020 from Last 3 Months or Most Recently Relevant to Health Maintenance Results * Lipid panel with reflex to direct LDL (07/05/2025 8:46 AM EDT) Cholesterol 163 0 - 200 mg/dL LAB CHEMISTRY METHOD 07/05/2025 1:43 PM EDT [facility] Triglycerides 95 0 - 150 mg/dL LAB CHEMISTRY METHOD 07/05/2025 1:43 PM EDT [facility] HDL 70 >=40 mg/dL LAB CHEMISTRY METHOD 07/05/2025 1:43 PM EDT [facility] LDL Calculated 74 0 - 100 mg/dL LAB CHEMISTRY METHOD 07/05/2025 1:43 PM EDT [facility] Comment:Estimated LDL Calcul ated using equation: Total cholesterol - HDL cholesterol - (Triglycerides/5) VLDL Cholesterol Rafal 19 mg/dL LAB CHEMISTRY METHOD 07/05/2025 1:43 PM EDT [facility] Non HDL Chol. (LDL+VLDL) 93 <145 mg/dL LAB CHEMISTRY METHOD 07/05/2025 1:43 PM EDT [facility] Chol/HDL Ratio 2.3 0.0 - 4.4 LAB CHEMISTRY METHOD 07/05/2025 1:43 PM T [facility] Blood Venous blood specimen / Unknown Venipuncture / Unknown 07/05/2025 8:46 AM EDT 07/05/2025 8:46 AM EDT us Malena Roberts NP LAB BLOOD ORDERABLES Final Resul t [facility] [address] [place] [address], [place] [phone] * (ABNORMAL) Comprehensive metabolic panel (07/05/2025 8:46 AM EDT) Sodium 143 133 - 145 mmol/L LAB CHEMISTRY METHOD 07/05/2025 1:43 PM EDT [facility] Potassium 4.6 3.5 - 5.5 mmol/L LAB CHEMISTRY METHOD 07/05/2025 1:43 PM [facility] Chloride 108 96 - 110 mmol/L LAB CHEMISTRY METHOD 07/05/2025 1:43 PM [facility] CO2 30 21 - 32 mmol/L LAB CHEMISTRY METHOD 07/05/2025 1:43 PM T [facility] Anion Gap 5 3 - 11 LAB CHEMISTRY METHOD 07/05/2025 1:43 PM [facility] Glucose 85 70 - 100 mg/dL LAB CHEMISTRY METHOD 07/05/2025 1:43 PM [facility] BUN 18 5 - 25 mg/dL LAB CHEMISTRY METHOD 07/05/2025 1:43 PM [facility] Creatinine 1.04 0.50 - 1.10 mg/dL LAB CHEMISTRY METHOD 07/05/2025 1:43 PM [facility] eGFR 53(L) >=60 mL/min/1. 73m2 LAB CHEMISTRY METHOD 07/05/2025 1:43 PM [facility] Comment:Calculation based on the Chronic Kidney Disease Epidemiology Collaboration (CKD-EPI) equation refit without adjustment for race. BUN/Creatinine Ratio 17.3 LAB CHEMISTRY METHOD 07/05/2025 1:43 PM [facility] Calcium 9.6 8.5 - 10.5 mg/dL LAB CHEMISTRY METHOD 07/05/2025 1:43 PM [facility] AST (SGOT) 24 10 - 42 unit/L LAB CHEMISTRY METHOD 07/05/2025 1:43 PM [facility] ALT (SGPT) 22 10 - 60 unit/L LAB CHEMISTRY METHOD 07/05/2025 1:43 PM [facility] Alkaline Phosphatase 74 42 - 121 unit/L LAB CHEMISTRY METHOD 07/05/2025 1:43 PM [facility] Total Protein 6.6 6.0 - 8.0 g/dL LAB CHEMISTRY METHOD 07/05/2025 1:43 PM [facility] Albumin 3.6 3.2 - 5.0 g/dL LAB CHEMISTRY METHOD 07/05/2025 1:43 PM [facility] Total Bilirubin 0.5 0.0 - 1.4 mg/dL LAB CHEMISTRY METHOD 07/05/2025 1:43 PM [facility] Blood Venous blood specimen / Unknown Venipuncture / Unknown 07/05/2025 8:46 AM EDT 07/05/2025 8:46 AM EDT us Malena Roberts NP LAB BLOOD ORDERABLES Final Resul t [facility] [address] [place] [address], * DXA BONE DENSITY STUDY 1+ SITS [...] should be classified as having osteoporosis. The [facility] Department of Internal Medicine recommends using National [...] [place] should beclassified as having osteoporosis. The [facility] Department of Internal Medicine recommendsusing National Osteoporosis [...] of fracture risk by FRAX. Alfredito [facility] DXA PROCEDURES Final Result * Hm Colonoscopy (08/09/2020) HM Colonoscopy no interpretation , abstracted Anatomical Region Laterality Modality Other us Historical Provider HEALTH MAINTENANCE Final Result from Last 3 Months or Most Recently Relevant to Health Maintenance Insurance [place]ICA[place] [phone] Care Teams Automation Engineering Manager Relationship Specialty Start Date End Date Milton Houser MD [address] [place] [id number] PCP - General Internal Medicine 09/14/24
--- OUTSIDE RECORDS SUMMARY | 2025-10-17 12:13 | XMS_ITS | Clinical Summary ---
Author Organization 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 of Neurology [address] [place] [address] Mook Delgadillo PA-C Medication Refill 07/25/2025 1:20 PM EDT Procedure visit [facility] [address] [place] [address] Gonzales Chappell MD, PhD Exudative age-related macular [...] Description 10/31/2025 1:30 PM EST Procedure visit [facility] [address] [place] [address] Gonzales Chappell MD, PhD [address] [place] [phone] [email or web address] 01/18/2026 11:00 AM EDT Office Visit [facility] of Neurology [address] [place] [address] Mook Delgadillo PA-C [address] [place] [phone] [email or web address] Health Maintenance Due Date Last Done Comments [...] mg/0.05 mL Route: Intravitreal, Site: Right Eye [facility]: 16378-877-19, Lot: [id number], Expiration date: 10/02/2026, Waste: 0 mL Post-Procedure Pain Assessment: 0. Fall Risk Reassessment: age >65 (10 pts), medication regimen (5 pts), language barrier (5 pts). Notes Choroidal neovascular membrane right eye us Gonzales Chappell MD, PhD OPHTHALMOLOGY PROCEDURE S Final Result * OCT, RETINA - OU - BOTH EYES - [place] (09/12/2025 1:44 PM EST) Caterina MAY - [...] mg/0.05 mL Route: Intravitreal, Site: Right Eye [facility]: 64748-752-07, Lot: [id number], Expiration date: 09/01/2026, Waste: 0 mL Post-Procedure Pain Assessment: 0. Fall Risk Reassessment: age >65 (10 pts), medication regimen (5 pts), language barrier (5 pts). Notes Choroidal neovascular membrane right eye us Gonzales Chappell MD, PhD OPHTHALMOLOGY PROCEDURE S Final Result * OCT, RETINA - OU - BOTH EYES - [place] (07/25/2025 1:58 PM EDT) Narrative YADIRA - [...] REPLACEMENT [facility] MEDICARE REPLACEMENT [place] [id number] MEDICARE REPLACEMENT MEDICARE REPLACEMENT MEDICARE REPLACEMENT [facility] MEDICARE REPLACEMENT Care Teams Lathe Machine Operator Relationship Specialty Start Date End Date Milton Houser MD [address] [place] [phone] PCP - General Internal Medicine 10/21/23 Additional Source Comments The information contained in this document represents components of the legal health record. It is not the complete legal health record.[facility]
== END 2025-10-17 10:17 | disposition home or self-care (01) ==
LOC: HO.ENCR 10:00
PROVIDERS: PCP Internal Medicine; Visit Provider Student in an Organized Health Care Education/Training Program
DX: M81.0 Age-related osteoporosis without current pathological fracture (principal)

== ENCOUNTER → 2025-10-17 10:00 | Outpatient (BNVA) | payer MEDICARE, SELFPAY | PROVIDERS: PCP Internal Medicine; Visit Provider Student in an Organized Health Care Education/Training Program | DX: M81.0 Age-related osteoporosis without current pathological fracture (principal) | CPT/HCPCS: 96372; J3111 ==